=== PATIENT | male | born 1960 | race Caucasian/White ===

== ENCOUNTER 2023-08-19 07:12 | Emergency (ER) | payer OTHER, SELFPAY ==
[2023-08-19 07:26] VITALS: BP 148/85; PULSE 64; TEMP 36.7; O2SAT 95; BMI 27.8
--- NOTE | 2023-08-19 07:40 | XR_ITS ---
The [address] [address] Patient Name: ROXIE LYNCH MRN: [id number] date: 1960 Sex: M Assigned Patient Location: ER Current Patient Location: ER Accession/Order Number: [id number] Exam Date: 08/19/2023 07:45 Report Date: 08/19/2023 08:36 At the request of: ROXIE HARRIS Procedure: XR wrist LT min 3V PROCEDURE: XR wrist LT min 3V DATE: 08/19/2023 6:45 AM CDT COMPARISONS: None CLINICAL INDICATION: pain, fall FINDINGS: There is no evidence of fractures or other acute osseous abnormalities. There is mild first carpometacarpal degenerative change. There is evidence of mild radiocarpal degenerative change. There is slight cystic change of the proximal row carpal bones and of the distal ulna probably related to radiocarpal degenerative changes. XR/XR wrist LT min 3V IMPRESSION: 1. There is evidence of degenerative changes of the wrist, as described above 2. There is no fractures or other acute osseous abnormalities. Electronically authenticated by: ZOHAIB SETHI Date: 08/19/2023 08:36
--- NOTE | 2023-08-19 07:40 | XR_ITS ---
The [address] [address] Patient Name: ROXIE LYNCH MRN: [id number] date: 1960 Sex: M Assigned Patient Location: ER Current Patient Location: ED.MAIN Accession/Order Number: [id number] Exam Date: 08/19/2023 07:45 Report Date: 08/19/2023 08:32 At the request of: ROXIE HARRIS Procedure: XR elbow LT min 3V PROCEDURE: XR elbow LT min 3V DATE: 08/19/2023 6:45 AM CDT COMPARISONS: None CLINICAL INDICATION: pain, fall FINDINGS: There is an oblique fracture of the radial head. An 11 mm lateral chip fracture fragment is displaced distally 1 to 2 mm No other fractures identified. All other osseous structures in good alignment. An elbow joint effusion is noted. XR/XR elbow LT min 3V IMPRESSION: Slightly displaced oblique fracture of the radial head associated joint effusion Electronically authenticated by: ZOHAIB SETHI Date: 08/19/2023 08:32
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
[2023-08-19 09:29] VITALS: PULSE 78; O2SAT 99
== END 2023-08-19 09:32 | disposition home or self-care (01) ==
PROVIDERS: Emergency Provider Student in an Organized Health Care Education/Training Program
DX: S52.122A Displaced fracture of head of left radius, initial encounter for closed fracture (principal); Y93.55 Activity, bike riding
CPT/HCPCS: 29105; 73080; 73110; 99283

== ENCOUNTER 2023-08-27 10:55 | Outpatient (OUT) | payer OTHER, SELFPAY ==
--- NOTE | 2023-08-27 | XR_ITS ---
[address] [address] Patient Name: ROXIE LYNCH MRN: [id number] date: 1960 Sex: M Assigned Patient Location: Current Patient Location: Accession/Order Number: [id number] Exam Date: 08/27/2023 10:56 Report Date: 08/28/2023 06:53 At the request of: TINO LIPSCOMB Procedure: XR wrist LT min 3V PROCEDURE: XR wrist LT min 3V, XR forearm LT 2V HISTORY: LEFT WRIST PAIN COMPARISON: XR wrist left 08/19/2023 FINDINGS: BONES:Small nondisplaced fracture with mild cortical step off involving the radial head articular surface. Mild degenerative change of the wrist joint. SOFT TISSUES:No visible soft tissue swelling. EFFUSION:None visible. OTHER: Negative. XR/XR wrist LT min 3V IMPRESSION: 1. Stable nondisplaced to very minimally displaced radial head fracture. 2. Mild degenerative changes of the wrist. No acute bone abnormality of the wrist. Electronically authenticated by: TINO ANN Date: 08/28/2023 06:53
--- NOTE | 2023-08-27 | XR_ITS ---
[address] [address] Patient Name: ROXIE LYNCH MRN: [id number] date: 1960 Sex: M Assigned Patient Location: Current Patient Location: Accession/Order Number: [id number] Exam Date: 08/27/2023 11:11 Report Date: 08/28/2023 06:53 At the request of: TINO LIPSCOMB Procedure: XR forearm LT 2V PROCEDURE: XR wrist LT min 3V, XR forearm LT 2V HISTORY: LEFT WRIST PAIN COMPARISON: XR wrist left 08/19/2023 FINDINGS: BONES:Small nondisplaced fracture with mild cortical step off involving the radial head articular surface. Mild degenerative change of the wrist joint. SOFT TISSUES:No visible soft tissue swelling. EFFUSION:None visible. OTHER: Negative. XR/XR forearm LT 2V IMPRESSION: 1. Stable nondisplaced to very minimally displaced radial head fracture. 2. Mild degenerative changes of the wrist. No acute bone abnormality of the wrist. Electronically authenticated by: TINO ANN Date: 08/28/2023 06:53
== END 2023-08-27 10:56 | disposition home or self-care (01) ==
LOC: EC 10:55
PROVIDERS: Visit Provider Orthopaedic Surgery
DX: S52.125D Nondisplaced fracture of head of left radius, subsequent encounter for closed fracture with routine healing (principal)
CPT/HCPCS: 73090; 73110

== ENCOUNTER 2023-09-03 12:25 | Outpatient (OUT) | payer OTHER, SELFPAY ==
--- NOTE | 2023-09-03 | XR_ITS ---
The [address] [address] Patient Name: ROXIE LYNCH MRN: [id number] date: 1960 Sex: M Assigned Patient Location: Current Patient Location: Accession/Order Number: [id number] Exam Date: 09/03/2023 12:35 Report Date: 09/04/2023 08:29 At the request of: TINO LIPSCOMB Procedure: XR elbow LT min 3V PROCEDURE: XR elbow LT min 3V COMPARISON: 08/19/2023 HISTORY: LEFT ELBOW PAIN FINDINGS: BONES:Stable healing intra-articular fracture of the radial head best seen on image #2 and 3. No additional fracture or dislocation. SOFT TISSUES:Negative. No visible soft tissue swelling. EFFUSION:Elbow joint effusion with displacement of the anterior and posterior fat pads OTHER: Negative. XR/XR elbow LT min 3V IMPRESSION: Stable healing radial head fracture with small joint effusion Electronically authenticated by: PATTI ALBRECHT Date: 09/04/2023 08:29
== END 2023-09-03 12:26 | disposition home or self-care (01) ==
LOC: EC 12:25
PROVIDERS: Visit Provider Orthopaedic Surgery
DX: S52.125D Nondisplaced fracture of head of left radius, subsequent encounter for closed fracture with routine healing (principal)
CPT/HCPCS: 73080

== ENCOUNTER 2023-10-01 10:00 | Outpatient (OUT) | payer OTHER, SELFPAY ==
--- NOTE | 2023-10-01 | XR_ITS ---
The [address] [address] Patient Name: ROXIE LYNCH MRN: [id number] date: 1960 Sex: M Assigned Patient Location: Current Patient Location: Accession/Order Number: [id number] Exam Date: 10/01/2023 10:00 Report Date: 10/02/2023 06:53 At the request of: TINO LIPSCOMB Procedure: XR elbow LT min 3V PROCEDURE: XR elbow LT min 3V HISTORY: LEFT ELBOW PAIN COMPARISON: XR elbow left 09/03/2023, 08/19/2023 FINDINGS: BONES:Subtle residual fracture line visible within the radial head extending into the articular surface. No change in alignment. SOFT TISSUES:Small joint effusion. EFFUSION:None visible. OTHER: Negative. XR/XR elbow LT min 3V IMPRESSION: 1. Stable alignment and ongoing bone healing of radial head fracture. Electronically authenticated by: TINO ANN Date: 10/02/2023 06:53
--- OUTSIDE RECORDS SUMMARY | 2023-10-01 10:17 | XMS_ITS | CCD ---
Author Organization [facility] Care Team Providers Care Overhead Foreman Name Role Phone Placeway DO, Tadeo Unavailable Anton Walton MD Primary Care Provider Gen Cuevas MD Unavailable Placeway DO, Tadeo Unavailable Anton Walton MD Primary Care Provider Gen Cuevas MD Unavailable Kimberly Rajan Unavailable Placeway DO, Tadeo Unavailable [phone] Anton Walton MD Primary Care Provider Gen Cuevas MD Unavailable Kimberly Rajan Unavailable Torsten Mosqueda MD Primary Care Provider [phone] TORSTEN MOSQUEDA Primary Care Unavailable PROVIDER, UNKNOWN Admitting Unavailable ANTON WALTON Attending Unavailabl e ANTON WALTON Primary Care Unavailabl e Medications Current Medications Medication Drug Class(es) Dates Sig (Normalized) Sig (Original) atorvastatin 20 mg oral tablet (20 sources) HMG-CoA Reductase Inhibitor Start: 2 End: 5 take 1 tablet by mouth once daily atorvastatin (LIPITOR) 20 mg tablet Take 1 tablet by mouth once daily 90 Tablet 3 07/12/2023 Active cetirizine hydrochloride 10 mg oral tablet (1 source) Histamine-1 Receptor Antagonist Start: 4 End: 4 take 1 tablet by mouth once daily cetirizine (ZYRTEC) 10 mg tablet Indications: Seasonal allergic rhinitis, unspecified trigger Take 1 tablet by mouth once daily. 30 tablet 0 06/20/2023 07/20/2023 Active ciclopirox 80 mg/ml topical solution (1 source) Start: 4 ciclopirox (PENLAC) 8 % solution Apply topically at bedtime. 6 mL 3 08/06/2023 Active famotidine 20 mg oral tablet (20 sources) Histamine-2 Receptor Antagonist Start: 2 End: 3 take 1 tablet by mouth twice daily as needed famotidine (PEPCID) 20 MG tablet TAKE 1 TABLET BY MOUTH TWICE DAILY NEEDED 180 Tablet 3 09/06/2021 Active fluticasone propionate 0.05 mg/actuat metered dose nasal spray (1 source) Corticosteroid Start: 4 take 1 spray(s) nasal route once daily fluticasone (FLONASE ALLERGY RELIEF) 50 mcg/actuation nasal spray Indications: Seasonal allergic rhinitis, unspecified trigger Use 1 [place] in each nostril once daily. 11.1 mL 0 06/20/2023 Active methylPREDNISolone (1 source) Corticosteroid Start: 4 End: 4 methylPREDNISolone (MEDROL, SHEKHAR,) 4 mg Dose-Pack Indications: Seasonal allergic rhinitis, unspecified trigger Take as instructed per package. 21 tablet 0 06/20/2023 06/26/2023 Active metroNIDAZOLE 500 mg oral tablet (2 sources) Nitroimidazole Antimicrobial Start: 2 End: 2 take 1 tablet by mouth twice daily metronidazole (FLAGYL) 500 MG tablet Indications: Abdominal bloating , Gastroesophageal reflux disease, unspecified whether esophagitis present , Hyperlipidemia, unspecified hyperlipidemia type Take 1 Tablet by mouth 2 times daily for 7 days. 14 Tablet 0 11/01/2021 11/08/2021 Active triamcinolone acetonide 1 mg/ml topical cream (19 sources) Corticosteroid Start: 2 End: 4 triamcinolone 0.1 % cream Indications: Gastroesophageal reflux disease, unspecified whether esophagitis present , Duodenitis , Hyperlipidemia, unspecified hyperlipidemia type , Elevated LFTs , Erectile disorder due to medical condition in male , Elevated blood sugar Apply thin layer to affected area BID PRN. 80 g 2 08/03/2023 Active Completed/Discontinued Medications Medication Drug Class(es) Dates Sig (Normalized) Sig (Original) bisacodyl 5 mg delayed release oral tablet (7 sources) Stimulant Laxative Start: 2 End: 2 bisacodyl (Dulcolax) 5 MG enteric coated tablet Take as directed for colonoscopy preparation 4 Tablet 0 05/18/2021 07/22/2021 Discontinued docosahexaenoic acid 120 mg / eicosapentaenoic acid 180 mg oral capsule (14 sources) End: 2 [place]-3 Fatty Acids (Fish Oil) 1000 MG CAPS Take by mouth. 0 11/28/2021 Discontinued efinaconazole 100 mg/ml topical solution (3 sources) Azole Antifungal Start: 4 End: 4 Efinaconazole (Jublia) 10 % SOLN Indications: Elevated blood sugar Apply to affected toenail(s) daily for 48 weeks; ensure complete coverage of the toenail, the toenail folds, toenail bed, surrounding skin, and the undersurface of the toenail plate. 8 mL 3 08/03/2023 08/17/2023 Discontinued Gadoterate Meglumine (DOTAREM) 10 MMOL/20ML solution (1 source) Start: 2 End: 2 Gadoterate Meglumine (DOTAREM) 10 MMOL/20ML solution loratadine 10 mg oral tablet (1 source) End: 4 take 1 tablet by mouth once daily loratadine (CLARITIN) 10 mg tablet Take 10 mg by mouth once daily. 0 06/20/2023 Discontinued (Course of therapy completed) omeprazole 40 mg delayed release oral capsule (3 sources) Proton Pump Inhibitor Start: 2 End: 2 take 1 capsule by mouth once daily omeprazole (PRILOSEC) 40 MG capsule Indications: Rash of back , Gastroesophageal reflux disease, unspecified whether esophagitis present , Duodenitis , Hyperlipidemia, unspecified hyperlipidemia type , Elevated LFTs Take 1 Capsule by mouth daily. 56 Capsule 0 07/22/2021 11/01/2021 Discontinued ondansetron 4 mg disintegrating oral tablet (10 sources) Serotonin-3 Receptor Antagonist Start: 2 End: 2 take 1 tablet by mouth every six hours as needed for nausea ondansetron (Zofran ODT) 4 MG disintegrating tablet Take 1 Tablet by mouth every 6 hours as needed for Nausea (Vomiting). Place 1 tablet under tongue as needed for nausea. 20 Tablet 0 04/25/2021 07/22/2021 Discontinued saccharomyces boulardii 250 mg oral capsule (12 sources) Start: 2 End: 2 take 1 capsule by mouth twice daily Saccharomyces boulardii (Probiotic) 250 MG CAPS Take 1 Capsule by mouth 2 times daily. 60 Capsule 3 05/02/2021 11/01/2021 Discontinued tadalafil 10 mg oral tablet (20 sources) Phosphodiesterase 5 Inhibitor Start: 1 End: 4 tadalafil (CIALIS) 10 MG tablet Indications: Erectile disorder due to medical condition in male Take 1 Tablet by mouth as needed for Erectile Dysfunction. 30 minutes prior to anticipated sexual activity as one single dose and not more than once daily. 20 Tablet 2 05/28/2023 08/03/2023 Discontinued (Reorder (*won't e-cancel)) Problems Active Problems Problem Classification Problem Date Documented Da te Episodic/Chronic Diabetes mellitus without complication (2 sources) Hyperglycemia; Translations: [Hyperglycemia, unspecified] 08-03-2023 Episodic Disorders of lipid metabolism (20 sources) Hyperlipidemia; Translations: [Hyperlipidemia, unspecified] Onset: 2 Chronic Diverticulosis and diverticulitis (20 sources) Diverticulitis of intestine; Translations: [Diverticulitis of intestine, part unspecified, without perforation or abscess without bleeding] Onset: 2 04-05-2021 Chronic Esophageal disorders (20 sources) Gastroesophageal reflux disease; Translations: [Gastro-esophageal reflux disease without esophagitis] Onset: 2 Chronic Gastritis and duodenitis (20 sources) Duodenitis; Translations: [Duodenitis without bleeding] Onset: 2 Episodic Immunizations and screening for infectious disease (3 sources) Patient encounter status; Translations: [Encounter for laboratory testing for severe acute respiratory syndrome coronavirus 2 (SARS-CoV-2)] Episodic Miscellaneous mental health disorders (20 sources) Male erectile disorder; Translations: [Impotence of organic origin] Onset: 1 12-15-2020 Chronic Other gastrointestinal disorders (3 sources) Abdominal bloating; Translations: [Abdominal distension (gaseous)] Episodic Other gastrointestinal disorders (2 sources) Passing flatus; Translations: [Flatulence] Episodic Other gastrointestinal disorders (2 sources) Loose stool; Translations: [Other fecal abnormalities] Episodic Other liver diseases (4 sources) Steatosis of liver; Translations: [Fatty (change of) liver, not elsewhere classified] Chronic Other male genital disorders (7 sources) Secondary erectile dysfunction; Translations: [Erectile dysfunction due to diseases classified elsewhere] Onset: 1 Chronic Other nutritional; endocrine; and metabolic disorders (2 sources) Body mass index 25-29 - overweight; Translations: [Body mass index (BMI) 27.0-27.9, adult] Episodic Other nutritional; endocrine; and metabolic disorders (5 sources) Overweight in adulthood with body mass index of 25 or more but less than 30; Translations: [Body mass index (BMI) 28.0-28.9, adult] Episodic Other screening for suspected conditions (not mental disorders or infectious disease) (20 sources) Other specified abnormal findings of blood chemistry; Translations: [Other abnormal blood chemistry] Onset: 2 Episodic Other skin disorders (2 sources) Eruption; Translations: [Rash and other nonspecific skin eruption] Episodic Other upper respiratory disease (1 source) Seasonal allergic rhinitis; Translations: [Other seasonal allergic rhinitis] 06-20-2023 Chronic Pancreatic disorders (not diabetes) (1 source) Idiopathic chronic pancreatitis; Translations: [Other chronic pancreatitis] Chronic Spondylosis; intervertebral disc disorders; other back problems (20 sources) Disorder of lumbar spine; Translations: [Spondylosis without myelopathy or radiculopathy, lumbar region] Onset: 1 12-15-2020 Chronic Past or Other Problems Problem Classification Problem Date Documented Da te Episodic/Chronic Gastrointestinal hemorrhage (20 sources) Black feces; Translations: [Melena] Onset: 04-05-2021 04-05-2021 Episodic Genitourinary symptoms and ill-defined conditions (20 sources) Nocturia; Translations: [Nocturia] Onset: 12-15-2020 12-15-2020 Episodic Other and unspecified benign neoplasm (20 sources) History of polyp of colon; Translations: [Personal history of colonic polyps] Onset: 02-16-2016 04-19-2020 Episodic Other gastrointestinal disorders (20 sources) Alteration in bowel elimination; Translations: [Change in bowel habit] Onset: 04-05-2021 04-05-2021 Episodic Other gastrointestinal disorders (6 sources) Altered bowel function; Translations: [Change in bowel habit] Onset: 04-05-2021 04-05-2021 Episodic Residual codes; unclassified (20 sources) Family history of cancer of colon; Translations: [Family history of malignant neoplasm of digestive organs] Onset: 02-16-2016 04-19-2020 Episodic Results Test Name Value Interpretation Reference Range Facility Patient Instructionson 08-02 Fire Prevention Specialist Authentication Interface Message Text RSV vaccine recommended from pharmacy. Normal [facility] Progress Noteson 08-03-2023 Fire Prevention Specialist Authentication Interface Message Text Follow up. History of Present Illness: 63 year old male seen and assessed. Right sided sciatica , lumbar disorder, sub acute condition much better. Fh colon cancer, next colonoscopy due in 2021. Monitor spot on chest round left chest small area. Intermittent rash on buttocks, folliculitis? Has been to [place] for honeymoon. Likes to be on boat in summer. Alcohol summer some times. Env allergies more mucus these days. 1 daughter , planning to be in [place] soon. Dad in 2020. Trouble maintaining erection, has used cialis in the past done well, in the past. dating a girl. 06/03/21 63 year old male seen and assessed. hld borderline glucose. pepcid taking helping stomach. In afternoon at times feels little unsteady, and is intermittent. Was on tums , and mild elevation in calcium, has stopped since in er few weeks ago. Recent scan show small polyp, in gastric antrum first portion of duodenum? Hepatic steatosis Colonoscopy and endoscopy happening soon. 07/22/21 63 year old male seen and assessed. stomach symptoms ongoing Gerd. Taking lipitor. counseled on covid booster. daughter teaching israeli in [place]. 11/01/21 63 year old male seen and assessed. Feels better but abd still bloated after eating. Had covid in August 2021. Moving bowels once daily. Will be getting blood work today. 4 drinks a week alcohol. 08/03/23 63 year old male seen and assessed. Post nasal drip concerns current meds not helping. Bloating improved after decreased fruits intake. Bug spray with d using. Daughter back , doing masters now. In [place]. 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 Biking, walking. Walking 6 miles, right toes cause problems but wants to wait at this time. Pepcid as needed. Wagu beef,/[employer], [place], beef delicious . Lipids (last 3 years, up to 8 values) 11/01/2021 06/09/2021 12/16/2020 4:12 PM 8:02 AM 7:55 AM Chol- esterol 140 232 187 TG 221 139 262 HDL 33 32 28 LDL 78 182 125 Chol / HDL 4.24 7.25 6.68 LDL / HDL 2.36 5.69 4.46 Non HDL 107 200 159 The 10-year ASCVD risk score (Antony RAZA, et al., 2019) is: 9.8% Lab Results Component Value Date HBA1C 5.6 12/17/2020 Orders placed or performed during the hospital encounter of 06/08/21 COLONOSCOPY, FLEXIBLE; W/REMOVAL, LESION, SNARE COLONOSCOPY, FLEXIBLE; W/REMOVAL, LESION, SNARE COLONOSCOPY, FLEXIBLE, PROXIMAL TO SPLENIC FLEXURE; DX, W/WO SPECIMENS/COLON DECOMP (SEP PROC) COLONOSCOPY, FLEXIBLE, PROXIMAL TO SPLENIC FLEXURE; DX, W/WO SPECIMENS/COLON DECOMP (SEP PROC) The 10-year ASCVD risk score (Antony RAZA, et al., 2019) is: 9.8% Orders placed or performed during the hospital encounter of 06/08/21 COLONOSCOPY, FLEXIBLE; W/REMOVAL, LESION, SNARE COLONOSCOPY, FLEXIBLE; W/REMOVAL, LESION, SNARE COLONOSCOPY, FLEXIBLE, PROXIMAL TO SPLENIC FLEXURE; DX, W/WO SPECIMENS/COLON DECOMP (SEP PROC) COLONOSCOPY, FLEXIBLE, PROXIMAL TO SPLENIC FLEXURE; DX, W/WO SPECIMENS/COLON DECOMP (SEP PROC) Vitals: 08/03/23 1325 BP: 121/66 Pulse: Resp: Temp: SpO2: Past Medical History: Lumbar disorder Sciatica Past Surgical History: Left hand 5th finger surgery had surgery Social History: Social History Socioeconomic History Marital status: Highest education level: 12th grade Tobacco Use Smoking status: Never Smokeless tobacco: Never Substance and Sexual Activity Alcohol use: Yes Comment: occ Drug use: Not Currently Social Determinants of Health Financial Resource Strain: Low Risk (08/02/2023) Overall Financial Resource Strain (CARDIA) Difficulty of Paying Living Expenses: Not very hard Food Insecurity: No Food Insecurity (08/02/2023) Hunger Vital Sign Worried About Running Out of Food in the Last Year: Never true Ran Out of Food in the Last Year: Never true Transportation Needs: No Transportation Needs (08/02/2023) PRAPARE - Transportation Lack of Transportation (Medical): No Lack of Transportation (Non-Medical): No Physical Activity: Sufficiently Active (08/02/2023) Exercise Vital Sign Days of Exercise per Week: 6 days Minutes of Exercise per Session: 60 min Stress: Stress Concern Present (08/02/2023) [place] [employer] Occupational [employer] - Occupational Stress Questionnaire Feeling of Stress : To some extent Social Connections: Socially Isolated (08/02/2023) Social Connection and Isolation Panel [NHANES] Frequency of Communication with Friends and Family: Three times a week Frequency of Social Gatherings with Friends and Family: Twice a week Attends Hindu Services: Never Active Member of Clubs or Organizations: No Attends Club or Organization Meetings: Never Marital Status: Intimate Partner Violence: Not At Risk (08/02/2023) Humiliation, Afraid, Rape, and Kick questionnaire Fear of Current or Ex-Partner: No Emotionally Abused: No Physically Abused: No Sexually Abused: No Family History: Mom and dad passe (more content not included)... Normal [facility] Fire Prevention Specialist Authentication Interface Message Text Patient was identified by name and date of . Dolly WoodardoPatient was identified by name and date of . Patient at risk for falls:No Falls Risk protocol implemented: No Shingles vaccine was given. VIS sheet was given. Normal [facility] Kelsie 06-20-2023 MATT Office Visit (EXPNOL) SOTOSERGEI ([id number]) 1960 M Date Time Provider Department 06/20/23 12:20 PM KRISKRYSTA GARCIA JOANNE During your visit today, we recorded the following information about you: Temperature Pulse Respiration Blood pressure 98 degrees 72/minute 16/minute 133/80 Weight 93.8 kg Ce HyattAPRN. harjitMANAGER FLIGHT 06/20/2023 1:55 PM Signed Increase fluid intake (WATER) and REST, as much as possible Can take acetaminophen and/or ibuprofen, as directed, for pain or fever. Avoid NSAIDs (ie: ibuprofen/Advil/Alev e/motrin) with any history of ulcers or gastric surgery Use a cool-mist vaporizer or humidifier Can use over the counter cough lozenges with menthol- use as directed on the package. Encouraged use of Flonase (nasal steroid to help decrease inflammation). Remember, you must be consistent with use to allow the steroid to build-up adequately in your nasal tissue. Insert nozzle into each nostril, angle towards outside of your nose, take very small sniff . Encouraged to use nightly before going to bed. Saline nasal spray can be used for nasal congestion, as needed. Consider taking a daily antihistamine if you have a lot of drainage/runny nose, such as Claritin/Zyrtec/Xyza l/Christy, etc. Take antibiotics as prescribed - to completion- and with food. Encouraged probiotic or yogurt with live cultures (not within 1-2 hours of antibiotics) If you have high blood pressure, AVOID decongestants. If you are a diabetic, make sure you are closely monitoring your blood sugar levels as they can become unstable with illness. - Follow up with your PCP if you continue to experience symptoms, if they return shortly after treatment, or if they worsen - If symptoms are ongoing and/or recurrent, you may need to follow up with an clean room operator and/or ENT - Go to the ER if you begin to experience any severe symptoms, such as facial, eye, or cheek swelling on one side of your face, labored breathing/difficulty breathing, shortness of breath or chest pain, stiffness in neck, difficulty waking up or lethargy, severe headaches, or a rash that looks like a bruise Bulat, Krysta, GIFT SHOP ASSISTANT.BLAYNE 06/20/2023 2:31 PM Signed This note was created using Trendratingriter. Subjective Sergei Soto is a 63 year old male. Patient presents with concerns for sinus pressure and thick nasal mucous x 2 weeks. Patient reports an initial iprovement of symptoms before a decline the last few days. Patient takes Claritin with little impact. Denies any fever or chills. The history is provided by the patient. No senior controls technician was used. Sinus Problem This is a new problem. The current episode started 1 to 4 weeks ago. The problem occurs constantly. The problem has been unchanged. Associated symptoms include congestion, coughing and fatigue. Pertinent negatives include no chest pain, chills, fever, headaches or nausea. Review of Systems Constitutional: Positive for fatigue. Negative for chills and fever. HENT: Positive for congestion, sinus pressure and sinus pain. Eyes: Negative. Respiratory: Positive for cough. Negative for shortness of breath. Cardiovascular: Negative for chest pain. Gastrointestinal: Negative for nausea. Genitourinary: Negative for dysuria. Musculoskeletal: Negative. Neurological: Negative for dizziness and headaches. All other systems reviewed and are negative. Objective BP 133/80 (BP Site: Left Arm, BP Position: Sitting, BP Cuff Size: Regular Adult) Pulse 72 Temp 36.7 ?C (98 ?F) (Temporal) Resp 16 Wt 93.8 kg (206 lb 12.7 oz) SpO2 98% BMI 28.05 kg/m? Physical Exam Vitals and nursing note reviewed. HENT: Head: Normocephalic. Right Ear: Tympanic membrane is injected. Left Ear: Tympanic membrane is injected. Nose: Congestion present. Right Turbinates: Enlarged. Left Turbinates: Enlarged. Mouth/Throat: Mouth: Mucous membranes are moist. Pharynx: Oropharynx is clear. Eyes: Pupils: Pupils are equal, round, and reactive to light. Cardiovascular: Rate and Rhythm: Normal rate and regular rhythm. Heart sounds: Normal heart sounds. Pulmonary: Effort: Pulmonary effort is normal. Breath sounds: Normal breath sounds. Musculoskeletal: Cervical back: Neck supple. No tenderness. Skin: General: Skin is warm and dry. Neurological: Mental Status: He is alert and oriented to person, place, and time. Assessment and Plan ASSESSMENT/PLAN: 1. Seasonal allergic rhinitis, unspecified trigger - ICD9: 477.9, ICD10: J30.2 - ~ 2 weeks of sinus pressure and thick nasal mucous - Recent eval by PCP without complaints - Physical exam notable for enlarged nasal turbinates and bilateral tympanic injection. Lungs clear, posterior pharynx without erythema - Denies fever/chills - Plan for targeted symptom management with escalation of antihistamine, addition of nasal steroid and Medro (more content not included)... Normal [facility] Telephone Encounteron 2023 Fire Prevention Specialist Authentication Interface Message Text Patient has not been seen by this Provider or Department in more than 1 year. Pharmacy has sent a Skyonic message to the patient to schedule an office visit. Thank you Normal [facility] LIVER ELASTOGRAPHYon 022 Tiara Blackburn APRN-CNP 12/19/2021 4:35 PM Velocity Controlled Transient Elastography (Fibroscan) Batch Records Clerk: Suzette Tamayo Attending: Tiara Blackburn APRN-CNP Patient was identified via name and . Sergei Soto presents to endoscopy suite for VCTE. Referring Provider: Self Patient Diagnosis: Hepatic steatosis [254418] Two Pt identifiers where confirmed. Pt procedure and orders verified verbal consent obtained. Probe used: XL Pre-procedure Checklist Presence of ascites? Yes Fasting for at least three hours? Yes Alcohol use? No History of right heart failure? No LFT's (last 3 years, up to 5 values) (Last 5 results in the past 3 years) T Prot Albumin D Bili T Bili Alk Phos ALT AST 12/16/21 0846 7.2 4.6 0.30 1.5 83 105 56 11/01/21 1612 7.3 4.6 0.20 1.2 91 71 57 06/09/21 0802 7.4 4.5 0.10 1.1 80 58 38 04/25/21 1428 7.4 4.7 0.10 0.6 87 50 29 03/17/21 0936 7.3 4.1 0.20 1.1 82 22 13 ] Platelet Date Value Ref Range Status 04/25/2021 156 150 - 400 K/uL Final 03/17/2021 162 150 - 400 K/uL Final Findings: Elastography Median kPa: 5.4 IQR/med (%): 9 Controlled Attenuation Parameter (CAP) Median (dB/m): 285 IQR : 58 Interpretation: Based on LSM of 5.4 KPa, the patient has evidence of No significant fibrosis (F0-F1) with Grade 2 steatosis. If F3 or F4 fibrosis, please formally refer patient to hepatology. Interpreting Provider: Tiara Blackburn, MICHAEL-BLAYNE [facility] HEPATIC FUNCTION PANELOrdere d By: Wisam Devries on 12-16-2021 Albumin [Mass/Vol] 4.6 g/dL 3.4 - 5.1 g/dL [facility] ALP [Catalytic activity/Vol] 83 U/L [facility] ALT [Catalytic activity/Vol] 105 U/L High [facility] AST [Catalytic activity/Vol] 56 U/L High [facility] Bilirubin [Mass/Vol] 1.5 mg/dL 0.1 - 1 .5 mg/dL [facility] Bilirubin.direct [Mass/Vol] 0.30 mg/dL 0.10 - 0.30 mg/dL [facility] Interpretation and review of laboratory results Abnormal [facility] Protein [Mass/Vol] 7.2 g/dL 5.7 - 8.1 g/dL [facility] Laboratory - Chemistry and C hemistry - challengeon 11-30-2021 IgA [Mass/Vol] 121 mg/dL 78 - 391 mg/dL [facility] CRP [Mass/Vol] 0.9 mg/dL High NINF - 0.8 mg/dL [facility] Laboratory - Serology - non- microon 11-30-2021 tTG IgA IA Qn (S) U/mL NINF - 15. 0 U/mL [facility] No Panel Informationon 11-30 Interpretation and review of laboratory results Normal [facility] Interpretation and review of laboratory results Abnormal [facility] Basic metabolic 2000 panelon 11-02-2021 Anion gap [Moles/Vol] 13 mmol/L 10 - 20 [facility] Calcium [Mass/Vol] 9.7 mg/dL 8.4 - 10. 4 mg/dL [facility] Chloride [Moles/Vol] 104 mmol/L 97 - 11 1 mmol/L [facility] CO2 [Moles/Vol] 25 mmol/L 21 - 30 mmol/L [facility] Creatinine [Mass/Vol] 1.27 mg/dL 0.8 - 1.3 mg/dL [facility] GFR/1.73 sq M.predicted MDRD (S/P/Bld) [Vol rate/Area] 64 mL/min/{1.73_m2} - PINF [facility] Comment on above: 2020 CKD EPI Equatio n using Creatinine without Race Comment: Estimated glomerular filtration rate (eGFR) is calculated without a race coefficient. Values should be interpreted in the context of the patient's full clinical presentation. Reference: 1. Jack C, Skyla M, Hattie LOVE, et al.. A Unifying Approach for GFR Estimation: Recommendations of the NKF-ASN Task Force on Reassessing the Inclusion of Race in Diagnosing Kidney Disease. [place] Journal of Kidney Diseases 202;79(2):268-88.e1. 2. N Engl J Med 2020 Vol. 385 Issue 19 Pages 1491-0500 Glucose [Mass/Vol] 93 mg/dL 80 - 116 mg/dL [facility] Interpretation and review of laboratory results Normal [facility] Potassium [Moles/Vol] 4.0 mmol/L 3.3 - 5.3 mmol/L [facility] Sodium [Moles/Vol] 138 mmol/L 135 - 148 mmol/L [facility] Urea nitrogen [Mass/Vol] 13 mg/dL 8 - 22 mg/dL [facility] HEPATIC FUNCTION PANELon Albumin [Mass/Vol] 4.6 g/dL 3.4 - 5.1 g/dL [facility] ALP [Catalytic activity/Vol] 91 U/L [facility] ALT [Catalytic activity/Vol] 71 U/L High [facility] AST [Catalytic activity/Vol] 57 U/L High [facility] Bilirubin [Mass/Vol] 1.2 mg/dL 0.1 - 1 .5 mg/dL [facility] Bilirubin.direct [Mass/Vol] 0.20 mg/dL 0.1 - 0.3 mg/dL [facility] Interpretation and review of laboratory results Abnormal [facility] Protein [Mass/Vol] 7.3 g/dL 5.7 - 8.1 g/dL [facility] Lipid 1996 panelon Cholesterol [Mass/Vol] 140 mg/dL NINF - 200 mg/dL [facility] Cholesterol in HDL [Mass/Vol] 33 mg/dL Low 44 - PINF mg/dL [facility] Cholesterol in LDL [Mass/Vol] 78 mg/dL NINF - 111 mg/dL [facility] Cholesterol in LDL/Cholesterol in HDL [Mass ratio] 2.36 {ratio} NINF - 3.57 [facility] Cholesterol non HDL [Mass/Vol] 107 mg/dL NINF - 130 mg/dL [facility] Cholesterol.total/Ch olesterol in HDL [Mass ratio] 4.24 {ratio} NINF - 5.00 [facility] Interpretation and review of laboratory results Abnormal [facility] Triglyceride [Mass/Vol] 221 mg/dL High NINF - 151 mg/dL [facility] MR CHOLANG/PANCREAS (MRCP) W /+W/Oon 05-16-2021 EXAMINATION: MR CHOLANG/PANCREAS (MRCP) W/+W/O CLINICAL HISTORY: Reason for Exam: Pancreatitis, chronic; unclear etiology of chronic pancreatitis ASSOCIATED DIAGNOSIS: Idiopathic chronic pancreatitis (HCC) TECHNOLOGISTS NOTE: Performed under anesthesia. COMPARISON: None TECHNIQUE: Patient questionnaire was completed and was reviewed by MRI personnel prior to the patient entering the scanner. Multiplanar, multislice MR imaging of the abdomen was performed with and without intravenous contrast. INTRA-PROCEDURE MEDS: Gadoterate Meglumine (DOTAREM) 10 MMOL/20ML solution 15 mL INTRAVENOUS FINDINGS: Respiratory motion artifact: Grade 2: Mild artifact Liver parenchyma: Loss of signal is seen on the opo-hw-[id number] images compared to the in-phase images consistent with moderate hepatic steatosis. Liver focal lesions: There are no suspicious lesions. Subcentimeter cyst in the left hepatic dome (series 801, image 12). Hepatic vasculature: The portal vein is patent. Bile ducts: The common bile duct, common hepatic duct, and major intrahepatic biliary duct radicles are within normal limits. There is no evidence for contour abnormality or filling defect The common bile duct measures up to 4 mm in diameter. Gallbladder: Unremarkable Pancreas: The pancreatic duct is normal in course and caliber. There are no cystic or solid pancreatic masses appreciated. Spleen: Unremarkable Adrenal glands: Unremarkable Kidneys: No cystic or solid renal mass identified. Bowel: There is a 1.5 cm polypoid lesion in the distal gastric antrum/first portion of the duodenum (series 901, image 18), which is hyperintense on T2 imaging, enhances on postcontrast imaging and may represent either a polyp versus lipoma. Abdominal vasculature: Unremarkable Peritoneum and retroperitoneum: No significant volume of free fluid Lymph nodes: No abdominal lymphadenopathy is evident. Visualized musculoskeletal structures: No acute fracture or destructive osseous lesion is identified Included images of the lower thorax: No focal lung consolidation or pleural effusion. Bibasilar atelectasis. IMPRESSION: 1. No abnormality seen to explain chronic pancreatitis. Normal pancreas and gallbladder with no evidence of pancreatic divisum or cholelithiasis. 2. 1.5 cm polypoid lesion in the distal gastric antrum/first portion of the duodenum, could represent a polyp versus a lipoma. MACRO: None RADIOLOGY Rosemarie Purvis MD - 05/16/2021 EXAMINATION: MR CHOLANG/PANCREAS (MRCP) W/+W/O CLINICAL HISTORY: Reason for Exam: Pancreatitis, chronic; unclear etiology of chronic pancreatitis ASSOCIATED DIAGNOSIS: Idiopathic chronic pancreatitis (HCC) TECHNOLOGISTS NOTE: Performed under anesthesia. COMPARISON: None TECHNIQUE: Patient questionnaire was completed and was reviewed by MRI personnel prior to the patient entering the scanner. Multiplanar, multislice MR imaging of the abdomen was performed with and without intravenous contrast. INTRA-PROCEDURE MEDS: Gadoterate Meglumine (DOTAREM) 10 MMOL/20ML solution 15 mL INTRAVENOUS FINDINGS: Respiratory motion artifact: Grade 2: Mild artifact Liver parenchyma: Loss of signal is seen on the fji-op-loacd images compared to the in-phase images consistent with moderate hepatic steatosis. Liver focal lesions: There are no suspicious lesions. Subcentimeter cyst in the left hepatic dome (series 801, image 12). Hepatic vasculature: The portal vein is patent. Bile ducts: The common bile duct, common hepatic duct, and major intrahepatic biliary duct radicles are within normal limits. There is no evidence for contour abnormality or filling defect The common bile duct measures up to 4 mm in diameter. Gallbladder: Unremarkable Pancreas: The pancreatic duct is normal in course and caliber. There are no cystic or solid pancreatic masses appreciated. Spleen: Unremarkable Adrenal glands: Unremarkable Kidneys: No cystic or solid renal mass identified. Bowel: There is a 1.5 cm polypoid lesion in the distal gastric antrum/first portion of the duodenum (series 901, image 18), which is hyperintense on T2 imaging, enhances on postcontrast imaging and may represent either a polyp versus lipoma. Abdominal vasculature: Unremarkable Peritoneum and retroperitoneum: No significant volume of free fluid Lymph nodes: No abdominal lymphadenopathy is evident. Visualized musculoskeletal structures: No acute fracture or destructive osseous lesion is identified Included images of the lower thorax: No focal lung consolidation or pleural effusion. Bibasilar atelectasis. IMPRESSION: 1. No abnormality seen to explain chronic pancreatitis. Normal pancreas and gallbladder with no evidence of pancreatic divisum or cholelithiasis. 2. 1.5 cm polypoid lesion in the distal gastric antrum/first portion of the duodenum, could represent a polyp versus a lipoma. MACRO: None [facility] Radiology Study observation (narrative) [facility] MR CHOLANG/PANCREAS (MRCP) W /+W/OOrdered By: Rosemarie Purvis on 05-16-2021 [employer] Work Phone: Vital Signs Date Time Vital Sign Value Performing Clinician Faci johnsony 08-03-2023 13:25-0400 Diastolic blood pressure 66 mm[Hg] [facility] 08-03-2023 13:25-0400 Systolic blood pressure 121 mm[Hg] [facility] 08-03-2023 13:23-0400 Body height 182.9 cm Anton Walton MD Work Phone: [facility] 08-03-2023 13:23-0400 Body mass index (BMI) [Ratio] 28.09 kg/m2 Anton Walton MD [facility] 08-03-2023 13:23-0400 Body temperature 98.71 [degF] [facility] 08-03-2023 13:23-0400 Body weight 93.94 kg Anton [facility] 08-03-2023 13:23-0400 Heart rate 64 /min Anton Walton MD Work Phone: [facility] 08-03-2023 13:23-0400 Respiratory rate 18 /min Anton Walton MD Work Phone: [facility] 08-03-2023 13:23-0400 SaO2% (BldA) [Mass fraction] 99 % Anton Walton MD Work Phone: [facility] 06-20-2023 12:48-0400 Body mass index (BMI) [Ratio] 28.05 kg/m2 Krysta Bulat GIFT SHOP ASSISTANT.MANAGER FLIGHT Work Phone: [facility] 06-20-2023 12:48-0400 Body temperature 98.01 [degF] Krysta Bulat GIFT SHOP ASSISTANT.MANAGER FLIGHT Work Phone: [facility] 06-20-2023 12:48-0400 Body weight 93.8 kg Krysta Bulat GIFT SHOP ASSISTANT.MANAGER FLIGHT Work Phone: [facility] 06-20-2023 12:48-0400 Diastolic blood pressure 80 mm[Hg] Krysta Bulat GIFT SHOP ASSISTANT.MANAGER FLIGHT Work Phone: [facility] 06-20-2023 12:48-0400 Heart rate 72 /min Krysta Bulat GIFT SHOP ASSISTANT.MANAGER FLIGHT Work Phone: [facility] 06-20-2023 12:48-0400 Respiratory rate 16 /min Krysta Bulat GIFT SHOP ASSISTANT.MANAGER FLIGHT Work Phone: [facility] 06-20-2023 12:48-0400 SaO2% (BldA) [Mass fraction] 98 % Krysta Bulat GIFT SHOP ASSISTANT.MANAGER FLIGHT Work Phone: [facility] 06-20-2023 12:48-0400 Systolic blood pressure 133 mm[Hg] Krysta Bulat GIFT SHOP ASSISTANT.MANAGER FLIGHT Work Phone: [facility] 11-30-2021 09:37-0400 Body height 182.9 cm Kimberly Su APRN-MANAGER FLIGHT Work Phone: [facility] 11-30-2021 09:37-0400 Body mass index (BMI) [Ratio] 28.35 kg/m2 Kimberly Su APRN-MANAGER FLIGHT Work Phone: [employer] 11-30-2021 09:37-0400 Body temperature 97.5 [degF] Kimberly Su APRN-MANAGER FLIGHT Work Phone: [facility] 11-30-2021 09:37-0400 Body weight 94.8 kg Kimberly Su APRN-MANAGER FLIGHT Work Phone: [facility] 11-30-2021 09:37-0400 Diastolic blood pressure 76 mm[Hg] Kimberly Su APRN-MANAGER FLIGHT Work Phone: [facility] 11-30-2021 09:37-0400 Heart rate 76 /min Kimberly Su APRN-MANAGER FLIGHT Work Phone: [facility] 11-30-2021 09:37-0400 Respiratory rate 16 /min Kimberly Su APRN-MANAGER FLIGHT [facility]: [facility] 11-30-2021 09:37-0400 Systolic blood pressure 144 mm[Hg] Kimberly Su APRN-MANAGER FLIGHT [facility]: [facility] 11-01-2021 15:27-0400 Body height 182.9 cm Anton Walton MD Work [facility]: [facility] 11-01-2021 15:27-0400 Body mass index (BMI) [Ratio] 28.21 kg/m2 Anton Walton MD [facility] 11-01-2021 15:27-0400 Body temperature 97.39 [degF] Anton Walton MD Work Phone: [facility] 11-01-2021 15:27-0400 Body weight 94.35 kg Anton Walton MD Work Phone: [facility] 11-01-2021 15:27-0400 Diastolic blood pressure 67 mm[Hg] Anton Walton MD Work Phone: [facility] 11-01-2021 15:27-0400 Heart rate 59 /min Anton [facility] MD [facility] 11-01-2021 15:27-0400 Respiratory rate 16 /min Anton Wlaton MD Work [facility] 11-01-2021 15:27-0400 SaO2% (BldA) [Mass fraction] 100 % Anton Walton MD [facility] 11-01-2021 15:27-0400 Systolic blood pressure 133 mm[Hg] Anton Walton MD [facility] 07-22-2021 10:52-0400 Body mass index (BMI) [Ratio] 27.67 kg/m2 Anton Walton MD Work [facility] 07-22-2021 10:52-0400 Body temperature 97.59 [degF] Anton Walton MD [facility] 07-22-2021 10:52-0400 Body weight 92.53 kg Anton Walton MD Work [facility] 07-22-2021 10:52-0400 Diastolic blood pressure 67 mm[Hg] Anton Walton MD [facility] 07-22-2021 10:52-0400 Heart rate 89 /min Anton Walton MD [facility] 07-22-2021 10:52-0400 Systolic blood pressure 126 mm[Hg] Anton Walton MD [facility] 05-16-2021 15:45-0400 Diastolic blood pressure 70 mm[Hg] [address] [facility] 05-16-2021 15:45-0400 Heart rate 76 /min [facility] 05-16-2021 15:45-0400 Respiratory rate 15 /min [facility] 05-16-2021 15:45-0400 SaO2% (BldA) [Mass fraction] 96 % [address] 05-16-2021 15:45-0400 Systolic blood pressure 130 mm[Hg] [address] 05-16-2021 13:02-0400 Body height 182.9 cm 2 [facility] 05-16-2021 13:02-0400 Body mass index (BMI) [Ratio] 27.53 kg/m2 [address] 05-16-2021 13:02-0400 Body temperature 98.8 [degF] 2 [facility] 05-16-2021 13:02-0400 Body weight 92.08 kg 2 [facility] 05-09-2021 08:20-0400 Body height 182.9 cm Martyjuan antonio Bryan GIFT SHOP ASSISTANT-MANAGER FLIGHT Work Phone: [employer] 05-09-2021 08:20-0400 Body mass index (BMI) [Ratio] 27.94 kg/m2 Yazan Brayn GIFT SHOP ASSISTANT-MANAGER FLIGHT Work Phone: [employer] 05-09-2021 08:20-0400 Body temperature 96.6 [degF] Yazan Marylidya GIFT SHOP ASSISTANT-MANAGER FLIGHT Work Phone: [employer] 05-09-2021 08:20-0400 Body weight 93.44 kg Yazan Marylidya GIFT SHOP ASSISTANT-MANAGER FLIGHT Work Phone: [employer] 05-09-2021 08:20-0400 Diastolic blood pressure 68 mm[Hg] Martyjuan antonio Bryan GIFT SHOP ASSISTANT-MANAGER FLIGHT Work Phone: [employer] 05-09-2021 08:20-0400 Heart rate 70 /min Yazan Bryan GIFT SHOP ASSISTANT-MANAGER FLIGHT Work Phone: [employer] 05-09-2021 08:20-0400 Respiratory rate 16 /min Martyjuan antonio Bryan GIFT SHOP ASSISTANT-MANAGER FLIGHT Work Phone: [employer] 05-09-2021 08:20-0400 SaO2% (BldA) [Mass fraction] 100 % Martyjuan antonio Bryan GIFT SHOP ASSISTANT-MANAGER FLIGHT Work Phone: [facility] 05-09-2021 08:20-0400 Systolic blood pressure 118 mm[Hg] Yazan Marylidya GIFT SHOP ASSISTANT-MANAGER FLIGHT Work Phone: [facility] Encounters Encounter Date Encounter Type Care Provider Facility Start: 08-06-2023 End: 08-06-2023 ambulatory Anton Walton MD Work Phone: [facility] Comment on above: Ciclopirox generic e finaconazole Start: 08-06-2023 End: 08-06-2023 E-mail encounter from caregiver Anton Walton MD Work Phone: [facility] Start: 08-03-2023 End: 08-03-2023 Office outpatient visit 25 minutes Anton Walton MD Work Phone: [facility] Comment on above: Hyperlipidemia, unsp ecified hyperlipidemia type (Primary Dx); Gastroesophageal reflux disease, unspecified whether esophagitis present; Duodenitis; Elevated LFTs; Erectile disorder due to medical condition in male; Elevated blood sugar; Body mass index (BMI) 28.0-28.9, adult Start: 08-03-2023 End: 08-03-2023 Periodic preventive med est patient 40-64yrs Anton Walton MD Work Phone: [facility] Comment on above: Hyperlipidemia, unsp ecified hyperlipidemia type (Primary Dx); Gastroesophageal reflux disease, unspecified whether esophagitis present; Duodenitis; Elevated LFTs; Erectile disorder due to medical condition in male; Elevated blood sugar; Body mass index (BMI) 28.0-28.9, adult Start: 08-03-2023 End: 08-03-2023 ambulatory UNKNOWN PROVIDER Facility:[facility] Start: 07-12-2023 End: 07-12-2023 Refill Anton Walton MD Work Phone: [facility] Comment on above: Refill Start: 06-20-2023 End: 06-20-2023 ambulatory TORSTEN MOSQUEDA Facility:[facility] Start: 06-20-2023 End: 06-20-2023 Office outpatient visit 15 minutes Krysta Edmar GIFT SHOP ASSISTANT.MANAGER FLIGHT Work Phone: [facility] Comment on above: Seasonal allergic rh initis, unspecified trigger (Primary Dx) Start: 05-27-2023 Refill Anton Walton MD Work Phone: [facility] Comment on above: Refill Start: 03-04-2023 Letter encounter Tadeo Placewa y DO Work Phone: [facility] Start: 12-26-2021 Telephone encounter Kimberly dias GIFT SHOP ASSISTANT-MANAGER FLIGHT Work Phone: [facility] Gastroenterology Start: 12-19-2021 Refill Anton Walton MD Work Phone: [facility] Comment on above: Refill Start: 12-19-2021 End: 12-19-2021 Subsequent hospital visit by physician [facility] 1 [facility] Comment on above: Hepatic steatosis (P rimary Dx) Start: 12-16-2021 End: 12-16-2021 Clinical Support [facility] Pathology Start: 11-30-2021 End: 12-01-2021 Office outpatient visit 15 minutes Kimberly Su GIFT SHOP ASSISTANT-MANAGER FLIGHT Work Phone: [facility] Gastroenterology Comment on above: Bloating (Primary Dx ); Flatus; Hepatic steatosis; Loose stools; Body mass index (BMI) 28.0-28.9, adult Start: 11-28-2021 Letter encounter Tadeo Placewa y DO Work Phone: [facility] Start: 11-01-2021 End: 11-02-2021 Office outpatient visit 25 minutes Anton Walton MD Work Phone: [facility] Comment on above: Abdominal bloating ( Primary Dx); Gastroesophageal reflux disease, unspecified whether esophagitis present; Hyperlipidemia, unspecified hyperlipidemia type; Elevated LFTs; Body mass index (BMI) 28.0-28.9, adult Start: 11-01-2021 End: 11-01-2021 Clinical Support [facility] Work Phone: [facility] Comment on above: Arrived Start: 09-06-2021 Refill Anton Walton MD Work Phone: [facility] Comment on above: Refill Start: 07-22-2021 End: 07-22-2021 Office outpatient visit 25 minutes Anton Walton MD Work Phone: [facility] Comment on above: Gastroesophageal ref lux disease, unspecified whether esophagitis present (Primary Dx); Rash of back; Duodenitis; Hyperlipidemia, unspecified hyperlipidemia type; Elevated LFTs; Body mass index (BMI) 27.0-27.9, adult Start: 06-09-2021 Telephone encounter Anton Walton MD Work Phone: [facility] Comment on above: Discuss results test /procedures; reference -06/14/21 Start: 06-03-2021 Orders Only Kimberly Su GIFT SHOP ASSISTANT-MANAGER FLIGHT Work Phone: [facility] Gastroenterology Start: 05-31-2021 Orders Only Kimberly Su GIFT SHOP ASSISTANT-MANAGER FLIGHT Work Phone: [facility] Gastroenterology Start: 05-30-2021 Orders Only Kimberly Su GIFT SHOP ASSISTANT-MANAGER FLIGHT Work Phone: [facility] Gastroenterology Start: 05-20-2021 [facility] Start: 05-18-2021 Telephone encounter Abdoulaye wise MD Work Phone: [facility] Start: 05-16-2021 End: 05-16-2021 Subsequent hospital visit by physician Farideh Hunter MD Work Phone: [facility] Radiology Comment on above: Idiopathic chronic p ancreatitis (HCC) Start: 05-09-2021 End: 05-09-2021 Office outpatient new 45 minutes Yazan Bryan GIFT SHOP ASSISTANT-[facility] Work Phone: [facility] Pre-Surgical Evaluation Comment on above: Preop examination (P rimary Dx); Body mass index (BMI) 27.0-27.9, adult Start: 05-09-2021 End: 05-09-2021 Preprocedural examination done Yazan Bryan GIFT SHOP ASSISTANT-[facility] Work Phone: [facility] Pre-Surgical Evaluation Start: 05-05-2021 Letter encounter Tadeo Placewa y DO Work Phone: [facility] Patient Access Procedures Date Procedure Procedure Detail Performing Clinician Start: 12-19-2021 Liver elastography w /o imag w/i&r Tiara Blackburn GIFT SHOP ASSISTANT-[facility] Work Phone: Start: 12-16-2021 Hepatic function panel Anton Walton MD Work Phone: Start: 11-30-2021 C-reactive protein Kimberly Su GIFT SHOP ASSISTANT-[facility] Work Phone: Start: 11-01-2021 Hepatic function panel Anton Walton MD Work Phone: Start: 11-01-2021 Lipoprotein dir anabel high density cholesterol Anton Walton MD Work Phone: Start: 11-01-2021 Lipid 1996 panel - S annalee or Plasma Krysta Bulat GIFT SHOP ASSISTANT.[facility] Work Phone: Start: 06-08-2021 Colonoscopy Tadeo Plac eway DO Work Phone: Start: 05-16-2021 Mri abdomen w/o & w/contrast material Gen Cuevas MD Work Phone: Plan of Treatment Date Care Activity Detail Author Start: 06-09-2031 Screening for malignant neoplasm of colon [facility] Start: 11-01-2026 [facility] Start: 06-09-2026 Lipid panel Cholesterol [facility] Start: 03-10-2026 [facility] Start: 03-10-2026 Urine microalbumin profile DTaP,Tdap,Td Vaccine (2 - T d or Tdap) [facility] Start: 12-16-2025 Lipid panel Cholesterol [facility] Start: 12-16-2025 Prostate specific antigen measurement Prostate Cancer Screening Discussion [facility] Start: 11-01-2024 Diabetes Screening Diabetes Screening [facility] Start: 11-06-2023 Influenza vaccination Influenza Vaccine (#1) [facility] Start: 10-07-2023 Influenza vaccination Influenza Vaccine (Season Ended) [facility] Start: 09-28-2023 Shingles (RZV) Vaccine (2 of 2) Shingles (RZV) Vaccine (2 of 2) [facility] Start: 09-14-2023 End: 09-14-2023 Patient encounter procedure 09/14/2023 4:20 PM EDT Office Visit [facility] [address] [place] [id number] Anton Walton MD [address] [place] [address] [facility] Start: 02-05-2023 Behavioral Health Screening Behavioral Health Screening [facility] Start: 10-06-2022 COVID-19 Vaccine ( season) COVID-19 Vaccine ( season) [facility] Start: 10-06-2022 Influenza vaccination Influenza Vaccine (#1) [facility] Start: 06-08-2022 Screening for malignant neoplasm of colon [facility] Start: 05-05-2022 End: 05-05-2022 Patient encounter procedure 05/05/2022 Office Visit Gerontology Anton Walton MD [address] [place] [address] [facility] Start: 03-28-2022 End: 06-25-2022 Hepatic function panel HEPATIC FUNCTION PANEL Lab Routine Hepatic steatosis Expected: 03/28/2022, Expires: 06/25/2022 [employer] Work Phone: Comment on above: Expected: 03/28/2022, Expires: Start: 12-19-2021 End: 12-19-2021 Patient encounter procedure 12/19/2021 Appointment Gastroenterology [facility] Start: 12-16-2021 Prostate specific antigen measurement Prostate Cancer Screening (shared decision making) [facility] Start: 11-30-2021 End: 01-29-2022 Assay of calprotectin fecal CALPROTECTIN, STOOL Lab Routine Loose stools Expected: 11/30/2021 (Approximate), Expires: 01/29/2022 [facility] Comment on above: Expected: 11/30/2021 (Approximate), Expi res: 01/29/2022 Start: 11-30-2021 End: 01-29-2022 Cul bact stool aerobic isol salmonella&shigell STOOL CULTURE Microbiology Routine Loose stools Expected: 11/30/2021 (Approximate), Expires: 01/29/2022 [facility] Comment on above: Expected: 11/30/2021 (Approximate), Expi res: 01/29/2022 Start: 11-30-2021 End: 01-29-2022 Elastase pancreatic fecal qual/semi-isatu PANCREATIC ELASTASE, STOOL Lab Routine Loose stools Expected: 11/30/2021 (Approximate), Expires: 01/29/2022 [employer] Work Phone: Comment on above: Expected: 11/30/2021 (Approximate), Expi res: 01/29/2022 Start: 11-30-2021 End: 01-29-2022 Fat stain feces urine/respir secretions FECAL FAT, QUALITATIVE (CRIT * Lab Routine Loose stools Expected: 11/30/2021 (Approximate), Expires: 01/29/2022 [facility] Comment on above: Expected: 11/30/2021 (Approximate), Expi res: 01/29/2022 Start: 11-30-2021 End: 01-29-2022 Iaad ia giardia GIARDIA/CRYPTO EIA Microbiology Routine Loose stools Expected: 11/30/2021 (Approximate), Expires: 01/29/2022 [facility] Comment on above: Expected: 11/30/2021 (Approximate), Expi res: 01/29/2022 Start: 11-30-2021 End: 11-30-2021 Patient encounter procedure 11/30/2021 Office Visit Gastroenterology Kimberly Su APRN-CNP [address] [place] [address] [facility] Start: 11-05-2021 Influenza vaccination Influenza Vaccine (#1) [facility] Start: 11-01-2021 End: 11-01-2021 Patient encounter procedure 11/01/2021 Office Visit Gerontology Anton Walton MD [address] [place] [address] [facility] Start: 09-05-2021 End: 12-29-2021 Basic metabolic 2000 panel - Serum or Plasma BASIC METABOLIC PANEL Lab Routine Rash of back Gastroesophageal reflux disease, unspecified whether esophagitis present Duodenitis Hyperlipidemia, unspecified hyperlipidemia type Elevated LFTs Expected: 09/05/2021, Expires: 12/29/2021 [facility] Work Phone: Comment on above: Expected: 09/05/2021, Expires: 2 Start: 09-05-2021 End: 12-29-2021 Hepatic function panel HEPATIC FUNCTION PANEL Lab Routine Rash of back Gastroesophageal reflux disease, unspecified whether esophagitis present Duodenitis Hyperlipidemia, unspecified hyperlipidemia type Elevated LFTs Expected: 09/05/2021, Expires: 12/29/2021 [facility] Comment on above: Expected: 09/05/2021, Expires: 2 Start: 09-05-2021 End: 12-29-2021 Lipid 1996 panel - Serum or Plasma FULL LIPID PROFILE Lab Routine Rash of back Gastroesophageal reflux disease, unspecified whether esophagitis present Duodenitis Hyperlipidemia, unspecified hyperlipidemia type Elevated LFTs Expected: 09/05/2021, Expires: 12/29/2021 [facility] Comment on above: Expected: 09/05/2021, Expires: 2 Start: 08-31-2021 End: 08-31-2021 Evaluation and management of inpatient 08/31/2021 Office Visit Gerontology Anton Walton MD [address] [place] [id number] [facility] Start: 06-08-2021 End: 06-08-2021 Admission to same day surgery center 06/08/2021 Surgery Gastroenterology Gen Cuevas MD [address] [place] [id number] ESOPHAGOGASTRODUODENOSCOPY AND COLONOSCOPY [facility] Comment on above: ESOPHAGOGASTRODUODENOSCOPY AND COLONOSCO PY Start: 06-08-2021 End: 06-08-2021 ESOPHAGOGASTRODUODENOSCOPY AND COLONOSCOPY ESOPHAGOGASTRODUODENOSCOPY AND COLONOSCOPY Routine scheduled Acute diverticulitis Black stool Change in bowel habits 06/08/2021 2:00 PM EDT [facility] Start: 06-08-2021 Subsequent hospital visit by physician 06/08/2021 Hospital Encounter Gastroenterology Gen Cuevas MD [address] [place] [id number] [facility] Start: 06-03-2021 End: 07-03-2021 SARS-CoV-2 (COVID-19) RNA [Presence] in Unspecified specimen by DEMETRIS with probe detection NOVEL CORONAVIRUS (COVID-19) Lab Routine Encounter for laboratory testing for severe acute respiratory syndrome coronavirus 2 (SARS-CoV-2) Expected: 06/03/2021, Expires: 07/03/2021 [facility] Work Phone: Comment on above: Expected: 06/03/2021, Expires: Start: 06-03-2021 End: 06-03-2021 Patient encounter procedure 06/03/2021 Office Visit GerontologAnton Merchant MD [address] [place] [id number] [facility] Start: 05-31-2021 End: 06-30-2021 SARS-CoV-2 (COVID-19) RNA [Presence] in Unspecified specimen by DEMETRIS with probe detection NOVEL CORONAVIRUS (COVID-19) Lab Routine Encounter for laboratory testing for severe acute respiratory syndrome coronavirus 2 (SARS-CoV-2) Expected: 05/31/2021, Expires: 06/30/2021 [facility] Work Phone: Comment on above: Expected: 05/31/2021, Expires: 2 Start: 05-30-2021 End: 06-29-2021 SARS-CoV-2 (COVID-19) RNA [Presence] in Unspecified specimen by DEMETRIS with probe detection NOVEL CORONAVIRUS (COVID-19) Lab Routine Encounter for laboratory testing for severe acute respiratory syndrome coronavirus 2 (SARS-CoV-2) Expected: 05/30/2021, Expires: 06/29/2021 [facility] Work Phone: Comment on above: Expected: 05/30/2021, Expires: Start: 05-25-2021 COVID-19 Vaccine (4 - Booster for Pfizer series) COVID-19 Vaccine (4 - Booster for Pfizer series) [facility] Start: 05-16-2021 End: 05-16-2021 Patient encounter procedure 05/16/2021 Appointment Radiology [facility] Start: 05-09-2021 End: 05-09-2021 Patient encounter procedure 05/09/2021 Office Visit Presurgical Evaluation Yazan Adams, GIFT SHOP ASSISTANT-MANAGER FLIGHT [address] [facility] [place] [address] [facility] Start: 03-21-2021 COVID-19 Vaccine (4 - Booster for Pfizer series) COVID-19 Vaccine (4 - Booster for Pfizer series) [facility] Start: 2020 Hepatitis B (HBV) Vaccine (optional start 60+ years) Hepatitis B (HBV) Vaccine (optional start 60+ years) [facility] Start: 2020 RSV Vaccine (1 - 1-dose 60+ series) RSV Vaccine (1 - 1-dose 60+ series) [facility] Start: 2020 RSV vaccine (optional 60+ years) RSV vaccine (optional 60+ years) [facility] Start: 02-25-2010 Measurement of occult blood in single stool specimen [facility] Start: 02-25-2010 Shingrix Vaccine (1 of 2) Shingrix Vaccine (1 of 2) [facility] Start: 02-25-2010 Varicella-zoster vaccine (product) Shingles (RZV) Vaccine (1 of 2) [facility] Start: 02-25-2005 Screening for malignant neoplasm of colon [facility] Start: 02-25-1979 Hepatitis A (HAV) Vaccine (optional start 19+ years) Hepatitis A (HAV) Vaccine (optional start 19+ years) [facility] Start: 02-25-1978 Hepatitis C screening Hepatitis C Antibody [facility] Start: 02-25-1978 HIV screening HIV Screening [facility] Start: 02-25-1975 HIV screening HIV Test [facility] Assay of calprotectin fecal CALP ROTECTIN, STOOL Lab Routine Loose stools 12/14/2021 9:35 AM EST [facility] End: 12-19-2023 Basic metabolic 2000 panel - Serum or Plasma BASIC METABOLIC PANEL Lab Routine Gastroesophageal reflux disease, unspecified whether esophagitis present Duodenitis Hyperlipidemia, unspecified hyperlipidemia type Elevated LFTs Erectile disorder due to medical condition in male Elevated blood sugar 1 Occurrences starting 08/03/2023 until 12/19/2023 [facility] Comment on above: 1 Occurrences starting 08/03/2023 until 12/19/2023 End: 12-19-2023 CBC W Auto Differential panel - Blood COMPLETE BLOOD COUNT W/DIFF Lab Routine Gastroesophageal reflux disease, unspecified whether esophagitis present Duodenitis Hyperlipidemia, unspecified hyperlipidemia type Elevated LFTs Erectile disorder due to medical condition in male Elevated blood sugar 1 Occurrences starting 08/03/2023 until 12/19/2023 [facility] Comment on above: 1 Occurrences starting 08/03/2023 until 12/19/2023 Cul bact stool aerob ic isol salmonella&shigell STOOL CULTURE Microbiology Routine Loose stools 12/14/2021 9:35 AM EST [facility] End: 12-19-2023 Diabetes tracking panel HEMOGLOBIN A1C Lab Routine Gastroesophageal reflux disease, unspecified whether esophagitis present Duodenitis Hyperlipidemia, unspecified hyperlipidemia type Elevated LFTs Erectile disorder due to medical condition in male Elevated blood sugar 1 Occurrences starting 08/03/2023 until 12/19/2023 [facility] Comment on above: 1 Occurrences starting 08/03/2023 until 12/19/2023 Elastase pancreatic fecal qual/semi-isatu PANCREATIC ELASTASE, STOOL Lab Routine Loose stools 12/14/2021 9:35 AM EST [facility] Fat stain feces urin e/respir secretions FECAL FAT, QUALITATIVE (CRIT * Lab Routine Loose stools 12/14/2021 9:35 AM EST [facility] End: 12-19-2023 Hepatic function panel HEPATIC FUNCTION PANEL Lab Routine Gastroesophageal reflux disease, unspecified whether esophagitis present Duodenitis Hyperlipidemia, unspecified hyperlipidemia type Elevated LFTs Erectile disorder due to medical condition in male Elevated blood sugar 1 Occurrences starting 08/03/2023 until 12/19/2023 [facility] [employer] [facility] Work Phone: Comment on above: 1 Occurrences starting 08/03/2023 until 12/19/2023 Iaad ia giardia GIARDIA/CRYPTO E IA Microbiology Routine Loose stools [facility]: 12-19-2023 Lipid 1996 panel - Serum or Plasma FULL LIPID PROFILE Lab Routine Gastroesophageal reflux disease, unspecified whether esophagitis present Duodenitis Hyperlipidemia, unspecified hyperlipidemia type Elevated LFTs Erectile disorder due to medical condition in male Elevated blood sugar 1 Occurrences starting 08/03/2023 until 12/19/2023 [facility] Comment on above: 1 Occurrences starting 08/03/2023 until 12/19/2023 Immunizations Immunization Date Immunization Notes Care Provider Fa [facility] 08-03-2023 zoster vaccine recombinant Anton Walton MD Work Phone: [facility] 12-16-2021 influenza, injectabl e, quadrivalent, preservative free [facility] 12-16-2021 influenza virus vaccine, unspecified formulation Tadeo Placeway DO Work Phone: [facility] 12-12-2021 Pfizer Bivalent Booster (12+ YRS) SARS-COV-2 (COVID-19) vaccine, mRNA, spike protein, LNP, pres. free, 30 mcg/0.3mL dose, myranda-sucrose (KQA=656) Kimberly DAVISMANAGER FLIGHT Work Phone: [facility] 01-24-2021 Pfizer SARS-COV-2 (COVID-19) vaccine, age 12+ yrs, mRNA, spike protein, LNP, preservative free, 30 mcg/0.3mL dose (TBB=[id number]) Tadeo Placeway DO Work Phone: [facility] 12-15-2020 influenza, injectabl e, quadrivalent, preservative free Tadeo Placeway DO Work Phone: [facility] 12-15-2020 influenza virus vaccine, unspecified formulation Anton Walton MD Work Phone: [facility] 05-26-2020 Pfizer SARS-COV-2 (COVID-19) vaccine, age 12+ yrs, mRNA, spike protein, LNP, preservative free, 30 mcg/0.3mL dose ([id number]=575) Tadeo Placeway DO Work Phone: [facility] Work Phone: 05-05-2020 Pfizer SARS-COV-2 (COVID-19) vaccine, age 12+ yrs, mRNA, spike protein, LNP, preservative free, 30 mcg/0.3mL dose (XVZ=350) Tadeo Placeway DO Work Phone: [facility] Work Phone: 12-14-2016 influenza, injectabl e, quadrivalent, contains preservative Tadeo Placeway DO Work Phone: [facility] 03-10-2016 tetanus toxoid, reduced diphtheria toxoid, and acellular pertussis vaccine, adsorbed Tadeo Placeway DO Work Phone: [facility] Payers Date Payer Category Payer Unknown [id number] 2016 Unknown [id number] 1960 Unknown [id number] Social History Date Type Detail Facility Start: 04-19-2020 End: 11-01-2021 Tobacco smoking status NHIS Never smoked tobacco [facility] Start: 04-19-2020 End: 11-01-2021 Tobacco use and exposure Smokeless tobacco non-user [facility] Start: 03-18-2021 End: 07-19-2021 History SDOH Financial 4 [facility] Start: 03-18-2021 End: 07-19-2021 History SDOH Food Worry 1 [facility] Start: 03-18-2021 End: 07-19-2021 History SDOH Transport Med 2 [facility] Start: 1960 Sex Assigned [facility] Exposure to SARS-CoV -2 (event) Not sure [facility] Start: 05-09-2021 End: 08-03-2023 Alcohol intake Current drinker of alcohol (finding) [facility] Start: 05-09-2021 History SDOH Alcohol Comment occ [facility] Start: 07-19-2021 History SDOH Social Connections Phone 5 [facility] Start: 07-19-2021 History SDOH Stress 3 [facility] Start: 07-19-2021 [facility] Start: 04-28-2020 Gender identity Identifies as male gender (finding) [facility] Start: 04-28-2020 Sexual orientation Heterosexual (fin ding) [facility] Start: 07-19-2021 End: 08-02-2023 History of Social function [facility] Start: 07-19-2021 End: 08-02-2023 Humiliation, Afraid, Rape, and Kick questionnaire [HARK] [facility] Within the last year , have you been afraid of your partner or ex-partner? No [facility] Are you now , , , , never or living with a partner? [facility] How hard is it for y ou to pay for the very basics like food, housing, medical care, and heating Not hard at all [facility] Do you feel stress - tense, restless, nervous, or anxious, or unable to sleep at night because your mind is troubled all the time - these days [OSQ] To some extent [facility] (I/We) worried wheth er (my/our) food would run out before (I/we) got money to buy more. Never true [facility] Start: 02-16-2016 Alcohol Comment socially [facility] Start: 1960 Sex Assigned At Not on file [facility] How hard is it for y ou to pay for the very basics like food, housing, medical care, and heating Not very hard [facility] Clinical Notes 05-09-2021 to 08-31-2023 Addendum Note - Anton Walton MD - 08/31/2023 3:01 PM EDTAddendum Note - Anton Walton MD - 08/31/2023 3:01 PM EDTPatient InstructionsPatient InstructionsPatient Instructions Note Date & Type Note Facility 08-31-2023 Note Addended by: ANTON WALTON on: 08/31/2023 03:01 PM Modules accepted: Level of Service [facility] 08-31-2023 Miscellaneous Notes Addended by: ANTON WALTON on: 08/31/2023 03:01 PM Modules accepted: Level of Service documented in this encounter [facility] 08-03-2023 Instructions Anton Walton MD - 08/03/2023 1:59 PM EDT RSV vaccine recommended from pharmacy. documented in this encounter [facility] 08-03-2023 Instructions Anton Walton MD - 08/03/2023 1:59 PM EDT RSV vaccine recommended from pharmacy. documented in this encounter [facility] 08-03-2023 History of Present illness Narrative Images from the original note were not included. Follow up. History of Present Illness: 63 year old male seen and assessed. Right sided sciatica , lumbar disorder, sub acute condition much better. Fh colon cancer, next colonoscopy due in 2021. Monitor spot on chest round left chest small area. Intermittent rash on buttocks, folliculitis? Has been to [place] for honeymoon. Likes to be on boat in summer. Alcohol summer some times. Env allergies more mucus these days. 1 daughter , planning to be in [place] soon. Dad in 2020. Trouble maintaining erection, has used cialis in the past done well, in the past. dating a girl. 06/03/21 63 year old male seen and assessed. hld borderline glucose. pepcid taking helping stomach. In afternoon at times feels little unsteady, and is intermittent. Was on tums , and mild elevation in calcium, has stopped since in er few weeks ago. Recent scan show small polyp, in gastric antrum first portion of duodenum? Hepatic steatosis Colonoscopy and endoscopy happening soon. 07/22/21 63 year old male seen and assessed. stomach symptoms ongoing Gerd. Taking lipitor. counseled on covid booster. daughter teaching israeli in [place]. 11/01/21 63 year old male seen and assessed. Feels better but abd still bloated after eating. Had covid in August 2021. Moving bowels once daily. Will be getting blood work today. 4 drinks a week alcohol. 08/03/23 63 year old male seen and assessed. Post nasal drip concerns current meds not helping. Bloating improved after decreased fruits intake. Bug spray with d using. Daughter back , doing masters now. In [employer]. 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 Biking, walking. Walking 6 miles, right toes cause problems but wants to wait at this time. Pepcid as needed. Wagu beef,/annalise, [place], beef delicious . Lipids (last 3 years, up to 8 values) 11/01/2021 06/09/2021 12/16/2020 4:12 PM 8:02 AM 7:55 AM Chol- esterol 140 232 187 TG 221 139 262 HDL 33 32 28 LDL 78 182 125 Chol / HDL 4.24 7.25 6.68 LDL / HDL 2.36 5.69 4.46 Non HDL 107 200 159 The 10-year ASCVD risk score (Antony RAZA, et al., 2019) is: 9.8% Lab Results Component Value Date HBA1C 5.6 12/17/2020 Orders placed or performed during the hospital encounter of 06/08/21 COLONOSCOPY, FLEXIBLE; W/REMOVAL, LESION, SNARE COLONOSCOPY, FLEXIBLE; W/REMOVAL, LESION, SNARE COLONOSCOPY, FLEXIBLE, PROXIMAL TO SPLENIC FLEXURE; DX, W/WO SPECIMENS/COLON DECOMP (SEP PROC) COLONOSCOPY, FLEXIBLE, PROXIMAL TO SPLENIC FLEXURE; DX, W/WO SPECIMENS/COLON DECOMP (SEP PROC) The 10-year ASCVD risk score (Antony RAZA, et al., 2019) is: 9.8% Orders placed or performed during the hospital encounter of 06/08/21 COLONOSCOPY, FLEXIBLE; W/REMOVAL, LESION, SNARE COLONOSCOPY, FLEXIBLE; W/REMOVAL, LESION, SNARE COLONOSCOPY, FLEXIBLE, PROXIMAL TO SPLENIC FLEXURE; DX, W/WO SPECIMENS/COLON DECOMP (SEP PROC) COLONOSCOPY, FLEXIBLE, PROXIMAL TO SPLENIC FLEXURE; DX, W/WO SPECIMENS/COLON DECOMP (SEP PROC) Vitals: 08/03/23 1325 BP: 121/66 Pulse: Resp: Temp: SpO2: Past Medical History: Lumbar disorder Sciatica Past Surgical History: Left hand 5th finger surgery had surgery Social History: Social History Socioeconomic History Marital status: Highest education level: 12th grade Tobacco Use Smoking status: Never Smokeless tobacco: Never Substance and Sexual Activity Alcohol use: Yes Comment: occ Drug use: Not Currently Social Determinants of Health Financial Resource Strain: Low Risk (08/02/2023) Overall Financial Resource Strain (CARDIA) Difficulty of Paying Living Expenses: Not very hard Food Insecurity: No Food Insecurity (08/02/2023) Hunger Vital Sign Worried About Running Out of Food in the Last Year: Never true Ran Out of Food in the Last Year: Never true Transportation Needs: No Transportation Needs (08/02/2023) PRAPARE - Transportation Lack of Transportation (Medical): No Lack of Transportation (Non-Medical): No Physical Activity: Sufficiently Active (08/02/2023) Exercise Vital Sign Days of Exercise per Week: 6 days Minutes of Exercise per Session: 60 min Stress: Stress Concern Present (08/02/2023) [place] [employer] - Occupational Stress Questionnaire Feeling of Stress : To some extent Social Connections: Socially Isolated (08/02/2023) Social Connection and Isolation Panel [NHANES] Frequency of Communication with Friends and Family: Three times a week Frequency of Social Gatherings with Friends and Family: Twice a week Attends Hindu Services: Never Active Member of Clubs or Organizations: No Attends Club or Organization Meetings: Never Marital Status: Intimate Partner Violence: Not At Risk (08/02/2023) Humiliation, Afraid, Rape, and Kick questionnaire Fear of Current or Ex-Partner: No Emotionally Abused: No Physically Abused: No Sexually Abused: No Family History: Mom and dad 2018, 2020. Mom of colon cancer 83 dad of kidney failure. 85 Allergies: Patient has no known allergies. BP 121/66 Pulse 64 Temp 98.7 F (37.1 C) (Temporal) Resp 18 Ht 6' (1.829 m) Wt 207 lb 1.6 oz (93.9 kg) SpO2 99% BMI 28.09 kg/m Review Of Systems: Skin: neg Eyes: neg Ears/Nose/Throat: negative Respiratory: negative symptoms (no cough, hemoptysis, SOB, BUNCH, PND, wheezing) Cardiovascular: negative symptoms (No CP/Pressure/Tightness, palpitations, orthopnea, PND, SOB, BUNCH, edema, PARKS or vision change) Gastrointestinal: abd bloating otherwise abd ok. After eating Genitourinary: difficult in maintaining erection. no urinary symptoms Neurologic: negative symptoms (no syncope, seizures, weakness, gait problems, numbness, burning pain, tremors, or memory loss) negative (no arthritic pain, no joint swelling, no muscle weakness) Psychiatric: negative (no sleep disturbance, anxiety, memory loss, disorientation, inattention, feelings of depression) Hematologic/Lymphatic/Immunologi c: negative (no anemia, bleeding, bruising) Endocrine: negative review of symptoms PHYSICAL EXAMINATION: Vital signs reviewed General appearance: alert, pleasant, mild distress, cooperative, oriented to time, place and person Head: Normocephalic. No masses, lesions, tenderness or abnormalities Eyes: negative Ears: negative Nose/Sinuses: Nares normal. Septum midline. Mucosa normal. No drainage or sinus tenderness. Oropharynx: Lips, mucosa, and tongue normal. Teeth and gums normal. Oropharynx normal Neck: Neck supple; normal JVP; carotids normal pulse without bruits; thyroid normal. Back: Back symmetric, no curvature. ROM normal. No CVA tenderness. Lungs: Good breath sounds; no wheezes, rales or rhonchi. Heart: Regular rate and rhythm. Normal S1 and S2. No murmurs, clicks or gallops. Abdomen: Abdomen soft, non-tender. BS normal. No masses, No organomegaly Extremities: Extremities normal. No deformities, edema, or skin discoloration Neuro: Intact and symmetric. A/P: (E78.5) Hyperlipidemia, unspecified hyperlipidemia type (primary encounter diagnosis) Plan: ZOSTER (SHINGLES) VACCINE (RZV), RECOMBINANT, SUB-UNIT, ADJUVANTED, FOR INTRAMUSCULAR USE, triamcinolone 0.1 % cream, tadalafil (CIALIS) 10 MG tablet, HEPATIC FUNCTION PANEL, FULL LIPID PROFILE, BASIC METABOLIC PANEL, COMPLETE BLOOD COUNT W/DIFF, HEMOGLOBIN A1C (K21.9) Gastroesophageal reflux disease, unspecified whether esophagitis present Plan: ZOSTER (SHINGLES) VACCINE (RZV), RECOMBINANT, SUB-UNIT, ADJUVANTED, FOR INTRAMUSCULAR USE, triamcinolone 0.1 % cream, tadalafil (CIALIS) 10 MG tablet, HEPATIC FUNCTION PANEL, FULL LIPID PROFILE, BASIC METABOLIC PANEL, COMPLETE BLOOD COUNT W/DIFF, HEMOGLOBIN A1C (K29.80) Duodenitis Plan: ZOSTER (SHINGLES) VACCINE (RZV), RECOMBINANT, SUB-UNIT, ADJUVANTED, FOR INTRAMUSCULAR USE, triamcinolone 0.1 % cream, tadalafil (CIALIS) 10 MG tablet, HEPATIC FUNCTION PANEL, FULL LIPID PROFILE, BASIC METABOLIC PANEL, COMPLETE BLOOD COUNT W/DIFF, HEMOGLOBIN A1C (R79.89) Elevated LFTs Plan: ZOSTER (SHINGLES) VACCINE (RZV), RECOMBINANT, SUB-UNIT, ADJUVANTED, FOR INTRAMUSCULAR USE, triamcinolone 0.1 % cream, tadalafil (CIALIS) 10 MG tablet, HEPATIC FUNCTION PANEL, FULL LIPID PROFILE, BASIC METABOLIC PANEL, COMPLETE BLOOD COUNT W/DIFF, HEMOGLOBIN A1C (N52.1) Erectile disorder due to medical condition in male Plan: ZOSTER (SHINGLES) VACCINE (RZV), RECOMBINANT, SUB-UNIT, ADJUVANTED, FOR INTRAMUSCULAR USE, triamcinolone 0.1 % cream, tadalafil (CIALIS) 10 MG tablet, HEPATIC FUNCTION PANEL, FULL LIPID PROFILE, BASIC METABOLIC PANEL, COMPLETE BLOOD COUNT W/DIFF, HEMOGLOBIN A1C (R73.9) Elevated blood sugar Plan: ZOSTER (SHINGLES) VACCINE (RZV), RECOMBINANT, SUB-UNIT, ADJUVANTED, FOR INTRAMUSCULAR USE, triamcinolone 0.1 % cream, tadalafil (CIALIS) 10 MG tablet, HEPATIC FUNCTION PANEL, FULL LIPID PROFILE, BASIC METABOLIC PANEL, COMPLETE BLOOD COUNT W/DIFF, HEMOGLOBIN A1C, Efinaconazole (Jublia) 10 % SOLN Due to FH will need capsule endoscopy in 2026. Anton Walton MD Patient was identified by name and date of . Dolly Mcdonaldtient was identified by name and date of . Patient at risk for falls:No Falls Risk protocol implemented: No Shingles vaccine was given. VIS sheet was given. documented in this encounter [facility] 08-03-2023 History of Present illness Narrative Images from the original note were not included. Follow up. History of Present Illness: 63 year old male seen and assessed. Right sided sciatica , lumbar disorder, sub acute condition much better. Fh colon cancer, next colonoscopy due in 2021. Monitor spot on chest round left chest small area. Intermittent rash on buttocks, folliculitis? Has been to [place] for honeymoon. Likes to be on boat in summer. Alcohol summer some times. Env allergies more mucus these days. 1 daughter , planning to be in [place] soon. Dad in 2020. Trouble maintaining erection, has used cialis in the past done well, in the past. dating a girl. 06/03/21 63 year old male seen and assessed. hld borderline glucose. pepcid taking helping stomach. In afternoon at times feels little unsteady, and is intermittent. Was on tums , and mild elevation in calcium, has stopped since in er few weeks ago. Recent scan show small polyp, in gastric antrum first portion of duodenum? Hepatic steatosis Colonoscopy and endoscopy happening soon. 07/22/21 63 year old male seen and assessed. stomach symptoms ongoing Gerd. Taking lipitor. counseled on covid booster. daughter teaching israeli in [place]. 11/01/21 63 year old male seen and assessed. Feels better but abd still bloated after eating. Had covid in August 2021. Moving bowels once daily. Will be getting blood work today. 4 drinks a week alcohol. 08/03/23 63 year old male seen and assessed. Post nasal drip concerns current meds not helping. Bloating improved after decreased fruits intake. Bug spray with d using. Daughter back , doing masters now. In [employer]. 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 Biking, walking. Walking 6 miles, right toes cause problems but wants to wait at this time. Pepcid as needed. [employer] beef,/[employer], [employer], beef delicious . Lipids (last 3 years, up to 8 values) 11/01/2021 06/09/2021 12/16/2020 4:12 PM 8:02 AM 7:55 AM Chol- esterol 140 232 187 TG 221 139 262 HDL 33 32 28 LDL 78 182 125 Chol / HDL 4.24 7.25 6.68 LDL / HDL 2.36 5.69 4.46 Non HDL 107 200 159 The 10-year ASCVD risk score (Antony RAZA, et al., 2019) is: 9.8% Lab Results Component Value Date HBA1C 5.6 12/17/2020 Orders placed or performed during the hospital encounter of 06/08/21 COLONOSCOPY, FLEXIBLE; W/REMOVAL, LESION, SNARE COLONOSCOPY, FLEXIBLE; W/REMOVAL, LESION, SNARE COLONOSCOPY, FLEXIBLE, PROXIMAL TO SPLENIC FLEXURE; DX, W/WO SPECIMENS/COLON DECOMP (SEP PROC) COLONOSCOPY, FLEXIBLE, PROXIMAL TO SPLENIC FLEXURE; DX, W/WO SPECIMENS/COLON DECOMP (SEP PROC) The 10-year ASCVD risk score (Antony RAZA, et al., 2019) is: 9.8% Orders placed or performed during the hospital encounter of 06/08/21 COLONOSCOPY, FLEXIBLE; W/REMOVAL, LESION, SNARE COLONOSCOPY, FLEXIBLE; W/REMOVAL, LESION, SNARE COLONOSCOPY, FLEXIBLE, PROXIMAL TO SPLENIC FLEXURE; DX, W/WO SPECIMENS/COLON DECOMP (SEP PROC) COLONOSCOPY, FLEXIBLE, PROXIMAL TO SPLENIC FLEXURE; DX, W/WO SPECIMENS/COLON DECOMP (SEP PROC) Vitals: 08/03/23 1325 BP: 121/66 Pulse: Resp: Temp: SpO2: Past Medical History: Lumbar disorder Sciatica Past Surgical History: Left hand 5th finger surgery had surgery Social History: Social History Socioeconomic History Marital status: Highest education level: 12th grade Tobacco Use Smoking status: Never Smokeless tobacco: Never Substance and Sexual Activity Alcohol use: Yes Comment: occ Drug use: Not Currently Social Determinants of Health Financial Resource Strain: Low Risk (08/02/2023) Overall Financial Resource Strain (CARDIA) Difficulty of Paying Living Expenses: Not very hard Food Insecurity: No Food Insecurity (08/02/2023) Hunger Vital Sign Worried About Running Out of Food in the Last Year: Never true Ran Out of Food in the Last Year: Never true Transportation Needs: No Transportation Needs (08/02/2023) PRAPARE - Transportation Lack of Transportation (Medical): No Lack of Transportation (Non-Medical): No Physical Activity: Sufficiently Active (08/02/2023) Exercise Vital Sign Days of Exercise per Week: 6 days Minutes of Exercise per Session: 60 min Stress: Stress Concern Present (08/02/2023) [employer] [place] [employer] - Occupational Stress Questionnaire Feeling of Stress : To some extent Social Connections: Socially Isolated (08/02/2023) Social Connection and Isolation Panel [NHANES] Frequency of Communication with Friends and Family: Three times a week Frequency of Social Gatherings with Friends and Family: Twice a week Attends Hindu Services: Never Active Member of Clubs or Organizations: No Attends Club or Organization Meetings: Never Marital Status: Intimate Partner Violence: Not At Risk (08/02/2023) Humiliation, Afraid, Rape, and Kick questionnaire Fear of Current or Ex-Partner: No Emotionally Abused: No Physically Abused: No Sexually Abused: No Family History: Mom and dad 2020. Mom of colon cancer 83 dad of kidney failure. 85 Allergies: Patient has no known allergies. BP 121/66 Pulse 64 Temp 98.7 F (37.1 C) (Temporal) Resp 18 Ht 6' (1.829 m) Wt 207 lb 1.6 oz (93.9 kg) SpO2 99% BMI 28.09 kg/m Review Of Systems: Skin: neg Eyes: neg Ears/Nose/Throat: negative Respiratory: negative symptoms (no cough, hemoptysis, SOB, BUNCH, PND, wheezing) Cardiovascular: negative symptoms (No CP/Pressure/Tightness, palpitations, orthopnea, PND, SOB, BUNCH, edema, PARKS or vision change) Gastrointestinal: abd bloating otherwise abd ok. After eating Genitourinary: difficult in maintaining erection. no urinary symptoms Neurologic: negative symptoms (no syncope, seizures, weakness, gait problems, numbness, burning pain, tremors, or memory loss) negative (no arthritic pain, no joint swelling, no muscle weakness) Psychiatric: negative (no sleep disturbance, anxiety, memory loss, disorientation, inattention, feelings of depression) Hematologic/Lymphatic/Immunologi c: negative (no anemia, bleeding, bruising) Endocrine: negative review of symptoms PHYSICAL EXAMINATION: Vital signs reviewed General appearance: alert, pleasant, mild distress, cooperative, oriented to time, place and person Head: Normocephalic. No masses, lesions, tenderness or abnormalities Eyes: negative Ears: negative Nose/Sinuses: Nares normal. Septum midline. Mucosa normal. No drainage or sinus tenderness. Oropharynx: Lips, mucosa, and tongue normal. Teeth and gums normal. Oropharynx normal Neck: Neck supple; normal JVP; carotids normal pulse without bruits; thyroid normal. Back: Back symmetric, no curvature. ROM normal. No CVA tenderness. Lungs: Good breath sounds; no wheezes, rales or rhonchi. Heart: Regular rate and rhythm. Normal S1 and S2. No murmurs, clicks or gallops. Abdomen: Abdomen soft, non-tender. BS normal. No masses, No organomegaly Extremities: Extremities normal. No deformities, edema, or skin discoloration Neuro: Intact and symmetric. A/P: (E78.5) Hyperlipidemia, unspecified hyperlipidemia type (primary encounter diagnosis) Plan: ZOSTER (SHINGLES) VACCINE (RZV), RECOMBINANT, SUB-UNIT, ADJUVANTED, FOR INTRAMUSCULAR USE, triamcinolone 0.1 % cream, tadalafil (CIALIS) 10 MG tablet, HEPATIC FUNCTION PANEL, FULL LIPID PROFILE, BASIC METABOLIC PANEL, COMPLETE BLOOD COUNT W/DIFF, HEMOGLOBIN A1C (K21.9) Gastroesophageal reflux disease, unspecified whether esophagitis present Plan: ZOSTER (SHINGLES) VACCINE (RZV), RECOMBINANT, SUB-UNIT, ADJUVANTED, FOR INTRAMUSCULAR USE, triamcinolone 0.1 % cream, tadalafil (CIALIS) 10 MG tablet, HEPATIC FUNCTION PANEL, FULL LIPID PROFILE, BASIC METABOLIC PANEL, COMPLETE BLOOD COUNT W/DIFF, HEMOGLOBIN A1C (K29.80) Duodenitis Plan: ZOSTER (SHINGLES) VACCINE (RZV), RECOMBINANT, SUB-UNIT, ADJUVANTED, FOR INTRAMUSCULAR USE, triamcinolone 0.1 % cream, tadalafil (CIALIS) 10 MG tablet, HEPATIC FUNCTION PANEL, FULL LIPID PROFILE, BASIC METABOLIC PANEL, COMPLETE BLOOD COUNT W/DIFF, HEMOGLOBIN A1C (R79.89) Elevated LFTs Plan: ZOSTER (SHINGLES) VACCINE (RZV), RECOMBINANT, SUB-UNIT, ADJUVANTED, FOR INTRAMUSCULAR USE, triamcinolone 0.1 % cream, tadalafil (CIALIS) 10 MG tablet, HEPATIC FUNCTION PANEL, FULL LIPID PROFILE, BASIC METABOLIC PANEL, COMPLETE BLOOD COUNT W/DIFF, HEMOGLOBIN A1C (N52.1) Erectile disorder due to medical condition in male Plan: ZOSTER (SHINGLES) VACCINE (RZV), RECOMBINANT, SUB-UNIT, ADJUVANTED, FOR INTRAMUSCULAR USE, triamcinolone 0.1 % cream, tadalafil (CIALIS) 10 MG tablet, HEPATIC FUNCTION PANEL, FULL LIPID PROFILE, BASIC METABOLIC PANEL, COMPLETE BLOOD COUNT W/DIFF, HEMOGLOBIN A1C (R73.9) Elevated blood sugar Plan: ZOSTER (SHINGLES) VACCINE (RZV), RECOMBINANT, SUB-UNIT, ADJUVANTED, FOR INTRAMUSCULAR USE, triamcinolone 0.1 % cream, tadalafil (CIALIS) 10 MG tablet, HEPATIC FUNCTION PANEL, FULL LIPID PROFILE, BASIC METABOLIC PANEL, COMPLETE BLOOD COUNT W/DIFF, HEMOGLOBIN A1C, Efinaconazole (Jublia) 10 % SOLN Due to FH will need capsule endoscopy in 2026. Anton Walton MD Patient was identified by name and date of . Dolly YamiletNicakristinent was identified by name and date of . Patient at risk for falls:No Falls Risk protocol implemented: No Shingles vaccine was given. VIS sheet was given. documented in this encounter [facility] 06-20-2023 Note HNO ID: [id number] Author: KRYSTA HYATT APRN.MANAGER FLIGHT Service: ? Author Type: Nurse Practitioner Type: Progress Notes Filed: 06/20/2023 14:31 Note Text: This note was created using [employer]OT[employer]. Subjective Sergei Soto is a 63 year old male. Patient presents with concerns for sinus pressure and thick nasal mucous x 2 weeks. Patient reports an initial iprovement of symptoms before a decline the last few days. Patient takes Claritin with little impact. Denies any fever or chills. The history is provided by the patient. No senior controls technician was used. Sinus Problem This is a new problem. The current episode started 1 to 4 weeks ago. The problem occurs constantly. The problem has been unchanged. Associated symptoms include congestion, coughing and fatigue. Pertinent negatives include no chest pain, chills, fever, headaches or nausea. Review of Systems Constitutional: Positive for fatigue. Negative for chills and fever. HENT: Positive for congestion, sinus pressure and sinus pain. Eyes: Negative. Respiratory: Positive for cough. Negative for shortness of breath. Cardiovascular: Negative for chest pain. Gastrointestinal: Negative for nausea. Genitourinary: Negative for dysuria. Musculoskeletal: Negative. Neurological: Negative for dizziness and headaches. All other systems reviewed and are negative. Objective BP 133/80 (BP Site: Left Arm, BP Position: Sitting, BP Cuff Size: Regular Adult) Pulse 72 Temp 36.7 ?C (98 ?F) (Temporal) Resp 16 Wt 93.8 kg (206 lb 12.7 oz) SpO2 98% BMI 28.05 kg/m? Physical Exam Vitals and nursing note reviewed. HENT: Head: Normocephalic. Right Ear: Tympanic membrane is injected. Left Ear: Tympanic membrane is injected. Nose: Congestion present. Right Turbinates: Enlarged. Left Turbinates: Enlarged. Mouth/Throat: Mouth: Mucous membranes are moist. Pharynx: Oropharynx is clear. Eyes: Pupils: Pupils are equal, round, and reactive to light. Cardiovascular: Rate and Rhythm: Normal rate and regular rhythm. Heart sounds: Normal heart sounds. Pulmonary: Effort: Pulmonary effort is normal. Breath sounds: Normal breath sounds. Musculoskeletal: Cervical back: Neck supple. No tenderness. Skin: General: Skin is warm and dry. Neurological: Mental Status: He is alert and oriented to person, place, and time. Assessment and Plan ASSESSMENT/PLAN: 1. Seasonal allergic rhinitis, unspecified trigger - ICD9: 477.9, ICD10: J30.2 - ~ 2 weeks of sinus pressure and thick nasal mucous - Recent eval by PCP without complaints - Physical exam notable for enlarged nasal turbinates and bilateral tympanic injection. Lungs clear, posterior pharynx without erythema - Denies fever/chills - Plan for targeted symptom management with escalation of antihistamine, addition of nasal steroid and Medrol dose pack - Discussed supportive care treatment with fluids, rest and analgesia. - The patient may also use OTC decongestants prn, OTC cough and cold meds as needed, and warm salt water gargles, throat lozenges and/or OTC throat spray as needed. - The patient should follow up in one week if symptoms persist or worsen - Call back for increased temperature, symptoms of dehydration and/or still sick in one week - CETIRIZINE 10 MG TABLET - METHYLPREDNISOLONE 4 MG TABLETS IN A DOSE PACK - FLUTICASONE PROPIONATE 50 MCG/ACTUATION NASAL SPRAY,SUSPENSION Krysta Hyatt APRN.[facility] 06-20-2023 History of Present illness Narrative This note was created using [employer]rating[employer]. Subjective Sergei Soto is a 63 year old male. Patient presents with concerns for sinus pressure and thick nasal mucous x 2 weeks. Patient reports an initial iprovement of symptoms before a decline the last few days. Patient takes Claritin with little impact. Denies any fever or chills. The history is provided by the patient. No senior controls technician was used. Sinus Problem This is a new problem. The current episode started 1 to 4 weeks ago. The problem occurs constantly. The problem has been unchanged. Associated symptoms include congestion, coughing and fatigue. Pertinent negatives include no chest pain, chills, fever, headaches or nausea. Review of Systems Constitutional: Positive for fatigue. Negative for chills and fever. HENT: Positive for congestion, sinus pressure and sinus pain. Eyes: Negative. Respiratory: Positive for cough. Negative for shortness of breath. Cardiovascular: Negative for chest pain. Gastrointestinal: Negative for nausea. Genitourinary: Negative for dysuria. Musculoskeletal: Negative. Neurological: Negative for dizziness and headaches. All other systems reviewed and are negative. Objective BP 133/80 (BP Site: Left Arm, BP Position: Sitting, BP Cuff Size: Regular Adult) Pulse 72 Temp 36.7 C (98 F) (Temporal) Resp 16 Wt 93.8 kg (206 lb 12.7 oz) SpO2 98% BMI 28.05 kg/m Physical Exam Vitals and nursing note reviewed. HENT: Head: Normocephalic. Right Ear: Tympanic membrane is injected. Left Ear: Tympanic membrane is injected. Nose: Congestion present. Right Turbinates: Enlarged. Left Turbinates: Enlarged. Mouth/Throat: Mouth: Mucous membranes are moist. Pharynx: Oropharynx is clear. Eyes: Pupils: Pupils are equal, round, and reactive to light. Cardiovascular: Rate and Rhythm: Normal rate and regular rhythm. Heart sounds: Normal heart sounds. Pulmonary: Effort: Pulmonary effort is normal. Breath sounds: Normal breath sounds. Musculoskeletal: Cervical back: Neck supple. No tenderness. Skin: General: Skin is warm and dry. Neurological: Mental Status: He is alert and oriented to person, place, and time. Assessment and Plan ASSESSMENT/PLAN: 1. Seasonal allergic rhinitis, unspecified trigger - ICD9: 477.9, ICD10: J30.2 - ~ 2 weeks of sinus pressure and thick nasal mucous - Recent eval by PCP without complaints - Physical exam notable for enlarged nasal turbinates and bilateral tympanic injection. Lungs clear, posterior pharynx without erythema - Denies fever/chills - Plan for targeted symptom management with escalation of antihistamine, addition of nasal steroid and Medrol dose pack - Discussed supportive care treatment with fluids, rest and analgesia. - The patient may also use OTC decongestants prn, OTC cough and cold meds as needed, and warm salt water gargles, throat lozenges and/or OTC throat spray as needed. - The patient should follow up in one week if symptoms persist or worsen - Call back for increased temperature, symptoms of dehydration and/or still sick in one week - CETIRIZINE 10 MG TABLET - METHYLPREDNISOLONE 4 MG TABLETS IN A DOSE PACK - FLUTICASONE PROPIONATE 50 MCG/ACTUATION NASAL SPRAY,SUSPENSION Krysta Hyatt APRN.[facility] documented in this encounter [facility] 06-20-2023 Instructions Krysta Hyatt APRN.[facility]NE - 06/20/2023 1:55 PM EDT Increase fluid intake (WATER) and REST, as much as possible Can take acetaminophen and/or ibuprofen, as directed, for pain or fever. Avoid NSAIDs (ie: ibuprofen/Advil/Aleve/motrin) with any history of ulcers or gastric surgery Use a cool-mist vaporizer or humidifier Can use over the counter cough lozenges with menthol- use as directed on the package. Encouraged use of Flonase (nasal steroid to help decrease inflammation). Remember, you must be consistent with use to allow the steroid to build-up adequately in your nasal tissue. Insert nozzle into each nostril, angle towards outside of your nose, take very small sniff . Encouraged to use nightly before going to bed. Saline nasal spray can be used for nasal congestion, as needed. Consider taking a daily antihistamine if you have a lot of drainage/runny nose, such as Claritin/Zyrtec/Xyzal/Christy, etc. Take antibiotics as prescribed - to completion- and with food. Encouraged probiotic or yogurt with live cultures (not within 1-2 hours of antibiotics) If you have high blood pressure, AVOID decongestants. If you are a diabetic, make sure you are closely monitoring your blood sugar levels as they can become unstable with illness. - Follow up with your PCP if you continue to experience symptoms, if they return shortly after treatment, or if they worsen - If symptoms are ongoing and/or recurrent, you may need to follow up with an clean room operator and/or ENT - Go to the ER if you begin to experience any severe symptoms, such as facial, eye, or cheek swelling on one side of your face, labored breathing/difficulty breathing, shortness of breath or chest pain, stiffness in neck, difficulty waking up or lethargy, severe headaches, or a rash that looks like a bruise documented in this encounter [facility] 05-28-2023 Telephone encounter Note Patient has not been seen by this Provider or Department in more than 1 year. Pharmacy has sent a Skyonic message to the patient to schedule an office visit. Thank you [facility] 05-28-2023 Miscellaneous Notes Patient has not been seen by this Provider or Department in more than 1 year. Pharmacy has sent a Skyonic message to the patient to schedule an office visit. Thank you documented in this encounter [facility] 12-19-2021 Procedure note Associated Ord er(s): LIVER ELASTOGRAPHY Images from the original note were not included. Velocity Controlled Transient Elastography (Fibroscan) Batch Records Clerk: Suzette Tamayo Attending: Tiara Blackburn APRN-CNP Patient was identified via name and . Sergei Soto presents to endoscopy suite for VCTE. Referring Provider: Self Patient Diagnosis: Hepatic steatosis [[id number]] Two Pt identifiers where confirmed. Pt procedure and orders verified verbal consent obtained. Probe used: XL Pre-procedure Checklist Presence of ascites? Yes Fasting for at least three hours? Yes Alcohol use? No History of right heart failure? No LFT's (last 3 years, up to 5 values) (Last 5 results in the past 3 years) T Prot Albumin D Bili T Bili Alk Phos ALT AST 12/16/21 0846 7.2 4.6 0.30 1.5 83 105 56 11/01/21 1612 7.3 4.6 0.20 1.2 91 71 57 06/09/21 0802 7.4 4.5 0.10 1.1 80 58 38 04/25/21 1428 7.4 4.7 0.10 0.6 87 50 29 03/17/21 0936 7.3 4.1 0.20 1.1 82 22 13 ] Platelet Date Value Ref Range Status 04/25/2021 156 150 - 400 K/uL Final 03/17/2021 162 150 - 400 K/uL Final Findings: Elastography Median kPa: 5.4 IQR/med (%): 9 Controlled Attenuation Parameter (CAP) Median (dB/m): 285 IQR : 58 Interpretation: Based on LSM of 5.4 KPa, the patient has evidence of No significant fibrosis (F0-F1) with Grade 2 steatosis. If F3 or F4 fibrosis, please formally refer patient to hepatology. Interpreting Provider: Tiara Blackburn APRN-CNP [employer] Work Phone: 12-19-2021 Procedure note Associated Ord er(s): LIVER ELASTOGRAPHY Images from the original note were not included. Velocity Controlled Transient Elastography (Fibroscan) Batch Records Clerk: Suzette Tamayo Attending: Tiara Blackburn APRN-CNP Patient was identified via name and . Sergei Soto presents to endoscopy suite for VCTE. Referring Provider: Self Patient Diagnosis: Hepatic steatosis [[id number]] Two Pt identifiers where confirmed. Pt procedure and orders verified verbal consent obtained. Probe used: XL Pre-procedure Checklist Presence of ascites? Yes Fasting for at least three hours? Yes Alcohol use? No History of right heart failure? No LFT's (last 3 years, up to 5 values) (Last 5 results in the past 3 years) T Prot Albumin D Bili T Bili Alk Phos ALT AST 12/16/21 0846 7.2 4.6 0.30 1.5 83 105 56 11/01/21 1612 7.3 4.6 0.20 1.2 91 71 57 06/09/21 0802 7.4 4.5 0.10 1.1 80 58 38 04/25/21 1428 7.4 4.7 0.10 0.6 87 50 29 03/17/21 0936 7.3 4.1 0.20 1.1 82 22 13 ] Platelet Date Value Ref Range Status 04/25/2021 156 150 - 400 K/uL Final 03/17/2021 162 150 - 400 K/uL Final Findings: Elastography Median kPa: 5.4 IQR/med (%): 9 Controlled Attenuation Parameter (CAP) Median (dB/m): 285 IQR : 58 Interpretation: Based on LSM of 5.4 KPa, the patient has evidence of No significant fibrosis (F0-F1) with Grade 2 steatosis. If F3 or F4 fibrosis, please formally refer patient to hepatology. Interpreting Provider: Tiara Blackburn APRN-CNP documented in this encounter [facility] 12-14-2021 Reason for referr al (narrative) Specialty Diagnoses / Procedures Referred By Harvinder t Referred To Contact Kimberly Su APRN-CNP [address] [place] [address] [place] [address] Referral ID Status Reason Start Date Expiration Date Visits Re quested Visits Authorized Scheduling Instructions Please arrive at least 30 minutes before your appointment time. If your appointment is scheduled for 8:00 am please arrive 1 hr early (7:00 am). Please bring the following with you the day of your procedure: 1. Insurance information and proof of residence. 2. Current medication prescription bottles 3. Responsible adult for transportation home. Wear casual, loose comfortable clothes. Leave valuables and jewelry at home. If you are having an IV sedated procedure, plan that your stay will be 2 1/2- 3 hours. Please arrive at your scheduled time. Procedures are scheduled to follow one another. In an effort to provide you the best quality care, some procedures may exceed their scheduled timeframe. Please note that if your procedure follows another there may be delays in the actual starting time. We apologize in advance for any inconvenience this may cause. If you rely on the [facility] for transportation you must schedule a morning appointment. Please inform the laboratory secretary when you are scheduling your appointment. Patients with special needs (children, language barrier, etc.) may have a family member stay with them during the recovery phase. Please follow preparation instructions for your procedure. If you have any questions please call Sunday-Sunday 7:30 am-4:30 pm . Endoscopy Hours are Sunday-Sunday 7:30 am-4:30 pm. [id number] SHOULD BE USED BY GI PHYSICIANS ONLY. If you need any of the following procedures scheduled for your patient, they must first have a GI consult. Please order a Gastroenterology Service Request ([id number]). Please select the procedure(s) you wish to have scheduled for your patient: Fibroscan Location: [address] [address] Office Hours: Sunday through Sunday 7:30a - 5:00p Appointment Information: Arrive at least 15 minutes prior to your scheduled appointment time. Bring your photo ID, insurance card, and current medication insurance card. Parking Information: Park near the west entrance (same side as the Emergency Department). Use the parking lot in front of the [facility] sign. Directions to the Endoscopy Department: Use the entrance under the [facility] sign. Please register at the front elevator operator. After registering, take elevator F to the 4th floor. How to Prepare for the FibroScan Test No food or liquids (including water) for 3 hours prior to the procedure. What to Expect Once You Arrive for the FibroScan Test - A pain-free diagnostic test, FibroScan requires no sedation of any kind. - The procedure usually takes about 5 minutes. Your entire appointment will last about 30 minutes. - For the procedure, you will lie on your back with your right arm raised behind your head and your right abdominal area exposed. - A Certified Professional will apply a water-based gel to your skin and then place a non-invasive probe over your liver. - During the exam, you may feel a slight vibration on the skin at the tip of the probe as it delivers ultrasound waves to the area for measuring purposes. MARGARETTE Braden Question Answer Reason for Request: Fibroscan * Specialty Diagnoses / Procedures Referred By [facility] t Referred To Contact Kimberly Su APRN-CNP [address] [place] [address] [place] [address] Referral ID Status Reason Start Date Expiration Date Visits Re quested Visits Authorized Scheduling Instructions Please arrive at least 30 minutes before your appointment time. If your appointment is scheduled for 8:00 am please arrive 1 hr early (7:00 am). Please bring the following with you the day of your procedure: 1. Insurance information and proof of residence. 2. Current medication prescription bottles 3. Responsible adult for transportation home. Wear casual, loose comfortable clothes. Leave valuables and jewelry at home. If you are having an IV sedated procedure, plan that your stay will be 2 1/2- 3 hours. Please arrive at your scheduled time. Procedures are scheduled to follow one another. In an effort to provide you the best quality care, some procedures may exceed their scheduled timeframe. Please note that if your procedure follows another there may be delays in the actual starting time. We apologize in advance for any inconvenience this may cause. If you rely on the [facility] for transportation you must schedule a morning appointment. Please inform the laboratory secretary when you are scheduling your appointment. Patients with special needs (children, language barrier, etc.) may have a family member stay with them during the recovery phase. Please follow preparation instructions for your procedure. If you have any questions please call Sunday-Sunday 7:30 am-4:30 pm . Endoscopy Hours are Sunday-Sunday 7:30 am-4:30 pm. [id number] SHOULD BE USED BY GI PHYSICIANS ONLY. If you need any of the following procedures scheduled for your patient, they must first have a GI consult. Please order a Gastroenterology Service Request ([id number]). Please select the procedure(s) you wish to have scheduled for your patient: Hydrogen Breath Test (5 hour test) I would like the procedure scheduled by My secretary board of commissioners Please schedule next available MARGARETTE Braden [facility] SUITE HYDROGEN BREATH TEST A hydrogen breath test is a way to measure whether your body can handle certain starches found in food. This is important in helping your doctor plan your care. WHAT PREPARATION IS REQUIRED? You should not have taken antibiotics for 1 month before this test. You also should not have had a colonoscopy in the month before this test. THE DAY BEFORE THE TEST: YOU ARE NOT ALLOWED TO EAT STARCHES OR FIBER SO, MEALS ARE TO BE EATEN LISTED: Eat three meals this day, no snacks. For Breakfast before 9:00am: May eat egg and plain beef or chicken- no seasonings Eat only plain white rice and meat. The meat must be either beef or chicken. Do not add anything to the meat or the rice. Eat lunch between 12:00 noon and 2:00 p.m. Eat dinner between 4:00pm and 6:00pm You may only drink plain water, black tea or black coffee on this day. DO NOT EAT OR DRINK THE FOLLOWING: Milk or dairy products (ice cream, cheese, pudding, creamed soups or sauces) Fiber supplements like Metamucil, Citrucel or Fibercon Fruit juices Cereals, fruits, vegetables or food containing starches (starches include foods such as bread, pasta, noodles, chips and crackers) Do not eat anything after 6:00 p.m. You may drink plain water until 6:00am the day of the test. After 9:00pm: Do not chew gum, smoke cigarettes or eat hard candy the day of the test. DAY OF TEST: You may brush your teeth in the morning. Denture wearers avoid using adhesive. Do not take your morning medications. Bring them with you the day of the test. This includes any diabetic medication If you are diabetic, please check your blood sugar in the morning. WHAT SHOULD YOU EXPECT DURING THE TEST? You will drink a sweet liquid. Then you will blow into a small bag. You will do this every 15 minutes for two (2) hours. Then you will drink another liquid (Lactose). You will blow into the bag every 30 minutes for three (3) hours. The test is a total of six (6) hours long. You might have gas cramps and diarrhea with this test. You cannot take a nap, sleep, eat or smoke during this test; you must remain awake and alert. Please bring a book or an activity with you. WHAT HAPPENS AFTER THE TEST? You may return to your normal diet and activity after the test. The breath samples will be studied. Your doctor will contact you with the test results. You may call your ordering doctor 2 weeks after having this test for the results. LOCATION: [place] [address] Office Hours: Sunday through Sunday 7:30a - 5:00p APPOINTMENT INFORMATION: Arrive at least 15 minutes prior to your scheduled appointment time. Bring your photo ID, insurance card, and current medication insurance card. PARKING INFORMATION: Park near the west entrance (same side as the Emergency Department). Use the parking lot in front of the [facility] sign. DIRECTIONS TO THE ENDOSCOPY DEPARTMENT: Use the entrance under the [facility] sign. Please register at the front elevator operator. After registering, take elevator F to the 4th floor. Test Date: Test Time: WE MAKE EVERY ATTEMPT TO MAINTAIN OUR SCHEDULE; HOWEVER, IT IS NOT ALWAYS POSSIBLE. SOME PROCEDURES MAY TAKE LONGER THAN OTHERS AND OUR CASES ARE SCHEDULED TO FOLLOW ONE ANOTHER. WE APOLOGIZE FOR ANY DELAYS. MARGARETTE Braden Question Answer Reason for Request: Hydrogen Breath Test Comments SIBO + fructose [id number] Reason for referral (narrative)* Specialty Diagnoses / Procedures Referred By Contac t Referred To Contact Kimberly Su APRN-CNP [address] [place] [address] [place] [id number] Referral ID Status Reason Start Date Expiration Date Visits Re quested Visits Authorized Scheduling Instructions Please arrive at least 30 minutes before your appointment time. If your appointment is scheduled for 8:00 am please arrive 1 hr early (7:00 am). Please bring the following with you the day of your procedure: 1. Insurance information and proof of residence. 2. Current medication prescription bottles 3. Responsible adult for transportation home. Wear casual, loose comfortable clothes. Leave valuables and jewelry at home. If you are having an IV sedated procedure, plan that your stay will be 2 1/2- 3 hours. Please arrive at your scheduled time. Procedures are scheduled to follow one another. In an effort to provide you the best quality care, some procedures may exceed their scheduled timeframe. Please note that if your procedure follows another there may be delays in the actual starting time. We apologize in advance for any inconvenience this may cause. If you rely on the [facility] for transportation you must schedule a morning appointment. Please inform the laboratory secretary when you are scheduling your appointment. Patients with special needs (children, language barrier, etc.) may have a family member stay with them during the recovery phase. Please follow preparation instructions for your procedure. If you have any questions please call Sunday-Sunday 7:30 am-4:30 pm . Endoscopy Hours are Sunday-Sunday 7:30 am-4:30 pm. [id number] SHOULD BE USED BY GI PHYSICIANS ONLY. If you need any of the following procedures scheduled for your patient, they must first have a GI consult. Please order a Gastroenterology Service Request ([id number]). Please select the procedure(s) you wish to have scheduled for your patient: Fibroscan Location: [place] [address] Office Hours: Sunday through Sunday 7:30a - 5:00p Appointment Information: Arrive at least 15 minutes prior to your scheduled appointment time. Bring your photo ID, insurance card, and current medication insurance card. Parking Information: Park near the west entrance (same side as the Emergency Department). Use the parking lot in front of the [facility] sign. Directions to the Endoscopy Department: Use the entrance under the [facility] sign. Please register at the front elevator operator. After registering, take elevator F to the 4th floor. How to Prepare for the FibroScan Test No food or liquids (including water) for 3 hours prior to the procedure. What to Expect Once You Arrive for the FibroScan Test - A pain-free diagnostic test, FibroScan requires no sedation of any kind. - The procedure usually takes about 5 minutes. Your entire appointment will last about 30 minutes. - For the procedure, you will lie on your back with your right arm raised behind your head and your right abdominal area exposed. - A Certified Professional will apply a water-based gel to your skin and then place a non-invasive probe over your liver. - During the exam, you may feel a slight vibration on the skin at the tip of the probe as it delivers ultrasound waves to the area for measuring purposes. Kimberly Su APRN-MANAGER FLIGHT Question Answer Reason for Request: Fibroscan * Specialty Diagnoses / Procedures Referred By Harvinder goodson Referred To Contact Kimberly Su APRN-CNP [address] [place] [address] [place] [address] Referral ID Status Reason Start Date Expiration Date Visits Re quested Visits Authorized Scheduling Instructions Please arrive at least 30 minutes before your appointment time. If your appointment is scheduled for 8:00 am please arrive 1 hr early (7:00 am). Please bring the following with you the day of your procedure: 1. Insurance information and proof of residence. 2. Current medication prescription bottles 3. Responsible adult for transportation home. Wear casual, loose comfortable clothes. Leave valuables and jewelry at home. If you are having an IV sedated procedure, plan that your stay will be 2 1/2- 3 hours. Please arrive at your scheduled time. Procedures are scheduled to follow one another. In an effort to provide you the best quality care, some procedures may exceed their scheduled timeframe. Please note that if your procedure follows another there may be delays in the actual starting time. We apologize in advance for any inconvenience this may cause. If you rely on the [facility] for transportation you must schedule a morning appointment. Please inform the laboratory secretary when you are scheduling your appointment. Patients with special needs (children, language barrier, etc.) may have a family member stay with them during the recovery phase. Please follow preparation instructions for your procedure. If you have any questions please call Sunday-Sunday 7:30 am-4:30 pm . Endoscopy Hours are Sunday-Sunday 7:30 am-4:30 pm. [id number] SHOULD BE USED BY GI PHYSICIANS ONLY. If you need any of the following procedures scheduled for your patient, they must first have a GI consult. Please order a Gastroenterology Service Request ([id number]). Please select the procedure(s) you wish to have scheduled for your patient: Hydrogen Breath Test (5 hour test) I would like the procedure scheduled by My secretary board of commissioners Please schedule next available MARGARETTE Braden [facility] SUITE HYDROGEN BREATH TEST A hydrogen breath test is a way to measure whether your body can handle certain starches found in food. This is important in helping your doctor plan your care. WHAT PREPARATION IS REQUIRED? You should not have taken antibiotics for 1 month before this test. You also should not have had a colonoscopy in the month before this test. THE DAY BEFORE THE TEST: YOU ARE NOT ALLOWED TO EAT STARCHES OR FIBER SO, MEALS ARE TO BE EATEN LISTED: Eat three meals this day, no snacks. For Breakfast before 9:00am: May eat egg and plain beef or chicken- no seasonings Eat only plain white rice and meat. The meat must be either beef or chicken. Do not add anything to the meat or the rice. Eat lunch between 12:00 noon and 2:00 p.m. Eat dinner between 4:00pm and 6:00pm You may only drink plain water, black tea or black coffee on this day. DO NOT EAT OR DRINK THE FOLLOWING: Milk or dairy products (ice cream, cheese, pudding, creamed soups or sauces) Fiber supplements like Metamucil, Citrucel or Fibercon Fruit juices Cereals, fruits, vegetables or food containing starches (starches include foods such as bread, pasta, noodles, chips and crackers) Do not eat anything after 6:00 p.m. You may drink plain water until 6:00am the day of the test. After 9:00pm: Do not chew gum, smoke cigarettes or eat hard candy the day of the test. DAY OF TEST: You may brush your teeth in the morning. Denture wearers avoid using adhesive. Do not take your morning medications. Bring them with you the day of the test. This includes any diabetic medication If you are diabetic, please check your blood sugar in the morning. WHAT SHOULD YOU EXPECT DURING THE TEST? You will drink a sweet liquid. Then you will blow into a small bag. You will do this every 15 minutes for two (2) hours. Then you will drink another liquid (Lactose). You will blow into the bag every 30 minutes for three (3) hours. The test is a total of six (6) hours long. You might have gas cramps and diarrhea with this test. You cannot take a nap, sleep, eat or smoke during this test; you must remain awake and alert. Please bring a book or an activity with you. WHAT HAPPENS AFTER THE TEST? You may return to your normal diet and activity after the test. The breath samples will be studied. Your doctor will contact you with the test results. You may call your ordering doctor 2 weeks after having this test for the results. LOCATION: [place] [address] Office Hours: Sunday through Sunday 7:30a - 5:00p APPOINTMENT INFORMATION: Arrive at least 15 minutes prior to your scheduled appointment time. Bring your photo ID, insurance card, and current medication insurance card. PARKING INFORMATION: Park near the west entrance (same side as the Emergency Department). Use the parking lot in front of the [facility] sign. DIRECTIONS TO THE ENDOSCOPY DEPARTMENT: Use the entrance under the [facility] sign. Please register at the front elevator operator. After registering, take elevator F to the 4th floor. Test Date: Test Time: WE MAKE EVERY ATTEMPT TO MAINTAIN OUR SCHEDULE; HOWEVER, IT IS NOT ALWAYS POSSIBLE. SOME PROCEDURES MAY TAKE LONGER THAN OTHERS AND OUR CASES ARE SCHEDULED TO FOLLOW ONE ANOTHER. WE APOLOGIZE FOR ANY DELAYS. MARGARETTE Braden Question Answer Reason for Request: Hydrogen Breath Test Comments SIBO + fructose [id number] History of Present illness Narrative* Kimberly Su APRN-CNP - 11/30/2021 9:30 AM EDT Images from the original note were not included. Department of Gastroenterology GI Clinic Note PCP: Anton Walton MD Referred by: Referring Provider: Anton Walton MD Last GI Visit: Most recent visit in Gastroenterology was on 04/05/2021 with Gen Cuevas MD Chief Complaint: Chief Complaint Patient presents with CONSULT, NEW GI HPI: Sergei Soto is a 61 year old male with PMH of colon polyps, family hx of CRC, hx of pancreatitis, hx of diverticulitis. Being seen in GI clinic today for new consult for bloating. Intense bloating/distention physical change in abdomen size for 2-3 years. He has tried diet changes, cutting out coffee, alcohol. Nothing helps. Pcp tried metroniadaozole and he had improvement but back now. Even a few bites of food gives bloating. Reduces appetite Not painful. Feels it in the Middle abdomen not epigastric. BM used to be 1 x daily, but now more often and it smells bad, looks like undigested food at times. Off ibuprofen On pepcid daily 1-2 beers here and there. In the summer drinks more. Eats mostly Chicken veggies and fruit Swims un jurado aimee a lot Mom with colon cancer Dad had large polyp Denies hematochezia, unintentional weight loss Reports no smoking, no elicit drug use. Past medical, surgical, family and social histories reviewed and updated as appropriate. GI procedures reviewed: EGD 06/2021 DUODENUM: Mild erythema in the duodenal bulb, random biopsies obtained (Bottle A). Otherwise, descending portion appeared normal. STOMACH: pyloric channel, antrum, body, fundus and cardia, including retroflexed views appear normal. ESOPHAGUS: Diaphragmatic hiatus was 40 cm from incisors and GE junction (upper margin of gastric folds) was at 40 cm from incisors. Squamocolumnar junction was at 40 cm from incisors. Mucosa appearednormal. Colonoscopy 06/2021 FINDINGS: Cecum: Normal. Ascending Colon: Normal mucosa with few diverticuli Hepatic Flexure: Normal. Transverse Colon: Normal. Splenic Flexure: Normal. Descending Colon: Normal. Sigmoid Colon: Normal mucosa with scattered diverticuli Rectum: Abnormal. A 4 mm polyp removed with cold snare (Bottle B). Another 2 mm polyp removed with cold snare (Bottle B) Retroflexed Views: Rectum showed internal hemorrhoids. Histology A. GI Duodenal Biopsy, Fragment of duodenal mucosa with intact villous architecture and no increase in intraepithelial lymphocytes showing focal foveolar metaplasia and mild congestion suggestive of mild chronic duodenitis. B. Rectal, Polyp Hyperplastic polyp. Imaging reviewed: MRCP 05/2021 IMPRESSION: 1. No abnormality seen to explain chronic pancreatitis. Normal pancreas and gallbladder with no evidence of pancreatic divisum or cholelithiasis. 2. 1.5 cm polypoid lesion in the distal gastric antrum/first portion of the duodenum, could represent a polyp versus a lipoma. RUQ ultrasound 04/2021 FINDINGS: Liver Craniocaudal length: 15.3 cm. Echogenicity: Increased hepatic echogenicity and decreased acoustic penetration and conspicuity of the portal triads, compatible with moderate steatosis. Surface nodularity: Not visualized Mass (size and location): None. Bile ducts Intrahepatic ducts: No biliary dilatation. Common bile duct: Normal caliber. Diameter 4 mm. Gallbladder Size and morphology: Normal caliber and wall thickness. Cholelithiasis: None Pericholecystic fluid: None. Sonographic Cormier sign: Absent. Pancreas The pancreas is mostly obscured by overlying bowel gas and not well seen. Other findings None. IMPRESSION: Hepatomegaly with moderate hepatic steatosis. No cholelithiasis or sonographic findings of acute cholecystitis. Current Medications Outpatient Medications Marked as Taking for the 11/30/21 encounter (Office Visit) with Kimberly Su APRN-CNP Medication Sig Dispense Refill famotidine (PEPCID) 20 MG tablet TAKE 1 TABLET BY MOUTH TWICE DAILY NEEDED 180 Tablet 3 atorvastatin (LIPITOR) 20 mg tablet TAKE 1 TABLET BY MOUTH EVERY DAY 90 Tablet 3 triamcinolone 0.1 % cream Apply thin layer to affected area BID PRN. 80 g 2 tadalafil (CIALIS) 10 MG tablet Take 1 Tablet by mouth as needed for Erectile Dysfunction. 30 minutes prior to anticipated sexual activity as one single dose and not more than once daily. 20 Tablet 2 Physical Exam BP 144/76 (BP Location: right arm, BP position: sitting, Cuff Size: adult) Pulse 76 Temp 97.5 F(36.4 C) (Temporal) Resp 16 Ht 6' (1.829 m) Wt 209 lb (94.8 kg) BMI 28.35 kg/m Physical Exam Cardiovascular: Rate and Rhythm: Normal rate. Abdominal: General: Bowel sounds are normal. Palpations: Abdomen is soft. There is no mass. Tenderness: There is no abdominal tenderness. Hernia: No hernia is present. Skin: General: Skin is warm and dry. Coloration: Skin is not jaundiced. Neurological: Mental Status: He is alert. Labs CBC (last 3 years, up to 5 values) WBC RBC Hgb Hct MCV RDW Plt 04/25/21 1428 6.1 4.65 15.1 43.8 94 13.0 156 03/17/21 0936 9.4 4.56 14.9 43.7 96 12.5 162 12/16/20 0755 6.4 4.68 15.4 44.1 94 12.7 164 Basic Metabolic Panel Na K Cl CO2 Gap Glu BUN Cr Ca 11/01/21 1612 138 4.0 104 25 13 93 13 1.27 9.7 04/25/21 1428 139 4.3 105 25 13 81 14 1.12 10.5 03/17/21 0936 137 4.1 101 30 10 135 13 1.25 9.8 12/16/20 0755 138 4.7 104 26 13 132 16 1.12 9.4 LFT's (last 3 years, up to 5 values) T Prot Albumin D Bili T Bili Alk Phos ALT AST 11/01/21 1612 7.3 4.6 0.20 1.2 91 71 57 06/09/21 0802 7.4 4.5 0.10 1.1 80 58 38 04/25/21 1428 7.4 4.7 0.10 0.6 87 50 29 03/17/21 0936 7.3 4.1 0.20 1.1 82 22 13 Assessment and Plan Sergei Soto is a 61 year old male with PMH of colon polyps, family hx of CRC, hx of pancreatitis, hx of diverticulitis. Being seen in GI clinic today for new consult for bloating/distention with worsening gas and more frequent stools. He had colonoscopy 06/2021 no explanation for symptoms. Ddx EPI, SIBO, food intolerance or functional 1. Bloating 2. Flatus 3. Hepatic steatosis 4. Loose stools Plan: Orders & Meds Signed During This Encounter PANCREATIC ELASTASE, STOOL Calprotectin, Stool Celiac Disease Antibody Panel C-Reactive Protein Fecal Fat, Qualitative (Crit * Endoscopy Service Request Other - hydrogen breath test for SIBO and fructose ihntolerance Endoscopy Service Request Other - fibroscan Giardia/Crypto EIA Stool Culture - Recommended daily dietary fiber intake is 25g-35g for adults to promote optimal gut health A copy of this note was sent to PCP MD Kimberly Garcias APRN-CNP [id number] Division of Gastroenterology [facility] documented in this [id number] History of Present illness Narrative* Kimberly Su, GIFT SHOP ASSISTANT-MANAGER FLIGHT - 11/30/2021 9:30 AM EDT Images from the original note were not included. Department of Gastroenterology GI Clinic Note PCP: Anton Walton MD Referred by: Referring Provider: Anton Walton MD Last GI Visit: Most recent visit in Gastroenterology was on 04/05/2021 with Gen Cuevas MD Chief Complaint: Chief Complaint Patient presents with CONSULT, NEW GI HPI: Sergei Soto is a 61 year old male with PMH of colon polyps, family hx of CRC, hx of pancreatitis, hx of diverticulitis. Being seen in GI clinic today for new consult for bloating. Intense bloating/distention physical change in abdomen size for 2-3 years. He has tried diet changes, cutting out coffee, alcohol. Nothing helps. Pcp tried metroniadaozole and he had improvement but back now. Even a few bites of food gives bloating. Reduces appetite Not painful. Feels it in the Middle abdomen not epigastric. BM used to be 1 x daily, but now more often and it smells bad, looks like undigested food at times. Off ibuprofen On pepcid daily 1-2 beers here and there. In the summer drinks more. Eats mostly Chicken veggies and fruit Swims un jurado aimee a lot Mom with colon cancer Dad had large polyp Denies hematochezia, unintentional weight loss Reports no smoking, no elicit drug use. Past medical, surgical, family and social histories reviewed and updated as appropriate. GI procedures reviewed: EGD 06/2021 DUODENUM: Mild erythema in the duodenal bulb, random biopsies obtained (Bottle A). Otherwise, descending portion appeared normal. STOMACH: pyloric channel, antrum, body, fundus and cardia, including retroflexed views appear normal. ESOPHAGUS: Diaphragmatic hiatus was 40 cm from incisors and GE junction (upper margin of gastric folds) was at 40 cm from incisors. Squamocolumnar junction was at 40 cm from incisors. Mucosa appearednormal. Colonoscopy 06/2021 FINDINGS: Cecum: Normal. Ascending Colon: Normal mucosa with few diverticuli Hepatic Flexure: Normal. Transverse Colon: Normal. Splenic Flexure: Normal. Descending Colon: Normal. Sigmoid Colon: Normal mucosa with scattered diverticuli Rectum: Abnormal. A 4 mm polyp removed with cold snare (Bottle B). Another 2 mm polyp removed with cold snare (Bottle B) Retroflexed Views: Rectum showed internal hemorrhoids. Histology A. GI Duodenal Biopsy, Fragment of duodenal mucosa with intact villous architecture and no increase in intraepithelial lymphocytes showing focal foveolar metaplasia and mild congestion suggestive of mild chronic duodenitis. B. Rectal, Polyp Hyperplastic polyp. Imaging reviewed: MRCP 05/2021 IMPRESSION: 1. No abnormality seen to explain chronic pancreatitis. Normal pancreas and gallbladder with no evidence of pancreatic divisum or cholelithiasis. 2. 1.5 cm polypoid lesion in the distal gastric antrum/first portion of the duodenum, could represent a polyp versus a lipoma. RUQ ultrasound 04/2021 FINDINGS: Liver Craniocaudal length: 15.3 cm. Echogenicity: Increased hepatic echogenicity and decreased acoustic penetration and conspicuity of the portal triads, compatible with moderate steatosis. Surface nodularity: Not visualized Mass (size and location): None. Bile ducts Intrahepatic ducts: No biliary dilatation. Common bile duct: Normal caliber. Diameter 4 mm. Gallbladder Size and morphology: Normal caliber and wall thickness. Cholelithiasis: None Pericholecystic fluid: None. Sonographic Cormier sign: Absent. Pancreas The pancreas is mostly obscured by overlying bowel gas and not well seen. Other findings None. IMPRESSION: Hepatomegaly with moderate hepatic steatosis. No cholelithiasis or sonographic findings of acute cholecystitis. Current Medications Outpatient Medications Marked as Taking for the 11/30/21 encounter (Office Visit) with Kimberly Su APRN-BLAYNE Medication Sig Dispense Refill famotidine (PEPCID) 20 MG tablet TAKE 1 TABLET BY MOUTH TWICE DAILY NEEDED 180 Tablet 3 atorvastatin (LIPITOR) 20 mg tablet TAKE 1 TABLET BY MOUTH EVERY DAY 90 Tablet 3 triamcinolone 0.1 % cream Apply thin layer to affected area BID PRN. 80 g 2 tadalafil (CIALIS) 10 MG tablet Take 1 Tablet by mouth as needed for Erectile Dysfunction. 30 minutes prior to anticipated sexual activity as one single dose and not more than once daily. 20 Tablet 2 Physical Exam BP 144/76 (BP Location: right arm, BP position: sitting, Cuff Size: adult) Pulse 76 Temp 97.5 F(36.4 C) (Temporal) Resp 16 Ht 6' (1.829 m) Wt 209 lb (94.8 kg) BMI 28.35 kg/m Physical Exam Cardiovascular: Rate and Rhythm: Normal rate. Abdominal: General: Bowel sounds are normal. Palpations: Abdomen is soft. There is no mass. Tenderness: There is no abdominal tenderness. Hernia: No hernia is present. Skin: General: Skin is warm and dry. Coloration: Skin is not jaundiced. Neurological: Mental Status: He is alert. Labs CBC (last 3 years, up to 5 values) WBC RBC Hgb Hct MCV RDW Plt 04/25/21 1428 6.1 4.65 15.1 43.8 94 13.0 156 03/17/21 0936 9.4 4.56 14.9 43.7 96 12.5 162 12/16/20 0755 6.4 4.68 15.4 44.1 94 12.7 164 Basic Metabolic Panel Na K Cl CO2 Gap Glu BUN Cr Ca 11/01/21 1612 138 4.0 104 25 13 93 13 1.27 9.7 04/25/21 1428 139 4.3 105 25 13 81 14 1.12 10.5 03/17/21 0936 137 4.1 101 30 10 135 13 1.25 9.8 12/16/20 0755 138 4.7 104 26 13 132 16 1.12 9.4 LFT's (last 3 years, up to 5 values) T Prot Albumin D Bili T Bili Alk Phos ALT AST 11/01/21 1612 7.3 4.6 0.20 1.2 91 71 57 06/09/21 0802 7.4 4.5 0.10 1.1 80 58 38 04/25/21 1428 7.4 4.7 0.10 0.6 87 50 29 03/17/21 0936 7.3 4.1 0.20 1.1 82 22 13 Assessment and Plan Sergei Soto is a 61 year old male with PMH of colon polyps, family hx of CRC, hx of pancreatitis, hx of diverticulitis. Being seen in GI clinic today for new consult for bloating/distention with worsening gas and more frequent stools. He had colonoscopy 06/2021 no explanation for symptoms. Ddx EPI, SIBO, food intolerance or functional 1. Bloating 2. Flatus 3. Hepatic steatosis 4. Loose stools Plan: Orders & Meds Signed During This Encounter PANCREATIC ELASTASE, STOOL Calprotectin, Stool Celiac Disease Antibody Panel C-Reactive Protein Fecal Fat, Qualitative (Crit * Endoscopy Service Request Other - hydrogen breath test for SIBO and fructose ihntolerance Endoscopy Service Request Other - fibroscan Giardia/Crypto EIA Stool Culture - Recommended daily dietary fiber intake is 25g-35g for adults to promote optimal gut health A copy of this note was sent to PCP MD Kimberly Garcias APRN-CNP [id number] Division of Gastroenterology [facility] documented in this [id number] History of Present illness Narrative* Anton Walton MD - 11/01/2021 3:44 PM EDT Follow up. History of Present Illness: 61 year old male seen and assessed. Right sided sciatica , lumbar disorder, sub acute condition much better. Fh colon cancer, next colonoscopy due in 2021. Monitor spot on chest round left chest small area. Intermittent rash on buttocks, folliculitis? Has been to [place] for honeymoon. Likes to be on boat in summer. Alcohol summer some times. Env allergies more mucus these days. 1 daughter , planning to be in [place] soon. Dad in 2020. Trouble maintaining erection, has used cialis in the past done well, in the past. dating a girl. 06/03/21 61 year old male seen and assessed. hld borderline glucose. pepcid taking helping stomach. In afternoon at times feels little unsteady, and is intermittent. Was on tums , and mild elevation in calcium, has stopped since in er few weeks ago. Recent scan show small polyp, in gastric antrum first portion of duodenum? Hepatic steatosis Colonoscopy and endoscopy happening soon. 07/22/21 61 year old male seen and assessed. stomach symptoms ongoing Gerd. Taking lipitor. counseled on covid booster. daughter teaching [place]i in [place]. 11/01/21 61 year old male seen and assessed. Feels better but abd still bloated after eating. Had covid in August 2021. Moving bowels once daily. Will be getting blood work today. 4 drinks a week alcohol. Estimated 10-year risk of a first ASCVD event is 15.2%. ASCVD is defined as [place], CHD , or stroke Orders placed or performed during the hospital encounter of 06/08/21 COLONOSCOPY, FLEXIBLE; W/REMOVAL, LESION, SNARE COLONOSCOPY, FLEXIBLE; W/REMOVAL, LESION, SNARE COLONOSCOPY, FLEXIBLE, PROXIMAL TO SPLENIC FLEXURE; DX, W/WO SPECIMENS/COLON DECOMP (SEP PROC) COLONOSCOPY, FLEXIBLE, PROXIMAL TO SPLENIC FLEXURE; DX, W/WO SPECIMENS/COLON DECOMP (SEP PROC) Vitals: 11/01/21 1527 BP: 133/67 Pulse: 59 Resp: 16 Temp: 97.4 F (36.3 C) SpO2: 100% Past Medical History: Lumbar disorder Sciatica Past Surgical History: Left hand 5th finger surgery had surgery Social History: Social History Socioeconomic History Marital status: Highest education level: 12th grade Tobacco Use Smoking status: Never Smokeless tobacco: Never Substance and Sexual Activity Alcohol use: Yes Comment: occ Drug use: Not Currently Social Determinants of Health Financial Resource Strain: Low Risk Difficulty of Paying Living Expenses: Not hard at all Food Insecurity: No Food Insecurity Worried About Running Out of Food in the Last Year: Never true Ran Out of Food in the Last Year: Never true Transportation Needs: No Transportation Needs Lack of Transportation (Medical): No Lack of Transportation (Non-Medical): No Physical Activity: Insufficiently Active Days of Exercise per Week: 4 days Minutes of Exercise per Session: 20 min Stress: Stress Concern Present Feeling of Stress : To some extent Social Connections: Socially Isolated Frequency of Communication with Friends and Family: More than three times a week Frequency of Social Gatherings with Friends and Family: More than three times a week Attends Hindu Services: Never Active Member of Clubs or Organizations: No Attends Club or Organization Meetings: Never Marital Status: Intimate Partner Violence: Not At Risk Fear of Current or Ex-Partner: No Emotionally Abused: No Physically Abused: No Sexually Abused: No Family History: Mom and dad 2020. Mom of colon cancer 83 dad of kidney failure. 85 Allergies: Patient has no known allergies. BP 133/67 Pulse 59 Temp 97.4 F (36.3 C) (Temporal) Resp 16 Ht 6' (1.829 m) Wt 208 lb (94.3 kg) SpO2 100% BMI 28.21 kg/m Review Of Systems: Skin: neg Eyes: neg Ears/Nose/Throat: negative Respiratory: negative symptoms (no cough, hemoptysis, SOB, BUNCH, PND, wheezing) Cardiovascular: negative symptoms (No CP/Pressure/Tightness, palpitations, orthopnea, PND, SOB, BUNCH, edema, PARKS or vision change) Gastrointestinal: abd bloating otherwise abd ok. After eating Genitourinary: difficult in maintaining erection. no urinary symptoms Neurologic: negative symptoms (no syncope, seizures, weakness, gait problems, numbness, burning pain, tremors, or memory loss) negative (no arthritic pain, no joint swelling, no muscle weakness) Psychiatric: negative (no sleep disturbance, anxiety, memory loss, disorientation, inattention, feelings of depression) Hematologic/Lymphatic/Immunologic: negative (no anemia, bleeding, bruising) Endocrine: negative review of symptoms PHYSICAL EXAMINATION: Vital signs reviewed General appearance: alert, pleasant, mild distress, cooperative, oriented to time, place and person Head: Normocephalic. No masses, lesions, tenderness or abnormalities Eyes: negative Ears: negative Nose/Sinuses: Nares normal. Septum midline. Mucosa normal. No drainage or sinus tenderness. Oropharynx: Lips, mucosa, and tongue normal. Teeth and gums normal. Oropharynx normal Neck: Neck supple; normal JVP; carotids normal pulse without bruits; thyroid normal. Back: Back symmetric, no curvature. ROM normal. No CVA tenderness. Lungs: Good breath sounds; no wheezes, rales or rhonchi. Heart: Regular rate and rhythm. Normal S1 and S2. No murmurs, clicks or gallops. Abdomen: Abdomen soft, non-tender. BS normal. No masses, No organomegaly Extremities: Extremities normal. No deformities, edema, or skin discoloration Neuro: Intact and symmetric. A/P: (R14.0) Abdominal bloating (primary encounter diagnosis) Plan: metronidazole (FLAGYL) 500 MG tablet (K21.9) Gastroesophageal reflux disease, unspecified whether esophagitis present Plan: metronidazole (FLAGYL) 500 MG tablet (E78.5) Hyperlipidemia, unspecified hyperlipidemia type Plan: metronidazole (FLAGYL) 500 MG tablet (R79.89) Elevated LFTs Plan: Anton Walton MD documented in this [id number] Telephone encounter Note* Telephone Encounter - Maggie Starks - 09/06/2021 3:24 PM EDT Requested Prescriptions Pending Prescriptions Disp Refills famotidine (PEPCID) 20 MG tablet [Pharmacy Med Name: famotidine 20 mg tablet] 180 Tablet 3 Sig: TAKE 1 TABLET BY MOUTH TWICE DAILY NEEDED atorvastatin (LIPITOR) 20 mg tablet [Pharmacy Med Name: atorvastatin 20 mg tablet] 90 Tablet 3 Sig: TAKE 1 TABLET BY MOUTH EVERY DAY Last visit with PCP (ANTON WALTON) was 07/22/2021 Next appointment with PCP (ANTON WALTON) is 11/01/2021 [id number] Miscellaneous Notes* Telephone Encounter - Maggie Starks - 09/06/2021 3:24 PM EDT Requested Prescriptions Pending Prescriptions Disp Refills famotidine (PEPCID) 20 MG tablet [Pharmacy Med Name: famotidine 20 mg tablet] 180 Tablet 3 Sig: TAKE 1 TABLET BY MOUTH TWICE DAILY NEEDED atorvastatin (LIPITOR) 20 mg tablet [Pharmacy Med Name: atorvastatin 20 mg tablet] 90 Tablet 3 Sig: TAKE 1 TABLET BY MOUTH EVERY DAY Last visit with PCP (ANTON WALTON) was 07/22/2021 Next appointment with PCP (ANTON WALTON) is 11/01/2021 documented in this [id number] Instructions* Patient Instructions* Anton Walton MD - 07/22/2021 11:08 AM EDT [id number] dermatology. Please call to make a appt. documented in this [id number] History of Present illness Narrative* Anton Walton MD - 07/22/2021 10:59 AM EDT Follow up. History of Present Illness: 61 year old male seen and assessed. Right sided sciatica , lumbar disorder, sub acute condition much better. Fh colon cancer, next colonoscopy due in 2021. Monitor spot on chest round left chest small area. Intermittent rash on buttocks, folliculitis? Has been to [place] for honeymoon. Likes to be on boat in summer. Alcohol summer some times. Env allergies more mucus these days. 1 daughter , planning to be in [place] soon. Dad in 2020. Trouble maintaining erection, has used cialis in the past done well, in the past. dating a girl. 06/03/21 61 year old male seen and assessed. hld borderline glucose. pepcid taking helping stomach. In afternoon at times feels little unsteady, and is intermittent. Was on tums , and mild elevation in calcium, has stopped since in er few weeks ago. Recent scan show small polyp, in gastric antrum first portion of duodenum? Hepatic steatosis Colonoscopy and endoscopy happening soon. 07/22/21 61 year old male seen and assessed. stomach symptoms ongoing Gerd. Taking lipitor. counseled on covid booster. daughter teaching [place]i in [place]. Estimated 10-year risk of a first ASCVD event is 13.9%. ASCVD is defined as [place], CHD , or stroke Orders placed or performed during the hospital encounter of 06/08/21 COLONOSCOPY, FLEXIBLE; W/REMOVAL, LESION, SNARE COLONOSCOPY, FLEXIBLE; W/REMOVAL, LESION, SNARE COLONOSCOPY, FLEXIBLE, PROXIMAL TO SPLENIC FLEXURE; DX, W/WO SPECIMENS/COLON DECOMP (SEP PROC) COLONOSCOPY, FLEXIBLE, PROXIMAL TO SPLENIC FLEXURE; DX, W/WO SPECIMENS/COLON DECOMP (SEP PROC) Vitals: 07/22/21 1052 BP: 126/67 Pulse: 89 Temp: 97.6 F (36.4 C) Past Medical History: Lumbar disorder Sciatica Past Surgical History: Left hand 5th finger surgery had surgery Social History: Social History Socioeconomic History Marital status: Highest education level: 12th grade Tobacco Use Smoking status: Never Smoker Smokeless tobacco: Never Used Substance and Sexual Activity Alcohol use: Yes Comment: occ Drug use: Not Currently Social Determinants of Health Financial Resource Strain: Low Risk Difficulty of Paying Living Expenses: Not hard at all Food Insecurity: No Food Insecurity Worried About Running Out of Food in the Last Year: Never true Ran Out of Food in the Last Year: Never true Transportation Needs: No Transportation Needs Lack of Transportation (Medical): No Lack of Transportation (Non-Medical): No Physical Activity: Insufficiently Active Days of Exercise per Week: 4 days Minutes of Exercise per Session: 20 min Stress: Stress Concern Present Feeling of Stress : To some extent Social Connections: Socially Isolated Frequency of Communication with Friends and Family: More than three times a week Frequency of Social Gatherings with Friends and Family: More than three times a week Attends Hindu Services: Never Active Member of Clubs or Organizations: No Attends Club or Organization Meetings: Never Marital Status: Intimate Partner Violence: Not At Risk Fear of Current or Ex-Partner: No Emotionally Abused: No Physically Abused: No Sexually Abused: No Family History: Mom and dad 2018, 2020. Mom of colon cancer 83 dad of kidney failure. 85 Allergies: Patient has no known allergies. BP 126/67 Pulse 89 Temp 97.6 F (36.4 C) (Temporal) Wt 204 lb (92.5 kg) BMI 27.67 kg/m Review Of Systems: Skin: neg Eyes: neg Ears/Nose/Throat: negative Respiratory: negative symptoms (no cough, hemoptysis, SOB, BUNCH, PND, wheezing) Cardiovascular: negative symptoms (No CP/Pressure/Tightness, palpitations, orthopnea, PND, SOB, BUNCH, edema, PARKS or vision change) Gastrointestinal: nausea for months, pepcid helping. Genitourinary: difficult in maintaining erection. no urinary symptoms Neurologic: negative symptoms (no syncope, seizures, weakness, gait problems, numbness, burning pain, tremors, or memory loss) negative (no arthritic pain, no joint swelling, no muscle weakness) Psychiatric: negative (no sleep disturbance, anxiety, memory loss, disorientation, inattention, feelings of depression) Hematologic/Lymphatic/Immunologic: negative (no anemia, bleeding, bruising) Endocrine: negative review of symptoms PHYSICAL EXAMINATION: Vital signs reviewed General appearance: alert, pleasant, mild distress, cooperative, oriented to time, place and person Head: Normocephalic. No masses, lesions, tenderness or abnormalities Eyes: negative Ears: negative Nose/Sinuses: Nares normal. Septum midline. Mucosa normal. No drainage or sinus tenderness. Oropharynx: Lips, mucosa, and tongue normal. Teeth and gums normal. Oropharynx normal Neck: Neck supple; normal JVP; carotids normal pulse without bruits; thyroid normal. Back: Back symmetric, no curvature. ROM normal. No CVA tenderness. Lungs: Good breath sounds; no wheezes, rales or rhonchi. Heart: Regular rate and rhythm. Normal S1 and S2. No murmurs, clicks or gallops. Abdomen: Abdomen soft, non-tender. BS normal. No masses, No organomegaly Extremities: Extremities normal. No deformities, edema, or skin discoloration Neuro: Intact and symmetric. A/P: (K21.9) Gastroesophageal reflux disease, unspecified whether esophagitis present (primary encounterdiagnosis) Plan: BASIC METABOLIC PANEL, FULL LIPID PROFILE, HEPATIC FUNCTION PANEL, omeprazole (PRILOSEC) 40 MG capsule, triamcinolone 0.1 % cream Added omeprazole (R21) Rash of back Plan: BASIC METABOLIC PANEL, FULL LIPID PROFILE, HEPATIC FUNCTION PANEL, omeprazole (PRILOSEC) 40 MG capsule, triamcinolone 0.1 % cream (K29.80) Duodenitis Plan: BASIC METABOLIC PANEL, FULL LIPID PROFILE, HEPATIC FUNCTION PANEL, omeprazole (PRILOSEC) 40 MG capsule, triamcinolone 0.1 % cream (E78.5) Hyperlipidemia, unspecified hyperlipidemia type Plan: BASIC METABOLIC PANEL, FULL LIPID PROFILE, HEPATIC FUNCTION PANEL, omeprazole (PRILOSEC) 40 MG capsule, triamcinolone 0.1 % cream (R79.89) Elevated LFTs Plan: BASIC METABOLIC PANEL, FULL LIPID PROFILE, HEPATIC FUNCTION PANEL, omeprazole (PRILOSEC) 40 MG capsule, triamcinolone 0.1 % cream Anton Walton MD documented in this [id number] Miscellaneous Notes* Telephone Encounter - Rena Bretn - 06/14/2021 10:11 AM EDT PT called. Message was relayed to PT. No further questions. * Telephone Encounter - Cecilia Thomson - 06/14/2021 9:47 AM EDT Images from the original note were not included. Anton Walton MD You 1 hour ago (8:36 AM) I checked hepatitis panel due to elevated lft. I will discuss these recommended vaccines in next visit, not required at this time. thanks Anton Walton MD Message text I attempted to contact this patient at listed phone number, no answer, left brief message for the patient to return phone call to Dr. Walton's office at [phone] for a message from the provider. REFERENCE 99. * Telephone Encounter - Cecilia Thomson - 06/09/2021 2:02 PM EDT Patient was identified by name and date of . Cecilia Thomson Called pt and relayed message. Reviewed results with pt. I relayed Hep B surface antibody <3.1-meaning not immune? Hep A Ab IgM non-reactive. Will ask Dr. Walton to clarify. * Telephone Encounter - Anton Walton MD - 06/09/2021 1:30 PM EDT Lipids elevated. lft elevated. other test ok. Estimated 10-year risk of a first ASCVD event is 14.1%. ASCVD is defined as [place], CHD , or stroke Will recommend lipitor 20 mg daily, to help lower lipids. Exercise 30 minutes 4-5 times a week. Food low in saturated fat. Please inform Thanks. Anton Walton MD documented in this [id number] Hospital Discharge instructions* Instructions* Laura Mosher RN - 05/16/2021 PERIOPERATIVE DISCHARGE/HOME-GOING INSTRUCTIONS ANESTHESIA - GENERAL (ADULT) If a problem arises, you may contact your physician by calling [phone] and asking for the resident documentation writer for service. Special Care Needs: Activity: Rest at home today and tomorrow, then progress to your regular activities as tolerated. Diet: Clear liquids are best tolerated at first. If you are not nauseated, you can progress your diet to solid foods as tolerated. Possible post-operative precautions: Call you doctor or clinic for: 1. Signs of infection such as fever or chills. 2. Severe pain that in not relieved by Tylenol or your pain medicine prescription. 3. You may have a sore throat - it is usually gone in 1 to 2 days. Post-anesthesia safety: Possible side effects include drowsiness, dizziness, or inability to think clearly. For your safety, do not drive, drink alcoholic beverages, take any unprescribed medication or make any important decisions for 24 hours. A responsible adult should be with you for 24 hours. If no urine by 6pm or you become very uncomfortable and can t urinate, call [phone] or come to the emergency room. The day after surgery, a nurse will call to check on you. However, if there are any questions or concerns, please call us at the number listed in the home going instructions. documented in this [id number] Miscellaneous Notes* Anesthesia Attestation - Farideh Hunter MD - 05/16/2021 1:58 PM EDT Anesthesia Attestation ATTESTATION OF INFORMED CONSENT FOR ANESTHESIA Anesthesia options were discussed with the patient and/or legal advertising representative. The risks, benefits and alternatives were reviewed. Questions regarding anesthesia were answered. Patient and/or legal advertising representative knows such anesthetics and procedures may be performed by Resident physicians, Certified Anesthesiologist Assistants, or Certified Nurse Anesthetists under the supervision of a physician. The patient /or the patient s legal representativeagree with the plan for anesthesia. documented in this [id number] Instructions* Patient Instructions* Yazan Adams APRN-CNP - 05/09/2021 8:24 AM EDT On the morning of your surgery please take only the following medications, with a small sip of water: famotidine (PEPCID) 20 MG tablet Do not take any Aspirin after 05/31. Do not take any Ibuprofen, Aleve, Advil, or Motrin or any other NSAIDS after 06/04. May take over the counter Acetaminophen (Tylenol) as needed for pain Please hold all Vitamin E, Remington 3, fish oil and herbal supplements for 1 week prior to surgery documented in this [id number] Miscellaneous Notes* PSE Appt H&P - Jose Luis Melgar - 05/09/2021 8:20 AM EDT Patient was identified by name and date of . Jose Luis Melgar Bill of rights provided to patient * PSE Appt H&P - Yazan Adams APRN-CNP - 05/06/2021 12:15 PM EDT Images from the original note were not included. Presurgical Evaluation Sergei Soto, [id number] 61 year old Male 05/09/2021 VITAL SIGNS: BP 118/68 Pulse 70 Temp 96.6 F (35.9 C) (Temporal) Resp 16 Ht 1.829 m (6') Wt 93.4 kg (206 lb) SpO2 100% BMI 27.94 kg/m ALLERGIES: No Known Allergies HISTORY OF PRESENT ILLNESS: Sergei Soto is a 61 year old male pt who is seen here today for pre-surgical evaluation for MRI and ESOPHAGOGASTRODUODENOSCOPY AND COLONOSCOPY. He has a h/o idiopathic chronic pancreatitis and acute diverticulitis, black stool and change in bowel habits. Currently denies fever and chills, new cough, SOB or CP. He is scheduled for MRI on 05/16/2021 and surgery w/ Dr. Cuevas on 06/08/2021. RECENT ILLNESS: Serious illness or hospitalization within the last six months. No STOP-BANG Row Name Office Visit from 05/09/[facility] in [facility] Pre-Surgical Evaluation History of sleep apnea? No Snoring Yes Tired/Fatigued No Observed Apnea No Pressure: Hypertension No BMI greater than 35 0 Age greater than 50 1 Neck circ greater than 40cm (15.75 ) No Gender male? 1 Score 3 Patient informed he is at risk for sleep apnea and declined sleep study referral. EXERCISE CAPACITY: 4-10 mets. Patient states he can walk 2 blocks without difficulty. SOCIAL HISTORY: Social History Tobacco Use Smoking status: Never Smoker Smokeless tobacco: Never Used has no history on file for drug use. MEDICAL HISTORY: No past medical history on file. SURGICAL HISTORY: No past surgical history on file. PROBLEM LIST: Patient Active Problem List: FH: colon cancer [Z80.0] History of colonic polyps [Z86.010] Erectile disorder, acquired, situational, mild [F52.21] Nocturia [R35.1] Lumbar arthropathy [M47.816] Acute diverticulitis [K57.92] Black stool [K92.1] Change in bowel habits [R19.4] FAMILY HISTORY: No family history on file. ANESTHESIA REVIEW OF SYSTEMS: Eyes/ENT: Eye Glasses, start of cataracts, snoring Teeth: Broken and missing teeth--undergoing extensive dental work and he has a right upper dental post Pulmonary: Negative Cardio-vascular: HLD and denies CP, SOB, BUNCH, Syncope or palpitations G.I./ Hepatic: acute diverticulitis, black stool, change in bowel habits, s/p colonoscopy, hepatic steatosis (elevated ALT), idiopathic chronic pancreatitis Renal/: nocturia, s/p cystoscopy Neurological: Headaches Gynecological: N/A Psychiatric: Rare panic attacks Musculoskeletal: Negative Endocrine: Negative Hematologic: Negative Constitutional: Negative Skin: Intact and right foot toenail fungus PREVIOUS ANESTHETIC COMPLICATIONS: Yes-dizziness FAMILY HISTORY OF ANESTHETIC COMPLICATIONS: No PHYSICAL EXAM: Eyes: PERRL and EOM's intact ENT: Mucosa normal, Neck supple, Carotids normal pulse without bruits and Thyroid normal Pulmonary: Chest clear to auscultation bilaterally Cardiovascular: RRR with S1S2 and No murmurs, gallops, or rubs Abdomen: Soft and non-tender and Bowel sounds normal Extremities: No gross or obvious abnormalities Neurologic: Awake, alert, oriented, No motor deficits and Sensation grossly intact Psychiatric: alert and oriented to person, place and time, Appropriate mood/affect Skin: No gross or obvious abnormalities on visible skin AIRWAY EXAM: Mallampati score: 1 TMD: Adequate Neck Extension/ Flexion: Adequate Mouth Opening: Adequate Dentition: Missing teeth Micrognathia/Overbite: No PAIN ASSESSMENT: Severity: 0 Location: N/A LABORATORY DATA: Type & Screen None CBC (last 3 years, up to 5 values) WBC RBC Hgb Hct MCV RDW Plt 04/25/21 1428 6.1 4.65 15.1 43.8 94 13.0 156 03/17/21 0936 9.4 4.56 14.9 43.7 96 12.5 162 12/16/20 0755 6.4 4.68 15.4 44.1 94 12.7 164 Basic Metabolic Panel Na K Cl CO2 Gap Glu BUN Cr Ca 04/25/21 1428 139 4.3 105 25 13 81 14 1.12 10.5 03/17/21 0936 137 4.1 101 30 10 135 13 1.25 9.8 12/16/20 0755 138 4.7 104 26 13 132 16 1.12 9.4 Basic Metabolic Panel None PT/PTT/INR (last 3 years, up to 5 values) None Arterial Blood Gases None No result for BNP LFT's (last 3 years, up to 5 values) T Prot Albumin D Bili T Bili Alk Phos ALT AST 04/25/21 1428 7.4 4.7 0.10 0.6 87 50 29 03/17/21 0936 7.3 4.1 0.20 1.1 82 22 13 TESTS REVIEWED: CXRay: 04/25/2021 FINDINGS: Lines, tubes, and devices: None. Lungs and pleura: No focal pulmonary consolidation, effusion or pneumothorax. Cardiomediastinal silhouette: Normal cardiomediastinal silhouette. Musculoskeletal: Unremarkable. IMPRESSION:No acute cardiopulmonary abnormality identified. EK04/25/2021 Normal sinus rhythm Normal ECG No previous ECGs available Confirmed by JEN AVILA ([id number]) on 04/26/2021 2:17:49 PM ECHO: Last Echocardiogram: none found going back to 04/19/2020 No results found for this basename: LVEF Stress test date: Last StressTest: none found going back to 04/19/2020 CURRENT MEDICATION LIST: Current Outpatient Medications Medication Sig Dispense Refill Saccharomyces boulardii (Probiotic) 250 MG CAPS Take 1 Capsule by mouth 2 times daily. 60 Capsule 3 famotidine (PEPCID) 20 MG tablet Take 1 Tablet by mouth 2 times daily as needed. 60 Tablet 2 ondansetron (Zofran ODT) 4 MG disintegrating tablet Take 1 Tablet by mouth every 6 hours as needed for Nausea (Vomiting). Place 1 tablet under tongue as needed for nausea. 20 Tablet 0 Remington-3 Fatty Acids (Fish Oil) 1000 MG CAPS Take by mouth. tadalafil (CIALIS) 10 MG tablet Take 1 Tablet by mouth as needed for Erectile Dysfunction. 30 minutes prior to anticipated sexual activity as one single dose and not more than once daily. 20 Tablet 2 No current facility-administered medications for this visit. CURRENT MEDICATIONS: Aspirin: No NSAIDS: No Other Antiplatelet Medication: No Anticoagulants: No Steroids: No PATIENT MEDICATION INSTRUCTIONS: On the morning of your surgery please take only the following medications, with a small sip of water: See patient instruction for details LABS, TESTS, CONSULTS ORDERED: No orders or meds were signed during this encounter PLAN: Documentation complete. Labs, Images, and Medications reviewed, and patient questions answered. Interviewer signature: MARGAERTTE Crowe 8:29 AM 05/09/2021 [facility] Diagnosis Acute diverticulitis Black stool Nonspecific abnormal finding in stool contents Change in bowel habits Other symptoms involving digestive system Preop examination- Primary Preoperative examination, unspecified Body mass index (BMI) 27.0-27.9, adult Acute diverticulitis Black stool Nonspecific abnormal finding in stool contents Change in bowel habits Other symptoms involving digestive system [facility] Diagnosis Acute diverticulitis Black stool Nonspecific abnormal finding in stool contents Change in bowel habits Other symptoms involving digestive system Idiopathic chronic pancreatitis (HCC) Acute diverticulitis Black stool Nonspecific abnormal finding in stool contents Change in bowel habits Other symptoms involving digestive system [facility] Diagnosis Acute diverticulitis Black stool Nonspecific abnormal finding in stool contents Change in bowel habits Other symptoms involving digestive system Encounter for laboratory testing for severe acute respiratory syndrome coronavirus 2 (SARS-CoV-2)- Primary Acute diverticulitis Black stool Nonspecific abnormal finding in stool contents Change in bowel habits Other symptoms involving digestive system [facility] Diagnosis Acute diverticulitis Black stool Nonspecific abnormal finding in stool contents Change in bowel habits Other symptoms involving digestive system Encounter for laboratory testing for severe acute respiratory syndrome coronavirus 2 (SARS-CoV-2)- Primary Acute diverticulitis Black stool Nonspecific abnormal finding in stool contents Change in bowel habits Other symptoms involving digestive system [facility]* Diagnosis Gastroesophageal reflux disease, unspecified whether esophagitis present- Primary Rash of back Duodenitis Duodenitis without mention of hemorrhage Hyperlipidemia, unspecified hyperlipidemia type Elevated LFTs Other abnormal blood chemistry Body mass index (BMI) 27.0-27.9, adult [facility]* Diagnosis Abdominal bloating- Primary Flatulence, eructation, and gas pain Gastroesophageal reflux disease, unspecified whether esophagitis present Hyperlipidemia, unspecified hyperlipidemia type Elevated LFTs Other abnormal blood chemistry Body mass index (BMI) 28.0-28.9, adult [facility]* Diagnosis Rash of back Gastroesophageal reflux disease, unspecified whether esophagitis present Duodenitis Duodenitis without mention of hemorrhage Hyperlipidemia, unspecified hyperlipidemia type Elevated LFTs Other abnormal blood chemistry [facility]* Diagnosis Bloating- Primary Flatulence, eructation, and gas pain Flatus Flatulence, eructation, and gas pain Hepatic steatosis Other chronic nonalcoholic liver disease Loose stools Abnormal feces Body mass index (BMI) 28.0-28.9, adult [facility]* Diagnosis Bloating- Primary Flatulence, eructation, and gas pain Flatus Flatulence, eructation, and gas pain Hepatic steatosis Other chronic nonalcoholic liver disease Loose stools Abnormal feces Body mass index (BMI) 28.0-28.9, adult [facility]* Diagnosis Elevated LFTs- Primary Other abnormal blood chemistry [facility]* Diagnosis Erectile disorder due to medical condition in male- Primary [facility]* Diagnosis Hepatic steatosis- Primary Other chronic nonalcoholic liver disease [facility]* Diagnosis Hepatic steatosis- Primary Other chronic nonalcoholic liver disease [facility]* Diagnosis Erectile disorder due to medical condition in male- Primary [facility]* Diagnosis Seasonal allergic rhinitis, unspecified trigger- Primary [facility] Diagnosis Hyperlipidemia, unspecified hyperlipidemia type- Primary Gastroesophageal reflux disease, unspecified whether esophagitis present Duodenitis Duodenitis without mention of hemorrhage Elevated LFTs Other abnormal blood chemistry Erectile disorder due to medical condition in male Elevated blood sugar Other abnormal glucose Body mass index (BMI) 28.0-28.9, adult [facility]* Diagnosis Hyperlipidemia, unspecified hyperlipidemia type- Primary Gastroesophageal reflux disease, unspecified whether esophagitis present Duodenitis Duodenitis without mention of hemorrhage Elevated LFTs Other abnormal blood chemistry Erectile disorder due to medical condition in male Elevated blood sugar Other abnormal glucose Body mass index (BMI) 28.0-28.9, adult documented in this encounter [facility] Reason for Referral Specialty Diagnoses / Procedures Referred By Harvinder goodson Referred To Contact Radiology Diagnoses Idiopathic chronic pancreatitis (HCC) Procedures MR CHOLANG/PANCREAS (MRCP) W/+W/O Gen Cuevas MD [address] [place] [address] [facility] MRI [address] [place] [address] Referral ID Status Reason Start Date Expiration Date V isits Requested Visits Authorized [id number] Closed Transfer of Care-[facility] 05/03/2021 06/02/2021 1 1 Specialty Diagnoses / Procedures Referred By Harvinder goodson Referred To Contact Diagnoses Erectile disorder due to medical condition in male Anton Walton MD [address] [place] [address] Referral ID Status Reason Start Date Expiration Date Visits Re quested Visits Authorized [id number] Denied 3 3 Summary Purpose Family History No Family History Records FoundNo Family History Records Found Advance Directives No Advanced Directives Records FoundNo Advanced Directives Records Found Additional Source Comments Care Teams (unrecognized sec tion and content) Overhead Foreman Relationship Specialty Start Date End Date Anton Walton MD [address] [place] [address] [phone] PCP - General Geriatrics 12/15/20 [facility], [address] [address] Physician Physical Medicine & Rehab/PM&R 06/11/20 Gen Cuevas MD [address] [place] [address] 18172 Physician Gastroenterology 04/09/21 Overhead Foreman Relationship Specialty Start Date End Date Anton Walton MD [address] [place] [address] 25245 PCP - General Geriatrics 12/15/20 [facility], [address] [address] Physician Physical Medicine & Rehab/PM&R 06/11/20 Gen Cuevas MD [address] [place] [address] 79887 Physician Gastroenterology 04/09/21 Overhead Foreman Relationship Specialty Start Date End Date Anton Walton MD [address] [place] [address] 15743 PCP - General Geriatrics 12/15/20 [facility], [address] [address] Physician Physical Medicine & Rehab/PM&R 06/11/20 Gen Cuevas MD [address] [place] [address] 25967 Physician Gastroenterology 04/09/21 Overhead Foreman Relationship Specialty Start Date End Date Anton Walton MD [address] [place] [address] [phone] PCP - General Geriatrics 12/15/20 Tadeo Denis DO [address] [place] [address] 39252 Physician Physical Medicine & Rehab/PM&R 06/11/20 Gen Cuevas MD [address] [place] [address] 23710 Physician Gastroenterology 04/09/21 Overhead Foreman Relationship Specialty Start Date End Date Anton Walton MD [address] [place] [address] 90809 PCP - General Geriatrics 12/15/20 Tadeo Denis DO [address] [place] [address] 9[address]80 Physician Physical Medicine & Rehab/PM&R 06/11/20 Gen Cuevas MD [address] [place] [address] 28373 Physician Gastroenterology 04/09/21 Overhead Foreman Relationship Specialty Start Date End Date Antno Walton MD [address] [place] [address] 67896 PCP - General Geriatrics 12/15/20 Tadeo Denis DO [address] [place] [address] 80519 Physician Physical Medicine & Rehab/PM&R 06/11/20 Gen Cuevas MD [address] [place] [address] 68447 Physician Gastroenterology 04/09/21 Overhead Foreman Relationship Specialty Start Date End Date Anton Walton MD [address] [place] [address] 69475 PCP - General Geriatrics 12/15/20 Tadeo Denis DO [address] [place] [address] 51179 Physician Physical Medicine & Rehab/PM&R 06/11/20 Gen Cuevas MD [address] [place] [address] 36698 Physician Gastroenterology 04/09/21 Overhead Foreman Relationship Specialty Start Date End Date Anton Walton MD [address] [place] [address] 04643 PCP - General Geriatrics 12/15/20 Tadeo Denis DO [address] [place] [address] 57903 Physician Physical Medicine & Rehab/PM&R 06/11/20 Gen Cuevas MD [address] [place] [address] 99417 Physician Gastroenterology 04/09/21 Overhead Foreman Relationship Specialty Start Date End Date Anton Walton MD [address] [place] [address] 73605 PCP - General Geriatrics 12/15/20 Tadeo Denis DO [address] [place] [address] 97705 Physician Physical Medicine & Rehab/PM&R 06/11/20 Gen Cuevas MD [address] [place] [address] 11830 Physician Gastroenterology 04/09/21 Overhead Foreman Relationship Specialty Start Date End Date Anton Walton MD [address] [place] [address] 71327 PCP - General Geriatrics 12/15/20 [facility] [address] [place] [address]125 Physician Physical Medicine & Rehab/PM&R 06/11/20 Gen Cuevas MD [address] [place] [address] 26423 Physician Gastroenterology 04/09/21 Overhead Foreman Relationship Specialty Start Date End Date Anton Walton MD [address] [place] [address] 20074 PCP - General Geriatrics 12/15/20 [facility], [address] [address] Physician Physical Medicine & Rehab/PM&R 06/11/20 Gen Cuevas MD [address] [place] [address] 81837 Physician Gastroenterology 04/09/21 Overhead Foreman Relationship Specialty Start Date End Date Anton Walton MD [address] [place] [address] 81612 PCP - General Geriatrics 12/15/20 [facility] [address] [place] [address] 08415 Physician Physical Medicine & Rehab/PM&R 06/11/20 Gen Cuevas MD [address] [place] [address] 43415 Physician Gastroenterology 04/09/21 Kimberly Su APRN-BLAYNE [address] [place] [address] [place] [address] OIL HEATERMAN Gastroenterology 12/10/21 Overhead Foreman Relationship Specialty Start Date End Date Anton Walton MD [address] [place] [address] 93225 PCP - General Geriatrics 12/15/20 [facility], [address] [address] Physician Physical Medicine & Rehab/PM&R 06/11/20 Gen Cuevas MD [address] [place] [address] 60693 Physician Gastroenterology 04/09/21 Kimberly Su APRN-MANAGER [employer]IGHT [address] [place] [address] [place] [address] OIL HEATERMAN Gastroenterology 12/10/21 Overhead Foreman Relationship Specialty Start Date End Date Anton Walton MD [address] [place] [address] 89752 PCP - General Geriatrics 12/15/20 [facility], [address] [address] Physician Physical Medicine & Rehab/PM&R 06/11/20 Gen Cuevas MD [address] [place] [address] 79538 Physician Gastroenterology 04/09/21 Kimberly Su APRN-MANAGER FLIGHT [address] [place] [address] [place] [address] OIL HEATERMAN Gastroenterology 12/10/21 Overhead Foreman Relationship Specialty Start Date End Date Anton Walton MD [address] [place] [address] 06328 PCP - General Geriatrics 12/15/20 Tadeo Denis DO [address] [place] [address] 0[address]16 Physician Physical Medicine & Rehab/PM&R 06/11/20 Gen Cuevas MD [address] [place] [address] 89702 Physician Gastroenterology 04/09/21 Kimberly Su, GIFT SHOP ASSISTANT-MANAGER [employer]IGHT [address] [place] [address] [place] [address] OIL HEATERMAN Gastroenterology 12/10/21 Overhead Foreman Relationship Specialty Start Date End Date Anton Walton MD [address] [place] [address] 22190 PCP - General Geriatrics 12/15/20 Tadeo Denis DO [address] [place] [address] 51899 Physician Physical Medicine & Rehab/PM&R 06/11/20 Gen Cuevas MD [address] [place] [address] 76226 Physician Gastroenterology 04/09/21 Kimberly Su, GIFT SHOP ASSISTANT-MANAGER [employer]IGHT [address] [place] [address] [place] [address] OIL HEATERMAN Gastroenterology 12/10/21 Overhead Foreman Relationship Specialty Start Date End Date Anton Walton MD [address] [place] [address] 91376 PCP - General Geriatrics 12/15/20 Tadeo Denis DO [address] [place] [address] 34191 Physician Physical Medicine & Rehab/PM&R 06/11/20 Gen Cuevas MD [address] [place] [address] 35862 Physician Gastroenterology 04/09/21 Kimberly Su APRN-MANAGER FLIGHT [address] [place] [address] [place] [address] OIL HEATERMAN Gastroenterology 12/10/21 Overhead Foreman Relationship Specialty Start Date End Date Torsten Mosqueda MD PCP - General Internal Medicine 02/09/16 Overhead Foreman Relationship Specialty Start Date End Date Anton Walton MD [address] [place] [address]34 PCP - General Geriatrics 12/15/20 Tadeo Denis DO [address] [place] [address] 34472 Physician Physical Medicine & Rehab/PM&R 06/11/20 Gen Cuevas MD [address] [place] [address] 49164 Physician Gastroenterology 04/09/21 Kimberly Su APRN-MANAGER [employer] [address] [place] [address] [place] [address] OIL HEATERMAN Gastroenterology 12/10/21 Overhead Foreman Relationship Specialty Start Date End Date Anton Walton MD [address] [place] [address]15 PCP - General Geriatrics 12/15/20 Tadeo Denis DO [address] [place] [address] 74832 Physician Physical Medicine & Rehab/PM&R 06/11/20 Gen Cuevas MD [address] [place] [address] 09044 Physician Gastroenterology 04/09/21 Kimberly Su APRN-MANAGER [employer]IGHT [address] [place] [address] [place] [address] OIL HEATERMAN Gastroenterology 12/10/21 Overhead Foreman Relationship Specialty Start Date End Date Anton Walton MD [address] [place] [address]7714 PCP - General Geriatrics 12/15/20 Tadeo Denis DO [address] [place] [address] 21437 Physician Physical Medicine & Rehab/PM&R 06/11/20 Gen Cuevas MD [address] [place] [address] 86626 Physician Gastroenterology 04/09/21 Kimberly Su APRN-MANAGER [employer]IGHT [address] [place] [address] [place] [address] OIL HEATERMAN Gastroenterology 12/10/21 Overhead Foreman Relationship Specialty Start Date End Date Anton Walton MD [address] [place] [address]681 PCP - General Geriatrics 12/15/20 Sarah DenisedDO [address] [place], [place] [id number] Physician Physical Medicine & Rehab/PM&R 06/11/20 Gen Cuevas MD [address] [place] [address] Physician Gastroenterology 04/09/21 Kimberly Su, GIFT SHOP ASSISTANT-MANAGER FLIGHT [address] [place] [address] OIL HEATERMAN Gastroenterology 12/10/21 Reason for Visit (unrecogniz ed section and content) Specialty Diagnoses / Procedures Referred By Contac t Referred To Contact Radiology Diagnoses Idiopathic chronic pancreatitis (HCC) Procedures MR CHOLANG/PANCREAS (MRCP) W/+W/O Gen Cuevas MD [address] [place] [address] [facility] MRI [address] [place] [address] Referral ID Status Reason Start Date Expiration Date V isits Requested Visits Authorized [id number] Closed Transfer of Care-[facility] 05/03/2021 06/02/2021 1 1 Reason Onset Date Comments Discuss results test/procedures 06/09/2021 reference 99-06/14/21 06/09/2021 Reason Comments Discuss results test/procedures Reason Comments Refill Reason Comments Consult With Provider F/u Reason Comments CONSULT, NEW GI Specialty Diagnoses / Procedures Referred By Contac t Referred To Contact Gastroenterology Diagnoses Anton Echavarria MD [address] [place], [place] [id number] S GASTROENTEROLOGY [address] [place] [address] Referral ID Status Reason Start Date Expiration Date V isits Requested Visits Authorized [id number] Authorized 11/28/2021 11/28/2022 3 3 Reason Onset Date Comments Refill 12/19/2021 Reason Onset Date Comments Refill 05/27/2023 Reason Comments Sinus Problem Sinus pressure, ches t congestion X 2 weeks Reason Comments dry cough Source Comments (unrecognize d section and content) In the event this informatio n is protected by the Federal Confidentiality of Alcohol and Drug Abuse Patient Records regulations: The Federal rules restrict any use of the information to criminally investigate or prosecute any alcohol or drug abuse patient.[facility] (unrecognized sect ion and content) No Status Records FoundNo Status Records Found INFORMATION SOURCE (unrecogn ized section and content) DATE CREATED AUTHOR 06/22/2023 [facility] DATE CREATED AUTHOR 'S CARO MAC 08/05/2023 [facility] System FOR RECORDS PERTAINING TO PATIENTS WHO ARE OR HAVE BEEN ENROLLED IN A CHEMICAL DEPENDENCY/SUBSTANCEABUSE PROGRAM, SOME INFORMATION MAY BE OMITTED. This clinical summary was aggregated from multiple sources. Caution should be exercised in using it in the provision of clinical care. This summary normalizes information from multiple sources, and as a consequence, information in this document may materially change the coding, format and clinical context of patient data. In addition, data may be omitted in some cases. CLINICAL DECISIONS SHOULD BE BASED ON THE PRIMARY CLINICAL RECORDS. [facility]. provides no warranty or guarantee of the accuracy or completeness of information in this document.
== END 2023-10-01 10:01 | disposition home or self-care (01) ==
LOC: EC 10:00
PROVIDERS: Visit Provider Orthopaedic Surgery
DX: S52.125D Nondisplaced fracture of head of left radius, subsequent encounter for closed fracture with routine healing (principal)
CPT/HCPCS: 73080

== ENCOUNTER 2023-10-29 10:02 | Outpatient (OUT) | payer OTHER, SELFPAY ==
--- OUTSIDE RECORDS SUMMARY | 2023-10-25 14:35 | XMS_ITS | CCD ---
Author Organization [facility] Care Team Providers Care Assurance Officer Name Role Phone Placeway DO, Tadeo Unavailable Anton Walton MD Primary Care Provider Gen Cuevas MD Unavailable Placeway DO, Tadeo Unavailable Anton Walton MD Primary Care Provider Gen Cuevas MD Unavailable Kimberly Rajan Unavailable Placeway DO, Tadeo Unavailable Anton Walton MD Primary Care Provider Gen Cuevas MD Unavailable Kimberly Rajan Unavailable Torsten Mosqueda MD Primary Care Provider TORSTEN MOSQUEDA Primary Care Unavailable PROVIDER, UNKNOWN [...] Seasonal allergic rhinitis, unspecified trigger Use 1 [place] in each nostril once daily. 11.1 mL [...] mg oral capsule (14 sources) End: 2 [place]-3 Fatty Acids (Fish Oil) 1000 MG CAPS [...] Interpretation Reference Range Facility Patient Instructionson 08-02 Manager Warehouse Authentication Interface Message Text RSV vaccine recommended from pharmacy. Normal [facility] [employer] [facility] Progress Noteson 08-03-2023 Manager Warehouse Authentication Interface Message Text Follow up. History [...] lipitor. counseled on covid booster. daughter teaching macedonian in [place]. 11/01/21 63 year old male [...] at this time. Pepcid as needed. Wagu beef,/LIBCAST, [place], beef delicious . Lipids (last 3 [...] 60 min Stress: Stress Concern Present (08/02/2023) [place] [employer] - Occupational Stress Questionnaire Feeling of Stress : To some extent Social Connections: Socially Isolated (08/02/2023) Social Connection and Isolation Panel [NHANES] Frequency of Communication with Friends and Family: Three times a week Frequency of Social Gatherings with Friends and Family: Twice a week Attends Sabianist Services: Never Active Member of Clubs or Organizations: No Attends Club or Organization Meetings: Never Marital Status: Intimate Partner Violence: Not At Risk (08/02/2023) Humiliation, Afraid, Rape, and Kick questionnaire Fear of Current or Ex-Partner: No Emotionally Abused: No Physically Abused: No Sexually Abused: No Family History: Mom and dad passe (more content not included)... Normal [employer] [facility] Manager Warehouse Authentication Interface Message Text Patient was identified by name and date of . Dolly WoodardoPatient was identified by name and date of . Patient at risk for falls:No Falls Risk protocol implemented: No Shingles vaccine was given. VIS sheet was given. Normal [facility] [employer] [facility] Kelsie 06-20-2023 MATT Office Visit (EXPNOL) SOTOSERGEI ([id number]) 1960 M Date Time Provider Department 06/20/23 12:20 PM KRISKRYSTA GARCIA JOANNE During your visit today, we recorded the following information about you: Temperature Pulse Respiration Blood pressure 98 degrees 72/minute 16/minute 133/80 Weight 93.8 kg Ce HyattAPRN. harjitRISK CONTROL SPECIALIST 06/20/2023 1:55 PM Signed Increase fluid intake [...] may need to follow up with an steamer blocker and/or ENT - Go to the ER if you begin to experience any severe symptoms, such as facial, eye, or cheek swelling on one side of your face, labored breathing/difficulty breathing, shortness of breath or chest pain, stiffness in neck, difficulty waking up or lethargy, severe headaches, or a rash that looks like a bruise Bulat, Krysta, FINISHED CIGAR MAKER.BLAYNE 06/20/2023 2:31 PM Signed This note was created using Paymater[employer]. Subjective Sergei Soto is a 63 year old male. Patient presents with concerns for sinus pressure and thick nasal mucous x 2 weeks. Patient reports an initial iprovement of symptoms before a decline the last few days. Patient takes Claritin with little impact. Denies any fever or chills. The history is provided by the patient. No client specialist was used. Sinus Problem This is a [...] and Medro (more content not included)... Normal [facility] Telephone Encounteron 2023 Manager Warehouse Authentication Interface Message Text Patient has not been seen by this Provider or Department in more than 1 year. Pharmacy has sent a [employer] message to the patient to schedule an office visit. Thank you Normal [employer] [facility] LIVER ELASTOGRAPHYon 022 Tiara Blackburn APRN-CNP 12/19/2021 4:35 PM Velocity Controlled Transient Elastography (Fibroscan) Roving Sizer: Suzette Tamayo Attending: Tiara Blackburn APRN-CNP Patient was identified via name and . Sergei Soto presents to endoscopy suite for VCTE. Referring Provider: Self Patient Diagnosis: Hepatic steatosis [798258] Two Pt identifiers where confirmed. Pt procedure [...] to hepatology. Interpreting Provider: Tiara Blackburn, MICHAEL-BLAYNE [facility] HEPATIC FUNCTION PANELOrdere d By: Wisam Devries on 12-16-2021 Albumin [Mass/Vol] 4.6 g/dL 3.4 - 5.1 g/dL [facility] ALP [Catalytic activity/Vol] 83 U/L [facility] ALT [Catalytic activity/Vol] 105 U/L High [facility] AST [Catalytic activity/Vol] 56 U/L High [facility] Bilirubin [Mass/Vol] 1.5 mg/dL 0.1 - 1 .5 mg/dL [facility] Bilirubin.direct [Mass/Vol] 0.30 mg/dL 0.10 - 0.30 mg/dL [facility] Interpretation and review of laboratory results Abnormal [facility] Protein [Mass/Vol] 7.2 g/dL 5.7 - 8.1 g/dL [facility] Laboratory - Chemistry and C hemistry - challengeon 11-30-2021 IgA [Mass/Vol] 121 mg/dL 78 - 391 mg/dL [facility] ealth CRP [Mass/Vol] 0.9 mg/dL High NINF - 0.8 mg/dL [facility] Laboratory - Serology - non- microon 11-30-2021 tTG IgA IA Qn (S) U/mL NINF - 15. 0 U/mL [facility] No Panel Informationon 11-30 Interpretation and review of laboratory results Normal [facility] Interpretation and review of laboratory results Abnormal [facility] Basic metabolic 2000 panelon 11-02-2021 Anion gap [...] (S/P/Bld) [Vol rate/Area] 64 mL/min/{1.73_m2} - PINF [facility] Comment on above: 2020 CKD EPI [...] Inclusion of Race in Diagnosing Kidney Disease. [place] Journal of Kidney Diseases 202;79(2):268-88.e1. 2. N Engl J Med 2020 Vol. 385 Issue 19 Pages [id number] Glucose [Mass/Vol] 93 mg/dL 80 - 116 mg/dL [facility] Interpretation and review of laboratory results Normal [facility] Potassium [Moles/Vol] 4.0 mmol/L 3.3 - 5.3 mmol/L [facility] Sodium [Moles/Vol] 138 mmol/L 135 - 148 mmol/L [facility] Urea nitrogen [Mass/Vol] 13 mg/dL 8 - 22 mg/dL [facility] HEPATIC FUNCTION PANELon Albumin [Mass/Vol] 4.6 g/dL 3.4 - 5.1 g/dL [facility] ALP [Catalytic activity/Vol] 91 U/L [facility] ALT [Catalytic activity/Vol] 71 U/L High [facility] AST [Catalytic activity/Vol] 57 U/L High [facility] Bilirubin [Mass/Vol] 1.2 mg/dL 0.1 - 1 .5 mg/dL [facility] Bilirubin.direct [Mass/Vol] 0.20 mg/dL 0.1 - 0.3 mg/dL [facility] Interpretation and review of laboratory results Abnormal [facility] Protein [Mass/Vol] 7.3 g/dL 5.7 - 8.1 g/dL [facility] Lipid 1996 panelon Cholesterol [Mass/Vol] 140 mg/dL [...] Loss of signal is seen on the [id number] images compared to the in-phase images consistent [...] Loss of signal is seen on the [id number] images compared to the in-phase images consistent [...] a polyp versus a lipoma. MACRO: None [facility] Radiology Study observation (narrative) [facility] MR CHOLANG/PANCREAS (MRCP) W /+W/OOrdered By: Rosemarie Purvis on 05-16-2021 [employer] Work Phone: Vital Signs Date Time Vital Sign Value Performing Clinician Faci johnsony 08-03-2023 13:25-0400 Diastolic blood pressure 66 mm[Hg] Anton Walton MD Work [facility]: [facility] 08-03-2023 13:25-0400 Systolic blood pressure 121 mm[Hg] Anton Walton MD Work Phone: [facility] 08-03-2023 13:23-0400 Body height 182.9 cm Anton Walton MD Work Phone: [facility] 08-03-2023 13:23-0400 Body mass index (BMI) [Ratio] 28.09 kg/m2 Anton Walton MD Work Phone: [facility] 08-03-2023 13:23-0400 Body temperature 98.71 [degF] Anton Walton MD Work Phone: [facility] 08-03-2023 13:23-0400 Body weight 93.94 kg Anton Walton MD Work Phone: [facility] 08-03-2023 13:23-0400 Heart rate 64 /min Anton Walton MD Work Phone: [facility] 08-03-2023 13:23-0400 Respiratory rate 18 /min Anton Walton MD Work Phone: [facility] 08-03-2023 13:23-0400 SaO2% (BldA) [Mass fraction] 99 % Anton Walton MD Work Phone: [facility] 06-20-2023 12:48-0400 Body mass index (BMI) [Ratio] 28.05 kg/m2 Krysta Bulat FINISHED CIGAR MAKER.RISK CONTROL SPECIALIST Work Phone: [facility] 06-20-2023 12:48-0400 Body temperature 98.01 [degF] Krysta Bulat FINISHED CIGAR MAKER.RISK CONTROL SPECIALIST Work Phone: [facility] 06-20-2023 12:48-0400 Body weight 93.8 kg Krysta Bulat FINISHED CIGAR MAKER.RISK CONTROL SPECIALIST Work Phone: [facility] 06-20-2023 12:48-0400 Diastolic blood pressure 80 mm[Hg] Krysta Bulat FINISHED CIGAR MAKER.RISK CONTROL SPECIALIST Work Phone: [facility] 06-20-2023 12:48-0400 Heart rate 72 /min Krysta Bulat FINISHED CIGAR MAKER.RISK CONTROL SPECIALIST Work Phone: [facility] 06-20-2023 12:48-0400 Respiratory rate 16 /min Krysta Bulat FINISHED CIGAR MAKER.RISK CONTROL SPECIALIST Work Phone: [facility] 06-20-2023 12:48-0400 SaO2% (BldA) [Mass fraction] 98 % Krysta Bulat FINISHED CIGAR MAKER.RISK CONTROL SPECIALIST Work Phone: [facility] 06-20-2023 12:48-0400 Systolic blood pressure 133 mm[Hg] Krysta Bulat FINISHED CIGAR MAKER.RISK CONTROL SPECIALIST Work Phone: [facility] 11-30-2021 09:37-0400 Body height 182.9 cm Kimberly Su APRN-RISK CONTROL SPECIALIST Work Phone: [facility] 11-30-2021 09:37-0400 Body mass index (BMI) [Ratio] 28.35 kg/m2 Kimberly Su APRN-RISK CONTROL SPECIALIST Work Phone: [employer] 11-30-2021 09:37-0400 Body temperature 97.5 [degF] Kimberly Su APRN-RISK CONTROL SPECIALIST Work Phone: [facility] 11-30-2021 09:37-0400 Body weight 94.8 kg Kimberly Su APRN-RISK CONTROL SPECIALIST Work Phone: [facility] 11-30-2021 09:37-0400 Diastolic blood pressure 76 mm[Hg] Kimberly Su APRN-RISK CONTROL SPECIALIST Work Phone: [employer] [facility] 11-30-2021 09:37-0400 Heart rate 76 /min Kimberly Su APRN-RISK CONTROL SPECIALIST Work Phone: [facility] 11-30-2021 09:37-0400 Respiratory rate 16 /min Kimberly Su APRN-RISK CONTROL SPECIALIST Work Phone: [facility] 11-30-2021 09:37-0400 Systolic blood pressure 144 mm[Hg] Kimberly Su APRN-RISK CONTROL SPECIALIST Work Phone: [facility] 11-01-2021 15:27-0400 Body height 182.9 cm Anton Walton MD Work Phone: [facility] 11-01-2021 15:27-0400 Body mass index (BMI) [Ratio] 28.21 kg/m2 Anton Walton MD Work Phone: [facility] 11-01-2021 15:27-0400 Body temperature 97.39 [degF] Anton Walton MD Work Phone: [facility] 11-01-2021 15:27-0400 Body weight 94.35 kg Anton Walton MD Work Phone: [facility] 11-01-2021 15:27-0400 Diastolic blood pressure 67 mm[Hg] Anton Walton MD Work Phone: [facility] 11-01-2021 15:27-0400 Heart rate 59 /min Anton Walton MD Work Phone: [facility] 11-01-2021 15:27-0400 Respiratory rate 16 /min Anton Walton MD Work Phone: [facility] 11-01-2021 15:27-0400 SaO2% (BldA) [Mass fraction] 100 % Anton Walton MD Work Phone: [facility] 11-01-2021 15:27-0400 Systolic blood pressure 133 mm[Hg] Anton Walton MD Work Phone: [facility] 07-22-2021 10:52-0400 Body mass index (BMI) [Ratio] 27.67 kg/m2 Anton Walton MD Work Phone: [facility] 07-22-2021 10:52-0400 Body temperature 97.59 [degF] Anton Walton MD Work Phone: [facility] 07-22-2021 10:52-0400 Body weight 92.53 kg Anton Walton MD Work Phone: [facility] 07-22-2021 10:52-0400 Diastolic blood pressure 67 mm[Hg] Anton Walton MD Work Phone: [facility] 07-22-2021 10:52-0400 Heart rate 89 /min Anton Walton MD Work Phone: [facility] 07-22-2021 10:52-0400 Systolic blood pressure 126 mm[Hg] Anton Walton MD Work Phone: [facility] 05-16-2021 15:45-0400 Diastolic blood pressure 70 mm[Hg] [address] [facility] 05-16-2021 15:45-0400 Heart rate 76 /min [facility] 05-16-2021 15:45-0400 Respiratory rate 15 /min [facility] 05-16-2021 15:45-0400 SaO2% (BldA) [Mass fraction] 96 % [address] 05-16-2021 15:45-0400 Systolic blood pressure 130 mm[Hg] [address] 05-16-2021 13:02-0400 Body height 182.9 cm 2 [facility] 05-16-2021 13:02-0400 Body mass index (BMI) [Ratio] 27.53 kg/m2 [address] 05-16-2021 13:02-0400 Body temperature 98.8 [degF] 2 [facility] 05-16-2021 13:02-0400 Body weight 92.08 kg 2 [facility] 05-09-2021 08:20-0400 Body height 182.9 cm Martyjuan antonio Bryan FINISHED CIGAR MAKER-RISK CONTROL SPECIALIST Work Phone: [employer] 05-09-2021 08:20-0400 Body mass index (BMI) [Ratio] 27.94 kg/m2 Yazan Bryan FINISHED CIGAR MAKER-RISK CONTROL SPECIALIST Work Phone: [employer] 05-09-2021 08:20-0400 Body temperature 96.6 [degF] Yazan Marylidya FINISHED CIGAR MAKER-RISK CONTROL SPECIALIST Work Phone: [employer] 05-09-2021 08:20-0400 Body weight 93.44 kg Yazan Marylidya FINISHED CIGAR MAKER-RISK CONTROL SPECIALIST Work Phone: [employer] 05-09-2021 08:20-0400 Diastolic blood pressure 68 mm[Hg] Martyjuan antonio Bryan FINISHED CIGAR MAKER-RISK CONTROL SPECIALIST Work Phone: [employer] 05-09-2021 08:20-0400 Heart rate 70 /min Yazan Bryan FINISHED CIGAR MAKER-RISK CONTROL SPECIALIST Work Phone: [employer] 05-09-2021 08:20-0400 Respiratory rate 16 /min Martyjuan antonio Bryan FINISHED CIGAR MAKER-RISK CONTROL SPECIALIST Work Phone: [employer] 05-09-2021 08:20-0400 SaO2% (BldA) [Mass fraction] 100 % Martyjuan antonio Bryan FINISHED CIGAR MAKER-RISK CONTROL SPECIALIST Work Phone: [facility] 05-09-2021 08:20-0400 Systolic blood pressure 118 mm[Hg] Yazan Marylidya FINISHED CIGAR MAKER-RISK CONTROL SPECIALIST Work Phone: [facility] Encounters Encounter Date Encounter Type Care Provider Facility Start: 08-06-2023 End: 08-06-2023 ambulatory Anton Walton MD Work Phone: [facility] Comment on above: Ciclopirox generic e finaconazole Start: 08-06-2023 End: 08-06-2023 E-mail encounter from caregiver Anton Walton MD Work Phone: [facility] Start: 08-03-2023 End: 08-03-2023 Office outpatient visit 25 minutes Anton Walton MD Work Phone: [facility] Comment on above: Hyperlipidemia, unsp ecified hyperlipidemia type (Primary Dx); Gastroesophageal reflux disease, unspecified whether esophagitis present; Duodenitis; Elevated LFTs; Erectile disorder due to medical condition in male; Elevated blood sugar; Body mass index (BMI) 28.0-28.9, adult Start: 08-03-2023 End: 08-03-2023 Periodic preventive med est patient 40-64yrs Anton Walton MD Work Phone: [facility] Comment on above: Hyperlipidemia, unsp ecified hyperlipidemia type (Primary Dx); Gastroesophageal reflux disease, unspecified whether esophagitis present; Duodenitis; Elevated LFTs; Erectile disorder due to medical condition in male; Elevated blood sugar; Body mass index (BMI) 28.0-28.9, adult Start: 08-03-2023 End: 08-03-2023 ambulatory UNKNOWN PROVIDER Facility:[facility] Start: 07-12-2023 End: 07-12-2023 Refill Anton Walton MD Work Phone: [facility] Comment on above: Refill Start: 06-20-2023 End: 06-20-2023 ambulatory TORSTEN MOSQUEDA Facility:[facility] Start: 06-20-2023 End: 06-20-2023 Office outpatient visit 15 minutes Krysta Edmar FINISHED CIGAR MAKER.RISK CONTROL SPECIALIST Work Phone: [facility] Comment on above: Seasonal allergic rh initis, unspecified trigger (Primary Dx) Start: 05-27-2023 Refill Anton Walton MD Work Phone: [facility] Comment on above: Refill Start: 03-04-2023 Letter encounter Tadeo Placewa y DO Work Phone: [facility] Start: 12-26-2021 Telephone encounter Kimberly dias FINISHED CIGAR MAKER-RISK CONTROL SPECIALIST Work Phone: [facility] Start: 12-19-2021 Refill Anton Walton MD Work Phone: [facility] Comment on above: Refill Start: 12-19-2021 End: 12-19-2021 Subsequent hospital visit by physician [facility] 1 [facility] Comment on above: Hepatic steatosis (P rimary Dx) Start: 12-16-2021 End: 12-16-2021 Clinical Support [place] [facility] Start: 11-30-2021 End: 12-01-2021 Office outpatient visit 15 minutes Kimberly Su FINISHED CIGAR MAKER-RISK CONTROL SPECIALIST Work Phone: [facility] Comment on above: Bloating (Primary Dx ); Flatus; Hepatic steatosis; Loose stools; Body mass index (BMI) 28.0-28.9, adult Start: 11-28-2021 Letter encounter Tadeo Placewa y DO Work Phone: [facility] Start: 11-01-2021 End: 11-02-2021 Office outpatient visit 25 minutes Anton Walton MD Work Phone: [facility] Comment on above: Abdominal bloating ( Primary Dx); Gastroesophageal reflux disease, unspecified whether esophagitis present; Hyperlipidemia, unspecified hyperlipidemia type; Elevated LFTs; Body mass index (BMI) 28.0-28.9, adult Start: 11-01-2021 End: 11-01-2021 Clinical Support [facility] Work Phone: [facility] Comment on above: Arrived Start: 09-06-2021 Refill Anton Walton MD Work Phone: [facility] Comment on above: Refill Start: 07-22-2021 End: 07-22-2021 Office outpatient visit 25 minutes Anton Walton MD Work Phone: [facility] Comment on above: Gastroesophageal ref lux disease, unspecified whether esophagitis present (Primary Dx); Rash of back; Duodenitis; Hyperlipidemia, unspecified hyperlipidemia type; Elevated LFTs; Body mass index (BMI) 27.0-27.9, adult Start: 06-09-2021 Telephone encounter Anton Walton MD Work Phone: [facility] Comment on above: Discuss results test /procedures; reference -06/14/21 Start: 06-03-2021 Orders Only Kimberly Su FINISHED CIGAR MAKER-RISK CONTROL SPECIALIST Work Phone: [facility] Start: 05-31-2021 Orders Only Kimberly Su FINISHED CIGAR MAKER-RISK CONTROL SPECIALIST Work Phone: [facility] Start: 05-30-2021 Orders Only Kimberly Su FINISHED CIGAR MAKER-RISK CONTROL SPECIALIST Work Phone: [facility] Start: 05-20-2021 [facility] Start: 05-18-2021 Telephone encounter Abdoulaye wise MD Work Phone: [facility] Start: 05-16-2021 End: 05-16-2021 Subsequent hospital visit by physician Farideh Hunter MD Work Phone: [facility] Comment on above: Idiopathic chronic p ancreatitis (HCC) Start: 05-09-2021 End: 05-09-2021 Office outpatient new 45 minutes Yazan Bryan FINISHED CIGAR MAKER-[facility] Work Phone: [facility] Comment on above: Preop examination (P rimary Dx); Body mass index (BMI) 27.0-27.9, adult Start: 05-09-2021 End: 05-09-2021 Preprocedural examination done Yazan Bryan FINISHED CIGAR MAKER-[facility] Work Phone: [facility] Start: 05-05-2021 Letter encounter Tadeo Placewa y DO Work Phone: [facility] Patient Access Procedures Date Procedure Procedure Detail Performing Clinician Start: 12-19-2021 Liver elastography w /o imag w/i&r Tiara Blackburn FINISHED CIGAR MAKER-[facility] Work Phone: Start: 12-16-2021 Hepatic function panel Anton Walton MD Work Phone: Start: 11-30-2021 C-reactive protein Kimberly Su FINISHED CIGAR MAKER-[facility] Work Phone: Start: 11-01-2021 Hepatic function panel Anton Walton MD Work Phone: Start: 11-01-2021 Lipoprotein dir anabel high density cholesterol Anton Walton MD Work Phone: Start: 11-01-2021 Lipid 1996 panel - S annalee or Plasma Krysta Bulat FINISHED CIGAR MAKER.[facility] Work Phone: Start: 06-08-2021 Colonoscopy Tadeo Plac eway DO Work Phone: Start: 05-16-2021 Mri abdomen w/o & w/contrast material Gen Cuevas MD Work Phone: Plan of Treatment Date Care Activity Detail Author Start: 06-09-2031 Screening for malignant neoplasm of colon [facility] Start: 11-01-2026 [facility] Start: 06-09-2026 Lipid panel Cholesterol [facility] Start: 03-10-2026 [facility] Start: 03-10-2026 Urine microalbumin profile DTaP,Tdap,Td Vaccine (2 - T d or Tdap) [facility] Start: 12-16-2025 Lipid panel Cholesterol [facility] Start: 12-16-2025 Prostate specific antigen measurement Prostate Cancer Screening Discussion [facility] Start: 11-01-2024 Diabetes Screening Diabetes Screening [facility] Start: 11-06-2023 Influenza vaccination Influenza Vaccine (#1) [facility] Start: 10-07-2023 Influenza vaccination Influenza Vaccine (Season Ended) [facility] Start: 09-28-2023 Shingles (RZV) Vaccine (2 of 2) Shingles (RZV) Vaccine (2 of 2) [facility] Start: 09-14-2023 End: 09-14-2023 Patient encounter procedure 09/14/2023 4:20 PM EDT Office Visit [facility] [address] [place] [id number] Anton Walton MD [address] [place] [address] [facility] Start: 02-05-2023 Behavioral Health Screening Behavioral Health Screening [facility] Start: 10-06-2022 COVID-19 Vaccine ( season) COVID-19 Vaccine ( season) [facility] Start: 10-06-2022 Influenza vaccination Influenza Vaccine (#1) [facility] Start: 06-08-2022 Screening for malignant neoplasm of colon [facility] Start: 05-05-2022 End: 05-05-2022 Patient encounter procedure 05/05/2022 Office Visit Gerontology Anton Walton MD [address] [place] [address] [facility] Start: 03-28-2022 End: 06-25-2022 Hepatic function panel HEPATIC FUNCTION PANEL Lab Routine Hepatic steatosis Expected: 03/28/2022, Expires: 06/25/2022 [employer] Work Phone: Comment on above: Expected: 03/28/2022, Expires: Start: 12-19-2021 End: 12-19-2021 Patient encounter procedure 12/19/2021 Appointment Gastroenterology [facility] Start: 12-16-2021 Prostate specific antigen measurement Prostate Cancer Screening (shared decision making) [facility] Start: 11-30-2021 End: 01-29-2022 Assay of calprotectin fecal CALPROTECTIN, STOOL Lab Routine Loose stools Expected: 11/30/2021 (Approximate), Expires: 01/29/2022 [facility] Comment on above: Expected: 11/30/2021 (Approximate), Expi res: 01/29/2022 Start: 11-30-2021 End: 01-29-2022 Cul bact stool aerobic isol salmonella&shigell STOOL CULTURE Microbiology Routine Loose stools Expected: 11/30/2021 (Approximate), Expires: 01/29/2022 [facility] Comment on above: Expected: 11/30/2021 (Approximate), Expi res: 01/29/2022 Start: 11-30-2021 End: 01-29-2022 Elastase pancreatic fecal qual/semi-isatu PANCREATIC ELASTASE, STOOL Lab Routine Loose stools Expected: 11/30/2021 (Approximate), Expires: 01/29/2022 [facility] [employer] Work Phone: Comment on above: Expected: 11/30/2021 (Approximate), Expi res: 01/29/2022 Start: 11-30-2021 End: 01-29-2022 Fat stain feces urine/respir secretions FECAL FAT, QUALITATIVE (CRIT * Lab Routine Loose stools Expected: 11/30/2021 (Approximate), Expires: 01/29/2022 [facility] Comment on above: Expected: 11/30/2021 (Approximate), Expi res: 01/29/2022 Start: 11-30-2021 End: 01-29-2022 Iaad ia giardia GIARDIA/CRYPTO EIA Microbiology Routine Loose stools Expected: 11/30/2021 (Approximate), Expires: 01/29/2022 [facility] Comment on above: Expected: 11/30/2021 (Approximate), Expi res: 01/29/2022 Start: 11-30-2021 End: 11-30-2021 Patient encounter procedure 11/30/2021 Office Visit Gastroenterology Kimberly Su APRN-CNP [address] [place] [address] [facility] [place] [facility] Start: 11-05-2021 Influenza vaccination Influenza Vaccine (#1) [facility] Start: 11-01-2021 End: 11-01-2021 Patient encounter procedure 11/01/2021 Office Visit Gerontology Anton Walton MD [address] [place] [address] [facility] Start: 09-05-2021 End: 12-29-2021 Basic metabolic 2000 panel - Serum or Plasma BASIC METABOLIC PANEL Lab Routine Rash of back Gastroesophageal reflux disease, unspecified whether esophagitis present Duodenitis Hyperlipidemia, unspecified hyperlipidemia type Elevated LFTs Expected: 09/05/2021, Expires: 12/29/2021 [facility] Work Phone: Comment on above: Expected: 09/05/2021, Expires: 2 Start: 09-05-2021 End: 12-29-2021 Hepatic function panel HEPATIC FUNCTION PANEL Lab Routine Rash of back Gastroesophageal reflux disease, unspecified whether esophagitis present Duodenitis Hyperlipidemia, unspecified hyperlipidemia type Elevated LFTs Expected: 09/05/2021, Expires: 12/29/2021 [facility] Comment on above: Expected: 09/05/2021, Expires: 2 Start: 09-05-2021 End: 12-29-2021 Lipid 1996 panel - Serum or Plasma FULL LIPID PROFILE Lab Routine Rash of back Gastroesophageal reflux disease, unspecified whether esophagitis present Duodenitis Hyperlipidemia, unspecified hyperlipidemia type Elevated LFTs Expected: 09/05/2021, Expires: 12/29/2021 [facility] Comment on above: Expected: 09/05/2021, Expires: 2 Start: 08-31-2021 End: 08-31-2021 Evaluation and management of inpatient 08/31/2021 Office Visit Gerontology Anton Walton MD [address] [place] [address] [id number] [facility] Start: 06-08-2021 End: 06-08-2021 Admission to same day surgery center 06/08/2021 Surgery Gastroenterology Gen Cuevas MD [address] [place] [address] ESOPHAGOGASTRODUODENOSCOPY AND COLONOSCOPY [facility] Comment on above: ESOPHAGOGASTRODUODENOSCOPY AND COLONOSCO PY Start: 06-08-2021 End: 06-08-2021 ESOPHAGOGASTRODUODENOSCOPY AND COLONOSCOPY ESOPHAGOGASTRODUODENOSCOPY AND COLONOSCOPY Routine scheduled Acute diverticulitis Black stool Change in bowel habits 06/08/2021 2:00 PM EDT [facility] Start: 06-08-2021 Subsequent hospital visit by physician 06/08/2021 Hospital Encounter Gastroenterology Gen Cuevas MD [address] [place] [id number] [facility] Start: 06-03-2021 End: 07-03-2021 SARS-CoV-2 (COVID-19) RNA [Presence] in Unspecified specimen by DEMETRIS with probe detection NOVEL CORONAVIRUS (COVID-19) Lab Routine Encounter for laboratory testing for severe acute respiratory syndrome coronavirus 2 (SARS-CoV-2) Expected: 06/03/2021, Expires: 07/03/2021 [facility] Work Phone: Comment on above: Expected: 06/03/2021, Expires: Start: 06-03-2021 End: 06-03-2021 Patient encounter procedure 06/03/2021 Office Visit GerontologAnton Merchant MD [address] [place] [address] [facility] Start: 05-31-2021 End: 06-30-2021 SARS-CoV-2 (COVID-19) RNA [Presence] in Unspecified specimen by DEMETRIS with probe detection NOVEL CORONAVIRUS (COVID-19) Lab Routine Encounter for laboratory testing for severe acute respiratory syndrome coronavirus 2 (SARS-CoV-2) Expected: 05/31/2021, Expires: 06/30/2021 [facility] Work Phone: Comment on above: Expected: 05/31/2021, Expires: 2 Start: 05-30-2021 End: 06-29-2021 SARS-CoV-2 (COVID-19) RNA [Presence] in Unspecified specimen by DEMETRIS with probe detection NOVEL CORONAVIRUS (COVID-19) Lab Routine Encounter for laboratory testing for severe acute respiratory syndrome coronavirus 2 (SARS-CoV-2) Expected: 05/30/2021, Expires: 06/29/2021 [facility] Work Phone: Comment on above: Expected: 05/30/2021, Expires: Start: 05-25-2021 COVID-19 Vaccine (4 - Booster for Pfizer series) COVID-19 Vaccine (4 - Booster for Pfizer series) [facility] Start: 05-16-2021 End: 05-16-2021 Patient encounter procedure 05/16/2021 Appointment Radiology [facility] Start: 05-09-2021 End: 05-09-2021 Patient encounter procedure 05/09/2021 Office Visit Presurgical Evaluation Yazan Adams, FINISHED CIGAR MAKER-RISK CONTROL SPECIALIST [address] [facility] [place] [address] [facility] [place] [facility] Start: 03-21-2021 COVID-19 Vaccine (4 - Booster for Pfizer series) COVID-19 Vaccine (4 - Booster for Pfizer series) [facility] Start: 2020 Hepatitis B (HBV) Vaccine (optional start 60+ years) Hepatitis B (HBV) Vaccine (optional start 60+ years) [facility] Start: 2020 RSV Vaccine (1 - 1-dose 60+ series) RSV Vaccine (1 - 1-dose 60+ series) [facility] Start: 2020 RSV vaccine (optional 60+ years) RSV vaccine (optional 60+ years) [facility] Start: 02-25-2010 Measurement of occult blood in single stool specimen FIT [facility] Start: 02-25-2010 Shingrix Vaccine (1 of 2) Shingrix Vaccine (1 of 2) [facility] Start: 02-25-2010 Varicella-zoster vaccine (product) Shingles (RZV) Vaccine (1 of 2) [facility] Start: 02-25-2005 Screening for malignant neoplasm of colon [facility] Start: 02-25-1979 Hepatitis A (HAV) Vaccine (optional start 19+ years) Hepatitis A (HAV) Vaccine (optional start 19+ years) [facility] Start: 02-25-1978 Hepatitis C screening Hepatitis C Antibody [facility] Start: 02-25-1978 HIV screening HIV Screening [facility] Start: 02-25-1975 HIV screening HIV Test [facility] Assay of calprotectin fecal CALP ROTECTIN, STOOL Lab Routine Loose stools 12/14/2021 9:35 AM EST [facility] End: 12-19-2023 Basic metabolic 2000 panel - Serum or Plasma BASIC METABOLIC PANEL Lab Routine Gastroesophageal reflux disease, unspecified whether esophagitis present Duodenitis Hyperlipidemia, unspecified hyperlipidemia type Elevated LFTs Erectile disorder due to medical condition in male Elevated blood sugar 1 Occurrences starting 08/03/2023 until 12/19/2023 [facility] Comment on above: 1 Occurrences starting 08/03/2023 until 12/19/2023 End: 12-19-2023 CBC W Auto Differential panel - Blood COMPLETE BLOOD COUNT W/DIFF Lab Routine Gastroesophageal reflux disease, unspecified whether esophagitis present Duodenitis Hyperlipidemia, unspecified hyperlipidemia type Elevated LFTs Erectile disorder due to medical condition in male Elevated blood sugar 1 Occurrences starting 08/03/2023 until 12/19/2023 [facility] Comment on above: 1 Occurrences starting 08/03/2023 until 12/19/2023 Cul bact stool aerob ic isol salmonella&shigell STOOL CULTURE Microbiology Routine Loose stools 12/14/2021 9:35 AM EST [facility] End: 12-19-2023 Diabetes tracking panel HEMOGLOBIN A1C Lab Routine Gastroesophageal reflux disease, unspecified whether esophagitis present Duodenitis Hyperlipidemia, unspecified hyperlipidemia type Elevated LFTs Erectile disorder due to medical condition in male Elevated blood sugar 1 Occurrences starting 08/03/2023 until 12/19/2023 [facility] Comment on above: 1 Occurrences starting 08/03/2023 until 12/19/2023 Elastase pancreatic fecal qual/semi-isatu PANCREATIC ELASTASE, STOOL Lab Routine Loose stools 12/14/2021 9:35 AM EST [facility] Fat stain feces urin e/respir secretions FECAL FAT, QUALITATIVE (CRIT * Lab Routine Loose stools 12/14/2021 9:35 AM EST [facility] End: 12-19-2023 Hepatic function panel HEPATIC FUNCTION PANEL Lab Routine Gastroesophageal reflux disease, unspecified whether esophagitis present Duodenitis Hyperlipidemia, unspecified hyperlipidemia type Elevated LFTs Erectile disorder due to medical condition in male Elevated blood sugar 1 Occurrences starting 08/03/2023 until 12/19/2023 [facility] [employer] Work Phone: Comment on above: 1 Occurrences starting 08/03/2023 until 12/19/2023 Iaad ia giardia GIARDIA/CRYPTO E IA Microbiology Routine Loose stools [facility]: 12-19-2023 Lipid 1996 panel - Serum or Plasma FULL LIPID PROFILE Lab Routine Gastroesophageal reflux disease, unspecified whether esophagitis present Duodenitis Hyperlipidemia, unspecified hyperlipidemia type Elevated LFTs Erectile disorder due to medical condition in male Elevated blood sugar 1 Occurrences starting 08/03/2023 until 12/19/2023 [facility] Comment on above: 1 Occurrences starting 08/03/2023 until 12/19/2023 Immunizations Immunization Date Immunization Notes Care Provider [facility] 08-03-2023 zoster vaccine recombinant Anton Walton MD Work Phone: [facility] 12-16-2021 influenza, injectabl e, quadrivalent, preservative free [place] [facility] 12-16-2021 influenza virus vaccine, unspecified formulation Tadeo Placeway DO Work Phone: [facility] 12-12-2021 Pfizer Bivalent Booster (12+ YRS) SARS-COV-2 (COVID-19) vaccine, mRNA, spike protein, LNP, pres. free, 30 mcg/0.3mL dose, myranda-sucrose (TUU=193) Kimberly DAVISRISK CONTROL SPECIALIST Work Phone: [facility] 01-24-2021 Pfizer SARS-COV-2 (COVID-19) vaccine, age 12+ yrs, mRNA, spike protein, LNP, preservative free, 30 mcg/0.3mL dose (WBJ=727) Tadeo Placeway DO Work Phone: [facility] 12-15-2020 influenza, injectabl e, quadrivalent, preservative free Tadeo Placeway DO Work Phone: [facility] 12-15-2020 influenza virus vaccine, unspecified formulation Anton Walton MD Work Phone: [facility] 05-26-2020 Pfizer SARS-COV-2 (COVID-19) vaccine, age 12+ yrs, mRNA, spike protein, LNP, preservative free, 30 mcg/0.3mL dose (GDE=022) Tadeo Placeway DO Work Phone: [facility] Work Phone: 05-05-2020 Pfizer SARS-COV-2 (COVID-19) vaccine, age 12+ yrs, mRNA, spike protein, LNP, preservative free, 30 mcg/0.3mL dose (NQA=646) Tadeo Placeway DO Work Phone: [facility] Work Phone: 12-14-2016 influenza, injectabl e, quadrivalent, contains preservative Tadeo Placeway DO Work Phone: [facility] 03-10-2016 tetanus toxoid, reduced diphtheria toxoid, and acellular pertussis vaccine, adsorbed Tadeo Placeway DO Work Phone: [facility] Payers Date Payer Category Payer Unknown [id number] 2016 Unknown [id number] 1960 Unknown [id number] Social History Date Type Detail Facility Start: [...] [facility] Start: 02-16-2016 Alcohol Comment socially [facility] Start: 1960 Sex Assigned At Not on file [facility] How hard is it for y ou to pay for the very basics like food, housing, medical care, and heating Not very hard [facility] Clinical Notes 05-09-2021 to 08-31-2023 Addendum Note - Anton Walton MD - 08/31/2023 3:01 PM EDTAddendum Note - Anton Walton MD - 08/31/2023 3:01 PM EDTPatient InstructionsPatient InstructionsPatient Instructions Note Date & Type Note Facility 08-31-2023 Note Addended by: ANTON WALTON on: 08/31/2023 03:01 PM Modules accepted: Level of Service [facility] 08-31-2023 Miscellaneous Notes Addended by: ANTON WALTON on: 08/31/2023 03:01 PM Modules accepted: Level of Service documented in this encounter [facility] 08-03-2023 Instructions Anton Walton MD - 08/03/2023 1:59 PM EDT RSV vaccine recommended from pharmacy. documented in this encounter [facility] 08-03-2023 Instructions Anton Walton MD - 08/03/2023 1:59 PM EDT RSV vaccine recommended from pharmacy. documented in this encounter [facility] 08-03-2023 History of Present illness Narrative [...] lipitor. counseled on covid booster. daughter teaching macedonian in [place]. 11/01/21 63 year old male [...] Daughter back , doing masters now. In [employer]. Likes to teach math. Exercising 30-60 minutes [...] 60 min Stress: Stress Concern Present (08/02/2023) [place] [employer] - Occupational Stress Questionnaire Feeling of Stress : To some extent Social Connections: Socially Isolated (08/02/2023) Social Connection and Isolation Panel [NHANES] Frequency of Communication with Friends and Family: Three times a week Frequency of Social Gatherings with Friends and Family: Twice a week Attends Sabianist Services: Never Active Member of Clubs or [...] sheet was given. documented in this encounter [facility] 08-03-2023 History of Present illness Narrative [...] lipitor. counseled on covid booster. daughter teaching macedonian in [place]. 11/01/21 63 year old male [...] Daughter back , doing masters now. In [employer]. 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 Biking, walking. Walking 6 miles, right toes cause problems but wants to wait at this time. Pepcid as needed. THYME beef,/LIBCAST, [employer], beef delicious . Lipids (last 3 years, [...] 60 min Stress: Stress Concern Present (08/02/2023) [place] [employer] - Occupational Stress Questionnaire Feeling of Stress : To some extent Social Connections: Socially Isolated (08/02/2023) Social Connection and Isolation Panel [NHANES] Frequency of Communication with Friends and Family: Three times a week Frequency of Social Gatherings with Friends and Family: Twice a week Attends Sabianist Services: Never Active Member of Clubs or [...] sheet was given. documented in this encounter [facility] 06-20-2023 Note HNO ID: [id number] Author: KRYSTA HYATT APRN.RISK CONTROL SPECIALIST Service: ? Author Type: Nurse Practitioner Type: Progress Notes Filed: 06/20/2023 14:31 Note Text: This note was created using [employer]. Subjective Sergei Soto is a 63 year old male. Patient presents with concerns for sinus pressure and thick nasal mucous x 2 weeks. Patient reports an initial iprovement of symptoms before a decline the last few days. Patient takes Claritin with little impact. Denies any fever or chills. The history is provided by the patient. No client specialist was used. Sinus Problem This is a [...] PROPIONATE 50 MCG/ACTUATION NASAL SPRAY,SUSPENSION Krysta Hyatt APRN.[facility] 06-20-2023 History of Present illness Narrative This note was created using [employer]. Subjective Sergei Soto is a 63 year old male. Patient presents with concerns for sinus pressure and thick nasal mucous x 2 weeks. Patient reports an initial iprovement of symptoms before a decline the last few days. Patient takes Claritin with little impact. Denies any fever or chills. The history is provided by the patient. No client specialist was used. Sinus Problem This is a [...] Krysta Hyatt APRN.BLAYNE documented in this encounter [facility] 06-20-2023 Instructions Krysta Hyatt APRN.BLAYNE - [...] may need to follow up with an steamer blocker and/or ENT - Go to the ER if you begin to experience any severe symptoms, such as facial, eye, or cheek swelling on one side of your face, labored breathing/difficulty breathing, shortness of breath or chest pain, stiffness in neck, difficulty waking up or lethargy, severe headaches, or a rash that looks like a bruise documented in this encounter [facility] 05-28-2023 Telephone encounter Note Patient has not been seen by this Provider or Department in more than 1 year. Pharmacy has sent a [employer] message to the patient to schedule an office visit. Thank you [facility] 05-28-2023 Miscellaneous Notes Patient has not been seen by this Provider or Department in more than 1 year. Pharmacy has sent a [employer] message to the patient to schedule an office visit. Thank you documented in this encounter [facility] 12-19-2021 Procedure note Associated Ord er(s): LIVER ELASTOGRAPHY Images from the original note were not included. Velocity Controlled Transient Elastography (Fibroscan) Roving Sizer: Suzette Tamayo Attending: Tiara Blackburn APRN-CNP Patient was identified via name and . Sergei Soto presents to endoscopy suite for VCTE. Referring Provider: Self Patient Diagnosis: Hepatic steatosis [[id number]] Two Pt identifiers where confirmed. Pt procedure [...] to hepatology. Interpreting Provider: Tiara Blackburn APRN-CNP [employer] Work Phone: 12-19-2021 Procedure note Associated Ord er(s): LIVER ELASTOGRAPHY Images from the original note were not included. Velocity Controlled Transient Elastography (Fibroscan) Roving Sizer: Suzette Tamayo Attending: Tiara Blackburn APRN-CNP Patient was identified via name and . Sergei Soto presents to endoscopy suite for VCTE. Referring Provider: Self Patient Diagnosis: Hepatic steatosis [[id number]] Two Pt identifiers where confirmed. Pt procedure [...] Tiara Blackburn APRN-CNP documented in this encounter [facility] 12-14-2021 Reason for referr al (narrative) Specialty Diagnoses / Procedures Referred By Harvinder t Referred To Contact Kimberly Su APRN-CNP [address] [place] [address] [place] [address] Referral ID Status Reason Start Date Expiration [...] may cause. If you rely on the [facility] for transportation you must schedule a morning appointment. Please inform the visual lead when you are scheduling your appointment. Patients with special needs (children, language barrier, etc.) may have a family member stay with them during the recovery phase. Please follow preparation instructions for your procedure. If you have any questions please call Sunday-Sunday 7:30 am-4:30 pm . Endoscopy Hours are Sunday-Sunday 7:30 am-4:30 pm. [id number] SHOULD BE USED BY GI PHYSICIANS ONLY. If you need any of the following procedures scheduled for your patient, they must first have a GI consult. Please order a Gastroenterology Service Request ([id number]). Please select the procedure(s) you wish to have scheduled for your patient: Fibroscan Location: [address] [address] Office Hours: Sunday through Sunday 7:30a - [...] Services sign. Please register at the front counter attendant. After registering, take elevator F to the [...] t Referred To Contact Kimberly Su APRN-CNP [address] [place] [address] [place] [address] Referral ID Status Reason Start Date Expiration [...] may cause. If you rely on the [facility] for transportation you must schedule a morning appointment. Please inform the visual lead when you are scheduling your appointment. Patients with special needs (children, language barrier, etc.) may have a family member stay with them during the recovery phase. Please follow preparation instructions for your procedure. If you have any questions please call Sunday-Sunday 7:30 am-4:30 pm . Endoscopy Hours are Sunday-Sunday 7:30 am-4:30 pm. [id number] SHOULD BE USED BY GI PHYSICIANS ONLY. If you need any of the following procedures scheduled for your patient, they must first have a GI consult. Please order a Gastroenterology Service Request ([id number]). Please select the procedure(s) you wish to have scheduled for your patient: Hydrogen Breath Test (5 hour test) I would like the procedure scheduled by My fuller brush man Please schedule next available MARGARETTE Braden [facility] SUITE HYDROGEN BREATH TEST A [...] having this test for the results. LOCATION: [place] [address] Office Hours: Sunday through Sunday 7:30a - [...] Services sign. Please register at the front counter attendant. After registering, take elevator F to the 4th floor. Test Date: Test Time: WE MAKE EVERY ATTEMPT TO MAINTAIN OUR SCHEDULE; HOWEVER, IT IS NOT ALWAYS POSSIBLE. SOME PROCEDURES MAY TAKE LONGER THAN OTHERS AND OUR CASES ARE SCHEDULED TO FOLLOW ONE ANOTHER. WE APOLOGIZE FOR ANY DELAYS. MARGARETTE Braden Question Answer Reason for Request: Hydrogen Breath Test Comments SIBO + fructose [id number] Reason for referral (narrative)* Specialty Diagnoses / Procedures Referred By Contac t Referred To Contact Kimberly Su APRN-CNP [address] [place] [address] [place] [id number] Referral ID Status Reason Start Date Expiration [...] may cause. If you rely on the [facility] for transportation you must schedule a morning appointment. Please inform the visual lead when you are scheduling your appointment. Patients with special needs (children, language barrier, etc.) may have a family member stay with them during the recovery phase. Please follow preparation instructions for your procedure. If you have any questions please call Sunday-Sunday 7:30 am-4:30 pm . Endoscopy Hours are Sunday-Sunday 7:30 am-4:30 pm. [id number] SHOULD BE USED BY GI PHYSICIANS ONLY. If you need any of the following procedures scheduled for your patient, they must first have a GI consult. Please order a Gastroenterology Service Request ([id number]). Please select the procedure(s) you wish to have scheduled for your patient: Fibroscan Location: [place] [address] Office Hours: Sunday through Sunday 7:30a - [...] Services sign. Please register at the front counter attendant. After registering, take elevator F to the [...] the area for measuring purposes. Kimberly Su APRN-RISK CONTROL SPECIALIST Question Answer Reason for Request: Fibroscan * Specialty Diagnoses / Procedures Referred By Harvinder goodson Referred To Contact Kimberly Su APRN-CNP [address] [place] [address] [place] [address] Referral ID Status Reason Start Date Expiration [...] may cause. If you rely on the [facility] for transportation you must schedule a morning appointment. Please inform the visual lead when you are scheduling your appointment. Patients with special needs (children, language barrier, etc.) may have a family member stay with them during the recovery phase. Please follow preparation instructions for your procedure. If you have any questions please call Sunday-Sunday 7:30 am-4:30 pm [phone]. Endoscopy Hours are Sunday-Sunday 7:30 am-4:30 pm. [id number] SHOULD BE USED BY GI PHYSICIANS ONLY. If you need any of the following procedures scheduled for your patient, they must first have a GI consult. Please order a Gastroenterology Service Request ([id number]). Please select the procedure(s) you wish to have scheduled for your patient: Hydrogen Breath Test (5 hour test) I would like the procedure scheduled by My fuller brush man Please schedule next available MARGARETTE Braden [facility] [facility] MULTISPECIALTY ENDOSCOPY SUITE HYDROGEN BREATH TEST A [...] having this test for the results. LOCATION: [place] [address] Office Hours: Sunday through Sunday 7:30a - [...] Services sign. Please register at the front counter attendant. After registering, take elevator F to the 4th floor. Test Date: Test Time: WE MAKE EVERY ATTEMPT TO MAINTAIN OUR SCHEDULE; HOWEVER, IT IS NOT ALWAYS POSSIBLE. SOME PROCEDURES MAY TAKE LONGER THAN OTHERS AND OUR CASES ARE SCHEDULED TO FOLLOW ONE ANOTHER. WE APOLOGIZE FOR ANY DELAYS. MARGARETTE Braden Question Answer Reason for Request: Hydrogen Breath Test Comments SIBO + fructose [id number] History of Present illness Narrative* Kimberly Su [...] sent to PCP MD Kimberly Garcias APRN-CNP [id number] Division of Gastroenterology [facility] documented in this [id number] History of Present illness Narrative* Kimberly Su, FINISHED CIGAR MAKER-RISK CONTROL SPECIALIST - 11/30/2021 9:30 AM EDT Images from [...] sent to PCP MD Kimberly Garcias APRN-CNP [id number] Division of Gastroenterology [facility] documented in this [id number] History of Present illness Narrative* Anton Walton [...] lipitor. counseled on covid booster. daughter teaching macedonian in [place]. 11/01/21 61 year old male seen and assessed. Feels better but abd still bloated after eating. Had covid in August 2021. Moving bowels once daily. Will be getting blood work today. 4 drinks a week alcohol. Estimated 10-year risk of a first ASCVD event is 15.2%. ASCVD is defined as OK, CHD , or stroke Orders placed or [...] More than three times a week Attends Sabianist Services: Never Active Member of Clubs or [...] Plan: Anton Walton MD documented in this [id number] Telephone encounter Note* Telephone Encounter - Maggie [...] appointment with PCP (ANTON WALTON) is 11/01/2021 [id number] Miscellaneous Notes* Telephone Encounter - Maggie Starks [...] (ANTON WALTON) is 11/01/2021 documented in this [id number] Instructions* Patient Instructions* Anton Walton MD - 07/22/2021 11:08 AM EDT [id number] dermatology. Please call to make a appt. documented in this [id number] History of Present illness Narrative* Anton Walton [...] lipitor. counseled on covid booster. daughter teaching macedonian in [place]. Estimated 10-year risk of a first ASCVD event is 13.9%. ASCVD is defined as OK, CHD , or stroke Orders placed or [...] More than three times a week Attends Sabianist Services: Never Active Member of Clubs or [...] cream Anton Walton MD documented in this [id number] Miscellaneous Notes* Telephone Encounter - Rena Brent - 06/14/2021 10:11 AM EDT PT called. [...] phone call to Dr. Walton's office at [phone] for a message from the provider. REFERENCE [...] event is 14.1%. ASCVD is defined as OK, CHD , or stroke Will recommend lipitor 20 mg daily, to help lower lipids. Exercise 30 minutes 4-5 times a week. Food low in saturated fat. Please inform Thanks. Anton Walton MD documented in this [id number] Hospital Discharge instructions* Instructions* Laura Mosher RN - 05/16/2021 PERIOPERATIVE DISCHARGE/HOME-GOING INSTRUCTIONS ANESTHESIA - GENERAL (ADULT) If a problem arises, you may contact your physician by calling [phone] and asking for the resident net web application developer for service. Special Care Needs: Activity: Rest [...] very uncomfortable and can t urinate, call [phone] or come to the emergency room. The day after surgery, a nurse will call to check on you. However, if there are any questions or concerns, please call us at the number listed in the home going instructions. documented in this [id number] Miscellaneous Notes* Anesthesia Attestation - Farideh Hunter MD - 05/16/2021 1:58 PM EDT Anesthesia Attestation ATTESTATION OF INFORMED CONSENT FOR ANESTHESIA Anesthesia options were discussed with the patient and/or legal accounts receivable representative. The risks, benefits and alternatives were reviewed. Questions regarding anesthesia were answered. Patient and/or legal accounts receivable representative knows such anesthetics and procedures may be performed by Resident physicians, Certified Anesthesiologist Assistants, or Certified Nurse Anesthetists under the supervision of a physician. The patient /or the patient s legal representativeagree with the plan for anesthesia. documented in this [id number] Instructions* Patient Instructions* Yazan Adams APRN-CNP - [...] for pain Please hold all Vitamin E, [place] 3, fish oil and herbal supplements for 1 week prior to surgery documented in this [id number] Miscellaneous Notes* PSE Appt H&P - Jose Luis Melgar - 05/09/2021 8:20 AM EDT Patient was identified by name and date of . Jose Luis Melgar Bill of rights provided to patient * PSE Appt H&P - Yazan Adams APRN-CNP - 05/06/2021 12:15 PM EDT Images from the original note were not included. Presurgical Evaluation Sergei Soto, [id number] 61 year old Male 05/09/2021 VITAL SIGNS: [...] Row Name Office Visit from 05/09/2021 in [facility] Pre-Surgical Evaluation History of sleep apnea? No [...] previous ECGs available Confirmed by JEN AVILA ([id number]) on 04/26/2021 2:17:49 PM ECHO: Last Echocardiogram: [...] as needed for nausea. 20 Tablet 0 [place]-3 Fatty Acids (Fish Oil) 1000 MG CAPS [...] reviewed, and patient questions answered. Interviewer signature: MARGARETTE Crowe 8:29 AM 05/09/2021 documented in this [...] unspecified trigger- Primary [facility] Diagnosis Hyperlipidemia, unspecified hyperlipidemia type- Primary [...] (BMI) 28.0-28.9, adult documented in this encounter [facility] Reason for Referral Specialty Diagnoses / Procedures Referred By Harvinder goodson Referred To Contact Radiology Diagnoses Idiopathic chronic pancreatitis (HCC) Procedures MR CHOLANG/PANCREAS (MRCP) W/+W/O Gen Cuevas MD [address] [place] [address] [facility] MRI [address] [place] [address] Referral ID Status Reason Start Date Expiration Date V isits Requested Visits Authorized [id number] Closed Transfer of Care-[facility] 05/03/2021 06/02/2021 1 1 Specialty Diagnoses / Procedures Referred By Harvinder goodson Referred To Contact Diagnoses Erectile disorder due to medical condition in male Anton Walton MD [address] [place] [address] Referral ID Status Reason Start Date Expiration Date Visits Re quested Visits Authorized [id number] Denied 3 3 Summary Purpose Family History No Family History Records FoundNo Family History Records Found Advance Directives No Advanced Directives Records FoundNo Advanced Directives Records Found Additional Source Comments Care Teams (unrecognized sec tion and content) Assurance Officer Relationship Specialty Start Date End Date Anton Walton MD [address] [place] [address] PCP - General Geriatrics 12/15/20 [facility], [address] [address] Physician Physical Medicine & Rehab/PM&R 06/11/20 Gen Cuevas MD [address] [place] [address] 43624 Physician Gastroenterology 04/09/21 Assurance Officer Relationship Specialty Start Date End Date Anton Walton MD [address] [place] [address] 18225 PCP - General Geriatrics 12/15/20 [facility] T[place], [address] [address] Physician Physical Medicine & Rehab/PM&R 06/11/20 Gen Cuevas MD [address] [place] [address] 25008 Physician Gastroenterology 04/09/21 Assurance Officer Relationship Specialty Start Date End Date Anton Walton MD [address] [place] [address] 77902 PCP - General Geriatrics 12/15/20 [facility], [address] [address] Physician Physical Medicine & Rehab/PM&R 06/11/20 Gen Cuevas MD [address] [place] [address] 15781 Physician Gastroenterology 04/09/21 Assurance Officer Relationship Specialty Start Date End Date Anton Walton MD [address] [place] [address] 77577 PCP - General Geriatrics 12/15/20 Tadeo Denis DO [address] [place] [address] 32312 Physician Physical Medicine & Rehab/PM&R 06/11/20 Gen Cuevas MD [address] [place] [address] 98979 Physician Gastroenterology 04/09/21 Assurance Officer Relationship Specialty Start Date End Date Anton Walton MD [address] [place] [address] 23002 PCP - General Geriatrics 12/15/20 Tadeo Denis DO [address] [place] [address] 29174 Physician Physical Medicine & Rehab/PM&R 06/11/20 Gen Cuevas MD [address] [place] [address] 36420 Physician Gastroenterology 04/09/21 Assurance Officer Relationship Specialty Start Date End Date Anton Walton MD [address] [place] [address] 14102 PCP - General Geriatrics 12/15/20 Tadeo Denis DO [address] [place] [address] 72570 Physician Physical Medicine & Rehab/PM&R 06/11/20 Gen Cuevas MD [address] [place] [address] 27646 Physician Gastroenterology 04/09/21 Assurance Officer Relationship Specialty Start Date End Date Anton Walton MD [address] [place] [address] 26315 PCP - General Geriatrics 12/15/20 Tadeo Denis DO [address] [place] [address] 89827 Physician Physical Medicine & Rehab/PM&R 06/11/20 Gen Cuevas MD [address] [place] [address] 05310 Physician Gastroenterology 04/09/21 Assurance Officer Relationship Specialty Start Date End Date Anton Walton MD [address] [place] [address] 15139 PCP - General Geriatrics 12/15/20 Tadeo Denis DO [address] [place] [address] 72027 Physician Physical Medicine & Rehab/PM&R 06/11/20 Gen Cuevas MD [address] [place] [address] 59676 Physician Gastroenterology 04/09/21 Assurance Officer Relationship Specialty Start Date End Date Anton Walton MD [address] [place] [address] 59140 PCP - General Geriatrics 12/15/20 Tadeo Denis DO [address] [place] [address] 07846 Physician Physical Medicine & Rehab/PM&R 06/11/20 Gen Cuevas MD [address] [place] [address] 98994 Physician Gastroenterology 04/09/21 Assurance Officer Relationship Specialty Start Date End Date Anton Walton MD [address] [place] [address] 38033 PCP - General Geriatrics 12/15/20 [facility] [address] [place] [address] 25505 Physician Physical Medicine & Rehab/PM&R 06/11/20 Gen Cuevas MD [address] [place] [address] 10662 Physician Gastroenterology 04/09/21 Assurance Officer Relationship Specialty Start Date End Date Anton Walton MD [address] [place] [address] 51250 PCP - General Geriatrics 12/15/20 [facility], [address] [address] Physician Physical Medicine & Rehab/PM&R 06/11/20 Gen Cuevas MD [address] [place] [address] 67328 Physician Gastroenterology 04/09/21 Assurance Officer Relationship Specialty Start Date End Date Anton Walton MD [address] [place] [address] 81142 PCP - General Geriatrics 12/15/20 [facility] [address] [place] [address] 63716 Physician Physical Medicine & Rehab/PM&R 06/11/20 Gen Cuevas MD [address] [place] [address] 17839 Physician Gastroenterology 04/09/21 Kimberly Su APRN-BLAYNE [address] [place] [address] [place] [address] MACHINE FEEDER Gastroenterology 12/10/21 Assurance Officer Relationship Specialty Start Date End Date Anton Walton MD [address] [place] [address] 91959 PCP - General Geriatrics 12/15/20 [facility], [address] [address] Physician Physical Medicine & Rehab/PM&R 06/11/20 Gen Cuevas MD [address] [place] [address] 62292 Physician Gastroenterology 04/09/21 Kimberly Su APRN-RISK CONTROL SPECIALIST [address] [place] [address] [place] [address] MACHINE FEEDER Gastroenterology 12/10/21 Assurance Officer Relationship Specialty Start Date End Date Anton Walton MD [address] [place] [address] 33600 PCP - General Geriatrics 12/15/20 [facility], [address] [address] Physician Physical Medicine & Rehab/PM&R 06/11/20 Gen Cuevas MD [address] [place] [address] 66610 Physician Gastroenterology 04/09/21 Kimberly Su APRN-RISK CONTROL SPECIALIST [address] [place] [address] [place] [address] MACHINE FEEDER Gastroenterology 12/10/21 Assurance Officer Relationship Specialty Start Date End Date Anton Walton MD [address] [place] [address] 75572 PCP - General Geriatrics 12/15/20 Tadeo Denis DO [address] [place] [address] 77335 Physician Physical Medicine & Rehab/PM&R 06/11/20 Gen Cuevas MD [address] [place] [address] 77196 Physician Gastroenterology 04/09/21 Kimberly Su, FINISHED CIGAR MAKER-RISK CONTROL SPECIALIST [address] [place] [address] [place] [address] MACHINE FEEDER Gastroenterology 12/10/21 Assurance Officer Relationship Specialty Start Date End Date Anton Walton MD [address] [place] [address] 50653 PCP - General Geriatrics 12/15/20 Tadeo Denis DO [address] [place] [address] 49493 Physician Physical Medicine & Rehab/PM&R 06/11/20 Gen Cuevas MD [address] [place] [address] 19185 Physician Gastroenterology 04/09/21 Kimberly Su, FINISHED CIGAR MAKER-RISK CONTROL SPECIALIST [address] [place] [address] [place] [address] MACHINE FEEDER Gastroenterology 12/10/21 Assurance Officer Relationship Specialty Start Date End Date Anton Walton MD [address] [place] [address] 35643 PCP - General Geriatrics 12/15/20 Tadeo Denis DO [address] [place] [address] 85816 Physician Physical Medicine & Rehab/PM&R 06/11/20 Gen Cuevas MD [address] [place] [address] 67806 Physician Gastroenterology 04/09/21 Kimberly Su APRN-RISK CONTROL SPECIALIST [address] [place] [address] [place] [address] MACHINE FEEDER Gastroenterology 12/10/21 Assurance Officer Relationship Specialty Start Date End Date Torsten Mosqueda MD PCP - General Internal Medicine 02/09/16 Assurance Officer Relationship Specialty Start Date End Date Anton Walton MD [address] [place] [address] 69695 PCP - General Geriatrics 12/15/20 Tadeo Denis DO [address] [place] [address] 60565 Physician Physical Medicine & Rehab/PM&R 06/11/20 Gen Cuevas MD [address] [place] [address] 20000 Physician Gastroenterology 04/09/21 Kimberly Su APRN-RISK CONTROL SPECIALIST [address] [place] [address] [place] [address] MACHINE FEEDER Gastroenterology 12/10/21 Assurance Officer Relationship Specialty Start Date End Date Anton Walton MD [address] [place] [address] 32069 PCP - General Geriatrics 12/15/20 Tadeo Denis DO [address] [place] [address] 96870 Physician Physical Medicine & Rehab/PM&R 06/11/20 Gen Cuevas MD [address] [place] [address] 66125 Physician Gastroenterology 04/09/21 Kimberly Su APRN-RISK CONTROL SPECIALIST [address] [place] [address] [place] [address] MACHINE FEEDER Gastroenterology 12/10/21 Assurance Officer Relationship Specialty Start Date End Date Anton Walton MD [address] [place] [address] 69235 PCP - General Geriatrics 12/15/20 Tadeo Denis DO [address] [place] [address] 59063 Physician Physical Medicine & Rehab/PM&R 06/11/20 Gen Cuevas MD [address] [place] [address] 37188 Physician Gastroenterology 04/09/21 Kimberly Su APRN-RISK CONTROL SPECIALIST [address] [place] [address] [place] [address] MACHINE FEEDER Gastroenterology 12/10/21 Assurance Officer Relationship Specialty Start Date End Date Anton Walton MD [address] [place] [address] 89416 PCP - General Geriatrics 12/15/[address] [place], [place] [address] Physician Physical Medicine & Rehab/PM&R 06/11/20 Gen Cuevas MD [address] [place] [address] Physician Gastroenterology 04/09/21 Kimberly Su, FINISHED CIGAR MAKER-RISK CONTROL SPECIALIST [address] [place] [address] MACHINE FEEDER Gastroenterology 12/10/21 Reason for Visit (unrecogniz ed section and content) Specialty Diagnoses / Procedures Referred By Contac t Referred To Contact Radiology Diagnoses Idiopathic chronic pancreatitis (HCC) Procedures MR CHOLANG/PANCREAS (MRCP) W/+W/O Gen Cuevas MD [address] [place] [address] [facility] MRI [address] [place] [address] Referral ID Status Reason Start Date Expiration Date V isits Requested Visits Authorized [id number] Closed [facility] Care-[facility] 05/03/2021 06/02/2021 1 1 Reason Onset Date Comments Discuss results test/procedures 06/09/2021 reference 99-06/14/21 06/09/2021 Reason Comments Discuss results test/procedures Reason Comments Refill Reason Comments Consult With Provider F/u Reason Comments CONSULT, NEW GI Specialty Diagnoses / Procedures Referred By Contac t Referred To Contact Gastroenterology Diagnoses Anton Echavarria MD [address] [place], [place] [address] S GASTROENTEROLOGY [address] [place] [address] Referral ID Status Reason Start Date Expiration Date V isits Requested Visits Authorized [id number] Authorized 11/28/2021 11/28/2022 3 3 Reason Onset [...] or prosecute any alcohol or drug abuse patient.[facility] (unrecognized sect ion and content) No Status Records FoundNo Status Records Found INFORMATION SOURCE (unrecogn ized section and content) DATE CREATED AUTHOR 06/22/2023 [facility] DATE CREATED AUTHOR 'S CARO MAC 08/05/2023 [facility] FOR RECORDS PERTAINING TO PATIENTS [...] BE BASED ON THE PRIMARY CLINICAL RECORDS. [employer] [facility]. provides no warranty or guarantee of the accuracy or completeness of information in this document.
--- NOTE | 2023-10-29 | XR_ITS ---
The [address] [address] Patient Name: ROXIE LYNCH MRN: [id number] date: 1960 Sex: M Assigned Patient Location: Current Patient Location: Accession/Order Number: [id number] Exam Date: 10/29/2023 10:10 Report Date: 10/31/2023 07:03 At the request of: TINO LIPSCOMB Procedure: XR elbow LT min 3V PROCEDURE: XR elbow LT min 3V HISTORY: LEFT ELBOW PAIN COMPARISON: XR elbow left 10/01/2023 FINDINGS: BONES:Stable alignment and minimal residual sclerosis at base of radial head. SOFT TISSUES:No visible soft tissue swelling. EFFUSION:None visible. OTHER: Negative. XR/XR elbow LT min 3V IMPRESSION: 1. Stable alignment and likely near complete osseous healing of prior radial head fracture. Electronically authenticated by: TINO ANN Date: 10/31/2023 07:03
== END 2023-10-29 10:03 | disposition home or self-care (01) ==
LOC: EC 10:02
PROVIDERS: Visit Provider Orthopaedic Surgery
DX: S52.125A Nondisplaced fracture of head of left radius, initial encounter for closed fracture (principal)
CPT/HCPCS: 73080